=== PATIENT | male | born 1935 | race Caucasian/White ===

== ENCOUNTER 2023-07-11 21:37 | Emergency (ER) | payer OTHER, SELFPAY ==
[2023-07-11 21:41] VITALS: BP 166/96
[2023-07-11 22:29] VITALS: BMI 24.2
[2023-07-11 22:33] VITALS: BP 154/84
--- NOTE | 2023-07-12 02:42 | ED.GENMED ---
History of Present Illness
General
Chief Complaint: Blood Pressure Problem
Source: patient
Exam Limitations: none
Time Seen by Provider: 07/11/23 22:35
Nursing documentation reviewed up to this point in time: agreed with
Travel History
Have you had any contact with someone who has COVID-19?: No
Do you have any symptoms of coronavirus? Fever > 100 degrees, chills, cough, shortness of breath, sore throat, loss of taste or smell, muscle aches, or headache?: No
History of Present Illness
History of Present Illness:
Patient to ED with complaint of elevated blood pressure reading. States he is compliant with current regime. Follows with cardiology regulary. Last appointment was in Apr, no changes were made at that time. Brought to ED by spouse for eval.
Past History
Past History
ED Past Medical History: Asthma, Cancer (Prostate CA with Radiation), COPD, GERD, HTN (borderline) and Other (Bronchitis, BPH, Chronic sinus infections,)
ED Past Surgical History: Orthopedic (THUMB) and Other (UMBILICAL AND VENTRAL HERNIA REPAIR 01/25/13)
Social History
Tobacco: 2nd hand smoke exposure
Alcohol: None
Drug: None
Personal:
Living: alone
Employment: Retired
Family History
Family History: Hypertension; Negative Sudden
Phy Exam
General Physical Exam
General Presentation: well appearing and no apparent distress
General age: appears stated age
General Skin: warm and dry
General Habitus: normal
General Mental: alert
Cardiovascular Exam
Cardiovascular Exam: regular rate/rhythm and no edema
Pulmonary Exam
Pulmonary Exam: lungs clear, no respiratory distress and chest non tender
Neurological Exam
Neurological Exam: alert, oriented x3, no motor deficits, no sensory deficits and speech normal
Musculoskeletal Exam
Musculoskeletal Exam: full ROM and no edema
Skin Exam
Skin Exam: normal color, warm/dry and no rash
Psychiatric Exam
Psychiatric Exam: normal mood/affect
Course
Vital Signs
Initial and Last Documented VS:
Initial Vital Signs
Temp Pulse Resp BP Pulse Ox
98.7 F 74 18 166/96 97
07/11/23 21:41 07/11/23 21:41 07/11/23 21:41 07/11/23 21:41 07/11/23 21:41
Last Documented Vital Signs
Temp Pulse Resp BP Pulse Ox
98.7 F 68 18 154/84 97
07/11/23 21:41 07/11/23 22:33 07/11/23 22:33 07/11/23 22:33 07/11/23 22:33
*Radiology
Radiology exam reviewed: radiology read reviewed
*Pulse Oximetry
Patient hypoxic: no
*EKG
Interpretation: normal
Comparison EKG: no changes
*Critical Care Note
Total Time (30-74mins, 75-104mins- exclusive of procedures): Not Applicable
Update Note
Update Note:
Patient to ED with complaint of elevated bp. COmpliant with current mediation. No CP/pressure. Cardiology consulted. Recommending an additional dose of Coreg tonight, increasng BID doses to 12.5mg. BP improve after additional COreg dose. Still
mildly elevated at 150/100 but improved from readings prior to coreg dose. He will continue as planned and follow up with Cardiology on Friday. Also reporting daily heache at bedtime. Hx of migraines. Has been managing symptoms with accupuncture
but reports this does not seem to be helpful lately. States he was seen by neuro in the past, prescribed Maxalt but has since stopped med in favor of accupuncture. I do not feel his headaches are a result of BP elevation. Headaches are at the
same time each night. Recommend revisiting neurology for further management. Case discussed with Dr. Blount who also evaluated this patient, agtees with findings and plan. He is discharged home and will follow up as recommended.
ED Attending Note
-
Portions of this chart may have been created with voice recognition software.� Occasional wrong word or��sound alike� substitutions may have occurred due to the inherent limitations of voice recognition software.
Discharge Plan
Departure
Patient Disposition: Home (Routine Discharge)
Date of Disposition: 07/11/23
Time of Disposition: 23:40
Patient with high blood pressure during this ER visit?: No
Condition: Good
Covid-19: Not Applicable
Discharge Problem:
Elevated blood pressure reading, Shingles
Instructions: Shingles (DC), BLOOD PRESSURE
Prescriptions:
No Action
Centrum Silver 1 EACH tablet
1 ea PO DAILY
fenofibrate nanocrystallized 48 MG tablet
48 mg PO QPM
losartan 50 MG tablet
100 mg PO BID
Rx Instructions:
07/11/23-PATIENT ONLY SUPPOSE TO BE TAKING ONE (100MG DAILY) BUT TAKES 2 DAILY (200MG DAILY) A DAY
metoprolol succinate 50 MG tablet extended release 24 hr
50 mg PO DAILY
potassium gluconate 99 MG tablet
1 tab PO DAILY
Fish Oil 1 EACH capsule,delayed release(DR/EC)
2 ea PO BID
hydrochlorothiazide 12.5 MG tablet
12.5 mg PO DAILY
acetaminophen [Tylenol] 325 mg Tablet
650 mg PO QIDPRN PRN (Reason: MILD PAIN)
fexofenadine [Torri] 60 mg Tablet
60 mg PO HS
sennosides-docusate sodium [Senna-S] 8.6-50 mg Tablet
2.5 tab-cap PO DAILY
valacyclovir [Valtrex] 500 mg Tablet
500 mg PO TID
Patient Comments:
FOR 7 DAYS STARTING ON 07/10/23
aspirin 81 mg Tablet,Delayed Release (Dr/Ec)
81 mg PO DAILY
diphenhydramine HCl [Benadryl Allergy] 25 mg Tablet
50 mg PO HS
lansoprazole 30 mg Capsule,Delayed Release(Dr/Ec)
30 mg PO DAILY
montelukast [Singulair] 10 mg Tablet
10 mg PO HS
Gemtesa 75 mg Tablet
75 mg PO DAILY
Activity Restrictions/Additional Instructions:
Follow up with your family doctor on Friday.
Interventions
Interventions:
*Risk Screen - Suicide Last Done: 07/11/23 21:41
*General Assessment Last Done: 07/11/23 21:41
*Neglect/Abuse Screening Last Done: 07/11/23 21:41
ED- Fall Risk Assessment Last Done: 07/11/23 22:34
*ED COVID-19 Vaccine History Last Done: 07/11/23 21:41
*Nursing Disposition Last Done: 07/11/23 23:57
ED- Cardiac Assessment Last Done: 07/11/23 22:33
ED- Neurological Assessment Last Done: 07/11/23 22:33
ED- Pulmonary Assessment Last Done: 07/11/23 22:33
Discharge Date and Time
Discharge Date/Time: 07/11/23 23:57
== END 2023-07-11 23:57 | disposition home or self-care (01) ==
LOC: EMR 21:37
PROVIDERS: EMERGENCY PHYSICIAN Emergency Medicine; FAMILY PHYSICIAN Internal Medicine
DX: B02.9 Zoster without complications (principal); I10 Essential (primary) hypertension; Z77.22 Contact with and (suspected) exposure to environmental tobacco smoke (acute) (chronic)
CPT/HCPCS: 99283

== ENCOUNTER → 2023-08-15 15:02 | Outpatient (REF) | payer OTHER, SELFPAY | LOC: DHCBC HW 15:02 | PROVIDERS: ATTENDING PHYSICIAN Internal Medicine Cardiovascular Disease; FAMILY PHYSICIAN Internal Medicine | DX: I35.0 Nonrheumatic aortic (valve) stenosis (principal) | CPT/HCPCS: 93306 ==

== ENCOUNTER → 2023-12-16 14:46 | Outpatient (REF) | payer OTHER, SELFPAY ==
[2023-12-16 17:09] LABS: PSA, Total - Diagnostic 1.32 ng/ml (0.0-4.0)
== END ==
LOC: REG 14:46
PROVIDERS: ATTENDING PHYSICIAN Specialist; FAMILY PHYSICIAN Internal Medicine
DX: Z85.46 Personal history of malignant neoplasm of prostate (principal)
CPT/HCPCS: 36415; 84153

== ENCOUNTER 2023-12-25 02:13 | Inpatient (IN) | payer OTHER, SELFPAY ==
[2023-12-24 22:35] VITALS: BP 189/111
--- NOTE | 2023-12-24 22:37 | EDRN ---
Pts daughter Michele Woodruff can be reached at her cell as she is currently in [facility]
[2023-12-24 23:00] VITALS: BP 141/95
--- NOTE | 2023-12-24 23:11 | ED.GENMED ---
History of Present Illness
<AMEE Landin - Last Filed: 12/24/23 23:34>
General
Chief Complaint: Blood Pressure Problem
Source: patient
Time Seen by Provider: 12/24/23 22:36
History of Present Illness
History of Present Illness:
Patient is an 88 y/o male with PMHx of HTN, HLD, prostate CA, DVT, and COPD presenting with elevated blood pressure. Patient does not appear to be the most reliable historian. He states he missed his dose of BP meds on Friday and when he checked his
pressure on Friday is systolic was 88. He states he called his PCP and they told him to increase his water intake. The patient states he decided not to take his BP medications although his PCP did not tell him to discontinue them. The patient states
he checked his pressure today after being off his medications since Friday and his systolic was 202. He states he has also had increased SOB since Friday. He states he does 3 nebulizer treatments daily and he has still be short of breath. He also
notes he became nauseous after dinner tonight around 6 pm and had 1 episode of nonbloody emesis. He denies any dizziness, change in vision, cough, chest pain, abdominal pain, diarrhea, or urinary sx. He states his left leg has been swollen since his
DVT in the past. He denies any pain or cramping in either leg.
<Richie Bro DO - Last Filed: 12/25/23 01:15>
General
Exam Limitations: none
Nursing documentation reviewed up to this point in time: agreed with
Past History
<AMEE Landin - Last Filed: 12/24/23 23:34>
Past History
ED Past Medical History: Asthma, Cancer (Prostate CA with Radiation), COPD, GERD, HTN (borderline) and Other (Bronchitis, BPH, Chronic sinus infections,)
ED Past Surgical History: Orthopedic (THUMB) and Other (UMBILICAL AND VENTRAL HERNIA REPAIR 01/25/13)
Social History
Tobacco: 2nd hand smoke exposure
Alcohol: None
Drug: None
Personal:
Living: alone
Employment: Retired
Family History
Family History: Hypertension; Negative Sudden
<Richie Bro, DO - Last Filed: 12/25/23 01:15>
Past History
ED Past Medical History: Other (Bronchitis, BPH, Chronic sinus infections, DVT)
Review of Systems
<Richie Bro, DO - Last Filed: 12/25/23 01:15>
Review of Systems
Allergies reviewed?: Yes
All Other Systems: Not applicable
Respiratory: Reports trouble breathing
Cardiac: Reports chest pain
Musculoskeletal: Reports edema
Phy Exam
<AMEE Landin - Last Filed: 12/24/23 23:34>
Physical Exam
Physical Exam:
GENERAL: Alert , in no apparent distress
EYE: pupils equal and reactive
Throat: Airway intact, no exudates
NECK: Supple, no significant adenopathy.
CARDIAC: Regular rate and rhythm .
LUNGS: Patient with short, labored breathing. Clear breath sounds bilaterally, no wheezes/rales/rhonchi
ABDOMEN: Soft, nondistended, nontender, no cvat
NEUROLOGICAL: AAOx3, no focal neuro deficits
SKIN: Warm and dry, skin intact.
MUSCULOSKELETAL: Left LE edema from the knee down. Dorsalis pedis pulses 2+ b/l. No calf tenderness.
PSYCH: Normal and appropriate interaction.
Course
<AMEE Landin - Last Filed: 12/24/23 23:34>
Orders/Labs/Results
Orders:
Orders
12/24/23 23:08
IV Insert/Care/Rem.- Treatment PRN
Losartan [Cozaar] 100 mg PO NOW STA
Metoprolol [Lopressor] 50 mg PO NOW STA
Pulse Ox/cont/shift [RESP] Stat
Quantity: 1
12/24/23 23:09
Electrocardiogram (*1) Stat
Reason for Study: Other
Other Reason for Exam: chest pain
Cardiac Monitoring- Treatment ONCE
EKG- Treatment ONCE
CR Chest - 2 Views Urgent
Comment:
Reason For Exam: short of breath
12/24/23 23:45
Comprehensive Metabolic Panel Urgent
D-Dimer Urgent
PTT Urgent
Prothrombin Time Urgent
Serum Osmolality Urgent
Comment: ADD ON
12/24/23 23:46
Complete Blood Count/With Diff Urgent
NT-proBNP Urgent
Troponin I Urgent
12/25/23 00:18
Legs, left US [US Periph Venous LOWER Ext LT] Urgent
Comment:
Reason For Exam: left leg swelling
12/25/23 00:19
CT Chest Pe Study Urgent
Comment:
Reason For Exam: short of breath elevated ddimer
Urine Sodium Urgent
12/25/23 00:20
Add On- LAB Urgent
Tests Added?: serum osmolality
Osmolality, Random Urine Urgent
12/25/23 00:41
Heparin 5,900 units IV NOW STA
12/25/23 00:[address] Non Medication Order As Directed
Physician Order: PTT 6 hours after initial start of Heparin infusion
12/25/23 00:45
Heparin 08665 Units/250 ml 25,000 units in 250 ml IV PER PROTOCOL
Weight to be used for heparin protocol in kilograms (kg):: 73.3
Protocol:: DVT/PE
PTT Goal Range to be used:: PTT 73 to 111 seconds
Order type:: Initial
INITIAL Infusion Dose (UNITS/KG/hr) & then follow protocol:: 18 units/kg/hr
Infusion Dose in UNITS/hr & then follow protocol (UNITS/hr):: 1,300
INFUSION RATE in mL/hr & then follow protocol (mL/hr):: 13
For DVT/PE algorithm, re-bolus for low PTT?: Yes
PTT less than or equal to 64 seconds:: Re-bolus 80 units/kg (max 10,000units). Increase by 300 units/hr
(+ 3mL/hr)
PTT 64.1 to 72.9 seconds:: Re-bolus 40 units/kg (max 5,000 units). Increase by 100 units/hr
(+ 1mL/hr)
PTT 73 to 111 seconds:: Target Range. No change in rate.
PTT 111.1 to 130.9 seconds:: Decrease rate by 100 units/hr (- 1 mL/hr)
PTT 131 to 199.9 seconds:: HOLD for 1 hr. Then decrease by 200 units/hr (- 2mL/hr)
PTT greater than or equal to 200 seconds:: HOLD for 2 hrs & Notify Provider. Then decrease by 300 units/hr
(- 3mL/hr)
Lab follow-up:: Each change, PTT q6h until 2 consecutive are therapeutic. Then
PTT daily.
12/25/23 01:00
Flush (0.9% Sodium Chloride) [Flush (Nss)] See Dose Instructions IV PER PROTOCOL
Heparin 5,900 units IV PRN PRN
12/25/23 01:02
Heparin 3,000 units IV PRN PRN
Abnormal Lab Results
12/24/23 12/24/23
23:45 23:46
WBC 12.4 H 10^3/uL
(4.8-10.8)
RBC 4.24 L 10^6/uL
(4.70-6.10)
Hgb 12.5 L g/dL
(13.0-18.0)
Hct 34.1 L %
(39.0-52.0)
Abs Immat Gran (auto) 0.2 H 10^3/uL
(0-0.05)
Absolute Neuts (auto) 8.9 H 10^3/uL
(1.4-6.5)
Absolute Lymphs (auto) 1.0 L 10^3/uL
(1.2-3.4)
Absolute Monos (auto) 1.8 H 10^3/uL
(0.1-0.6)
Immature Gran % 1.5 H %
(0-0.5)
Lymphocytes % 8.3 L %
(20.5-51.1)
Monocytes % 14.1 H %
(1.7-9.3)
D-Dimer 5.47 H ug/mlFEU
(0.00-0.50)
Sodium 119 L* mmol/L
(135-145)
Chloride 91 L mmol/L
(98-107)
Carbon Dioxide 20 L mmol/L
(22-30)
BUN 22 H mg/dl
(9-20)
Glucose 109 H mg/dl
(70-99)
Serum Osmolality 253 L mOsm/kg
(275-300)
Total Bilirubin 2.0 H mg/dl
(0.2-1.3)
Troponin I 0.554 H* ng/ml
12/24/23 23:46
12/24/23 23:45
Vital Signs
Initial and Last Documented VS:
Initial Vital Signs
Temp Pulse Resp BP Pulse Ox
98.6 F 99 18 189/111 97
12/24/23 22:35 12/24/23 22:35 12/24/23 22:35 12/24/23 22:35 12/24/23 22:35
Last Documented Vital Signs
Temp Pulse Resp BP Pulse Ox
98.6 F 92 20 155/95 97
12/24/23 22:35 12/25/23 00:00 12/25/23 00:00 12/25/23 00:00 12/25/23 00:00
<Richie Bro, DO - Last Filed: 12/25/23 01:15>
Orders/Labs/Results
Orders:
Orders
12/24/23 23:08
IV Insert/Care/Rem.- Treatment PRN
Losartan [Cozaar] 100 mg PO NOW STA
Metoprolol [Lopressor] 50 mg PO NOW STA
Pulse Ox/cont/shift [RESP] Stat
Quantity: 1
12/24/23 23:09
Electrocardiogram (*1) Stat
Reason for Study: Other
Other Reason for Exam: chest pain
Cardiac Monitoring- Treatment ONCE
EKG- Treatment ONCE
CR Chest - 2 Views Urgent
Comment:
Reason For Exam: short of breath
12/24/23 23:45
Comprehensive Metabolic Panel Urgent
D-Dimer Urgent
PTT Urgent
Prothrombin Time Urgent
Serum Osmolality Urgent
Comment: ADD ON
12/24/23 23:46
Complete Blood Count/With Diff Urgent
NT-proBNP Urgent
Troponin I Urgent
12/25/23 00:18
Legs, left US [US Periph Venous LOWER Ext LT] Urgent
Comment:
Reason For Exam: left leg swelling
12/25/23 00:19
CT Chest Pe Study Urgent
Comment:
Reason For Exam: short of breath elevated ddimer
Urine Sodium Urgent
12/25/23 00:20
Add On- LAB Urgent
Tests Added?: serum osmolality
Osmolality, Random Urine Urgent
12/25/23 00:41
Heparin 5,900 units IV NOW STA
12/25/23 00:[address] Non Medication Order As Directed
Physician Order: PTT 6 hours after initial start of Heparin infusion
12/25/23 00:45
Heparin [id number] Units/250 ml 25,000 units in 250 ml IV PER PROTOCOL
Weight to be used for heparin protocol in kilograms (kg):: 73.3
Protocol:: DVT/PE
PTT Goal Range to be used:: PTT 73 to 111 seconds
Order type:: Initial
INITIAL Infusion Dose (UNITS/KG/hr) & then follow protocol:: 18 units/kg/hr
Infusion Dose in UNITS/hr & then follow protocol (UNITS/hr):: 1,300
INFUSION RATE in mL/hr & then follow protocol (mL/hr):: 13
For DVT/PE algorithm, re-bolus for low PTT?: Yes
PTT less than or equal to 64 seconds:: Re-bolus 80 units/kg (max 10,000units). Increase by 300 units/hr
(+ 3mL/hr)
PTT 64.1 to 72.9 seconds:: Re-bolus 40 units/kg (max 5,000 units). Increase by 100 units/hr
(+ 1mL/hr)
PTT 73 to 111 seconds:: Target Range. No change in rate.
PTT 111.1 to 130.9 seconds:: Decrease rate by 100 units/hr (- 1 mL/hr)
PTT 131 to 199.9 seconds:: HOLD for 1 hr. Then decrease by 200 units/hr (- 2mL/hr)
PTT greater than or equal to 200 seconds:: HOLD for 2 hrs & Notify Provider. Then decrease by 300 units/hr
(- 3mL/hr)
Lab follow-up:: Each change, PTT q6h until 2 consecutive are therapeutic. Then
PTT daily.
12/25/23 01:00
Flush (0.9% Sodium Chloride) [Flush (Nss)] See Dose Instructions IV PER PROTOCOL
Heparin 5,900 units IV PRN PRN
12/25/23 01:02
Heparin 3,000 units IV PRN PRN
Abnormal Lab Results
12/24/23 12/24/23
23:45 23:46
WBC 12.4 H 10^3/uL
(4.8-10.8)
RBC 4.24 L 10^6/uL
(4.70-6.10)
Hgb 12.5 L g/dL
(13.0-18.0)
Hct 34.1 L %
(39.0-52.0)
Abs Immat Gran (auto) 0.2 H 10^3/uL
(0-0.05)
Absolute Neuts (auto) 8.9 H 10^3/uL
(1.4-6.5)
Absolute Lymphs (auto) 1.0 L 10^3/uL
(1.2-3.4)
Absolute Monos (auto) 1.8 H 10^3/uL
(0.1-0.6)
Immature Gran % 1.5 H %
(0-0.5)
Lymphocytes % 8.3 L %
(20.5-51.1)
Monocytes % 14.1 H %
(1.7-9.3)
D-Dimer 5.47 H ug/mlFEU
(0.00-0.50)
Sodium 119 L* mmol/L
(135-145)
Chloride 91 L mmol/L
(98-107)
Carbon Dioxide 20 L mmol/L
(22-30)
BUN 22 H mg/dl
(9-20)
Glucose 109 H mg/dl
(70-99)
Serum Osmolality 253 L mOsm/kg
(275-300)
Total Bilirubin 2.0 H mg/dl
(0.2-1.3)
Troponin I 0.554 H* ng/ml
12/24/23 23:46
12/24/23 23:45
Vital Signs
Initial and Last Documented VS:
Initial Vital Signs
Temp Pulse Resp BP Pulse Ox
98.6 F 99 18 189/111 97
12/24/23 22:35 12/24/23 22:35 12/24/23 22:35 12/24/23 22:35 12/24/23 22:35
Last Documented Vital Signs
Temp Pulse Resp BP Pulse Ox
98.6 F 92 20 155/95 97
12/24/23 22:35 12/25/23 00:00 12/25/23 00:00 12/25/23 00:00 12/25/23 00:00
<Richie Bro DO - Last Filed: 12/25/23 01:15>
MDM/Problems Addressed
Differential Diagnosis Includes:
CHF, PE, pneumonia
MDM/Problems Addressed:
88-year-old male with bilateral PE, elevated troponin, elevated BNP hyponatremia. Suspect hyponatremia from excessive water intake. No signs of pulmonary infarct or heart strain on CT scan. Heparin ordered. Admit to hospitalist.
Chronic conditions affecting care: HTN and Other (Prior DVT)
Acute Exacerbation and/or Progression of Chronic Illness: HTN
<AMEE Landin - Last Filed: 12/24/23 23:34>
*Pulse Oximetry
Patient hypoxic: no
*EKG
Interpreted by ED Provider?: Yes
EKG Intrepretation Date: 12/24/23
Interpretation: abnormal
Comparison EKG: changes noted (PREMATURE VENTRICULAR COMPLEXES ARE NOW PRESENT. RIGHT BUNDLE BRANCH BLOCK IS NOW PRESENT)
Heart Rate: 94
Rate: normal
Rhythm: sinus and PVC's
[place]: normal axis
Interval: normal interval
QRS Pattern: right bundle branch block
Ischemia: no ischemia
*Finishing Range Feeder Interpretation
Rate: Finishing Range Feeder- N/A
*Critical Care Note
Total Time (30-74mins, 75-104mins- exclusive of procedures): Not Applicable
<Richie Bro DO - Last Filed: 12/25/23 01:15>
*Radiology
Radiology exam reviewed: preliminary read by ED provider (CT chest shows bilateral pulmonary emboli)
*Finishing Range Feeder Interpretation
Rate: normal
Interpretation: normal
Heart Rate: 92
Rhythm: sinus
*Critical Care Note
Total Time (30-74mins, 75-104mins- exclusive of procedures): 30
comment:
Critical care statement: A total of 30 minutes of critical care time was provided for this patient. This includes management of unstable vital signs, evaluation of the patient at bedside, reviewing the patient's pertinent medical records, discussion
with consultants, review of old EKGs and review of pertinent medical records. This time with separate from time utilized to perform the aforementioned documented procedures
Data Reviewed
Review of Other/Old Records Reveals: Labs (Prior sodium 139 on 05/10/2023)
Source: records
Prescriptions/Medications Considered But Not Given:
TNK considered, but not indicated
<Richie Bro DO - Last Filed: 12/25/23 01:15>
Patient Management
Social determinants of health affecting care: Living situation
Discussion with other providers: Hospitalist and Radiologist (Night vision radiologist)
Escalation/DeEscalation of care consider admission/obs:
Admit indicated
ED Attending Note
<AMEE Landin - Last Filed: 12/24/23 23:34>
-
Portions of this chart may have been created with voice recognition software.� Occasional wrong word or��sound alike� substitutions may have occurred due to the inherent limitations of voice recognition software.
<Richie Bro DO - Last Filed: 12/25/23 01:15>
ED Attending Note
Patient seen and examined by attending physician: Yes
I performed a history and physical exam of patient and discussed management with resident, I reviewed resident's note and agree with documented findings and plan of care.: Yes
ED Attending Note:
I have reviewed and agree with history and treatment plan by Lion Calle. My exam revealed
Physical Exam
General: no apparent distress, not acutely ill, 141/95
Neck: supple. no meningeal signs. normal posterior pharynx
Heart: s1/s2 regular rate and rhythm, no murmur. equal radial
pulses.
HEENT: Pupils equal round reactive to light, EOMI
Lungs: no acute respiratory distress. clear bilaterally
Abdomen: normal bowel sounds. not tender. no CVAT
Neuro: alert and oriented. no focal neurological deficits cranial nerves II through XII intact
Skin: no rash
Psychiatric: well kept. interactive and cooperative
Extremities: no edema. no calf tenderness. negative homans. good distal pulses
Blood pressure improved with observation. Will check chest x-ray and labs. Patient denies symptoms at this time.
Discharge Plan
Departure
Patient Disposition: Admit
Date of Disposition: 12/25/23
Time of Disposition: 00:48
Admit to: IMU
Presentation/result/management discussed w/ accepting MD/DO: Hospitalist
Patient with high blood pressure during this ER visit?: Yes
Condition: Fair
Discharge Problem:
Bilateral pulmonary embolism, Acute hyponatremia
Prescriptions:
No Action
Centrum Silver 1 EACH tablet
1 ea PO DAILY
fenofibrate nanocrystallized 48 MG tablet
48 mg PO QPM
losartan 50 MG tablet
100 mg PO BID
Rx Instructions:
07/11/23-PATIENT ONLY SUPPOSE TO BE TAKING ONE (100MG DAILY) BUT TAKES 2 DAILY (200MG DAILY) A DAY
metoprolol succinate 50 MG tablet extended release 24 hr
50 mg PO DAILY
potassium gluconate 99 MG tablet
1 tab PO DAILY
Fish Oil 1 EACH capsule,delayed release(DR/EC)
2 ea PO BID
hydrochlorothiazide 12.5 MG tablet
12.5 mg PO DAILY
acetaminophen [Tylenol] 325 mg Tablet
650 mg PO QIDPRN PRN (Reason: MILD PAIN)
fexofenadine [Torri] 60 mg Tablet
60 mg PO HS
sennosides-docusate sodium [Senna-S] 8.6-50 mg Tablet
2.5 tab-cap PO DAILY
valacyclovir [Valtrex] 500 mg Tablet
500 mg PO TID
Patient Comments:
FOR 7 DAYS STARTING ON 07/10/23
aspirin 81 mg Tablet,Delayed Release (Dr/Ec)
81 mg PO DAILY
diphenhydramine HCl [Benadryl Allergy] 25 mg Tablet
50 mg PO HS
lansoprazole 30 mg Capsule,Delayed Release(Dr/Ec)
30 mg PO DAILY
montelukast [Singulair] 10 mg Tablet
10 mg PO HS
Gemtesa 75 mg Tablet
75 mg PO DAILY
Referrals:
Amador Westfall MD [Family Provider] -
Interventions
Interventions:
*Risk Screen - Suicide Last Done: 12/24/23 22:35
*General Assessment Last Done: 12/24/23 22:35
*Neglect/Abuse Screening Last Done: 12/24/23 22:35
ED- Fall Risk Assessment Last Done: 12/24/23 23:48
*ED COVID-19 Vaccine History Last Done: 12/24/23 22:35
ED- Cardiac Assessment Last Done: 12/24/23 22:39
ED- Neurological Assessment Last Done: 12/24/23 22:39
ED- Pulmonary Assessment Last Done: 12/24/23 22:39
Discharge Date and Time
Print Language: BELARUSIAN
[2023-12-24 23:40] VITALS: BP 153/81
[2023-12-24 23:53] LABS: % Basophils 0.2 % (0-2); % Immature Granulocytes 1.5 % (0-0.5); % Lymphocytes 8.3 % (20.5-51.1); % Monocytes 14.1 % (1.7-9.3); % Neutrophils 71.9 % (42.2-75.2); Absolute Eosinophils 0.5 10^3/uL (0-0.7); Absolute Immature Granulocytes 0.2 10^3/uL (0-0.05); Absolute Monocytes 1.8 10^3/uL (0.1-0.6); Absolute Neutrophils 8.9 10^3/uL (1.4-6.5); Hematocrit 34.1 % (39.0-52.0); Hemoglobin 12.5 g/dL (13.0-18.0); Mean Corp Hgb Conc. 36.7 g/dL (33.0-37.0); Mean Corpuscular Hgb 29.5 pg (27.0-31.0); Mean Corpuscular Volume 80.4 fL (80.0-94.0); Mean Platelet Volume 9.2 fL (7.4-10.4); Nucleated Red Blood Cells % 0 % (-); Platelet Count 164 10^3/uL (130-400); Red Blood Cell Count 4.24 10^6/uL (4.70-6.10); Red Cell Dist. Width 12.8 % (11.5-14.5); White Blood Cell Count 12.4 10^3/uL (4.8-10.8)
[2023-12-25] VITALS (20 sets, daily range): BP systolic 107–169; BP diastolic 69–124; BMI 24.8
[2023-12-25 00:04] LABS: INR 1.11; PT 14.4 Sec (11.4-14.6)
[2023-12-25 00:05] LABS: APTT 31.8 Sec (23.4-35.0)
[2023-12-25 00:15] LABS: D-Dimer 5.47 ug/mlFEU (0.00-0.50)
[2023-12-25 00:17] LABS: ALT (SGPT) 20 U/L (0-50); AST (SGOT) 51 U/L (17-59); Albumin 3.5 g/dl (3.5-5.0); Alkaline Phosphatase 95 U/L (38-126); Blood Urea Nitrogen 22 mg/dl (9-20); Calcium 8.9 mg/dl (8.4-10.2); Carbon Dioxide 20 mmol/L (22-30); Chloride 91 mmol/L (98-107); Glucose 109 mg/dl (70-99); Potassium 4.4 mmol/L (3.5-5.1); Sodium 119 mmol/L (135-145); Total Protein 6.5 g/dl (6.3-8.2); eGFR 52.84
[2023-12-25 00:20] LABS: NT-proBNP 8530 pg/ml; Troponin I 0.554 ng/ml
[2023-12-25 01:05] LABS: Osmolality Serum 253 mOsm/kg (275-300)
[2023-12-25] MEDS: HEPARIN 5900 UNITS IV (01:26)
[2023-12-25] MEDS: HEPARIN 25000 UNITS/250 ML IV (01:26)
[2023-12-25] MEDS: MORPHINE SULFATE 2 MG IV ×4 (01:32→13:40)
--- NOTE | 2023-12-25 01:33 | HPS.HSE ---
Family Physician
-
Family Physician: Amaodr Westfall
Chief Complaint
-
Chest Pain / SOB
History of Present Illness
Patient is an 88y M with PMH significant for hypertension and prior DVT / PE who presents to ED complaining of chest pain, dyspnea and BP issues. Patient states that his symptoms started on Friday when he forgot to take his BP meds in the AM.
He states that his girlfriend woke him from a nap around 8PM and he took his medicines at that time. He took his usual medications the following morning. Later on Friday, patient noted some discomfort in the L chest / breast area. He checked his
BP at home and states that it was 88 systolic. He called and spoke with his physician who advised him to drink plenty of fluids. Patient states that he has been drinking as much as he can for the past 3 days. His BP improved and, in fact, it was
high today at home with systolic value right around 200.
Patient also continued to have chest discomfort that was intermittent, on the right or left and not associated with activity.
He felt significantly short of breath and presented to the ED for further evaluation and treatment.
Patient denies any cough, fevers / chills, N/V/D or urinary complaints.
He reports a prior history of blood clots in the lungs and notes that his current symptoms feel similar.
Patient was maintained on oral anticoagulation with Eliquis for quite some time.
He states that about 9 months ago he had a hypercoagulable work-up by Hematology and his OAC was discontinued. He describes follow-up D-Dimer testing which was reportedly unremarkable.
Medical History
Past Medical History
Past Medical History: Reports Other
Additional Past Medical History:
Prostate Cancer s/p XRT
Hypertension
Moderate Persistent Asthma
History of DVT / PE (2019)
History of Cardiomyopathy
OAB / BPH
Non-Melanoma Skin Cancer
Past Surgical History: Reports Other
Additional Past Surgical History:
Herniorrhaphy
Nasal Polypectomy
Mohs Surgery
Thumb Surgery
Social History
Tobacco: Non-smoker (Significant second hand exposure as his of many years smoked indoors.)
Alcohol: None
Drug: None
Family History
Family History: Other (Father: DVT / PE Mother: Longevity)
Allergies / Home Medications
Allergies reflects when Allergies were last updated in [facility].
Home Medications with original date entered in [facility]
Allergy/Medication List:
Allergies
Allergy/AdvReac Type Severity Reaction Status Date / Time
No Known Allergies Allergy Verified 01/06/23 11:50
Home Medications
fenofibrate nanocrystallized 48 mg tablet 48 mg PO QPM High cholesterol 10/05/12
vwvcyfko-mpz-jwsgs acid 0.4 mg-lycopene 300 mcg-lutein 250 mcg tablet (Centrum Silver) 1 ea PO DAILY Supplement 10/05/12
losartan 50 mg tablet 100 mg PO DAILY Blood pressure 09/09/18
metoprolol succinate 50 mg tablet,extended release 24 hr 50 mg PO DAILY Heart disease/condition 09/09/18
potassium gluconate 595 mg (99 mg) tablet 0.5 tab PO HS Electrolyte Repletion 07/19/20
omega 3-lvv-jue-fish oil 900 mg-1,400 mg capsule,delayed release (Fish Oil) 2 ea PO BID Supplement 07/22/20
hydrochlorothiazide 12.5 mg tablet 12.5 mg PO DAILY Blood pressure 04/08/21
aspirin 81 mg tablet,delayed release 81 mg PO DAILY 07/11/23
fexofenadine 60 mg tablet 180 mg PO HS 07/11/23
lansoprazole 30 mg capsule,delayed release 30 mg PO DAILY 07/11/23
montelukast 10 mg tablet (Singulair) 10 mg PO HS 07/11/23
vibegron 75 mg tablet (Gemtesa) 75 mg PO DAILY 07/11/23
albuterol sulfate 2.5 mg/3 mL (0.083 %) solution for nebulization 2.5 mg inhalation TID 12/25/23
budesonide 0.5 mg/2 mL suspension for nebulization 0.5 mg inhalation BID 12/25/23
coenzyme Q10 100 mg capsule (CoQ-10) 100 mg PO BID 12/25/23
solifenacin 10 mg tablet (Vesicare) 10 mg PO DAILY 12/25/23
Review of Systems
-
History Source: Patient
A 12 point ROS was completed and negative except as noted: Yes
Constitutional: Reports Fatigue; Denies Fever or Chills
EENT: Denies Sore Throat or Runny Nose
Respiratory: Reports Trouble Breathing; Denies Cough or Hemoptysis
Cardiac: Reports Chest Pain; Denies Diaphoresis or Palpitations
Abdomen/GI: Denies Abdominal Pain, Nausea, Vomiting or Diarrhea
: Denies Dysuria, Frequency or Flank Pain
Musculoskeletal: Denies Joint Pain or Edema
Neurological: Denies Dizzy or Headache
Psych: Denies Depression or Anxiety
Physical Exam
Vital Signs
Vital Signs
Temp Pulse Resp BP Pulse Ox
98.6 F 100 31 169/104 95
12/24/23 22:35 12/25/23 01:15 12/25/23 01:15 12/25/23 01:03 12/25/23 01:15
Physical Exam
General: Other (88y M in mild distress due to chest pain / dyspnea.)
HEENT: Moist mucous membranes, PERRLA and Other (No JVD,)
Respiratory: Other (Decreased BS at bases - otherwise clear.)
Cardiac: S1/S2, Tachycardia and Murmur (II/ KELLEY)
GI: Soft, Non Tender, Non Distended and Normal Bowel Sounds
Musculoskeletal: No Clubbing, No Cyanosis and Other (Trace edema at the L ankle. No calf tenderness / cords.)
Neuro: AO x 3
Laboratory Results
-
12/24/23 23:46
12/24/23 23:45
Laboratory Results
PT 14.4 Sec (11.4-14.6) 12/24/23 23:45
INR 1.11 12/24/23 23:45
APTT 31.8 Sec (23.4-35.0) 12/24/23 23:45
Total Bilirubin 2.0 mg/dl (0.2-1.3) H 12/24/23 23:45
AST 51 U/L (17-59) 12/24/23 23:45
ALT 20 U/L (0-50) 12/24/23 23:45
Alkaline Phosphatase 95 U/L (38-126) 12/24/23 23:45
Troponin I 0.554 ng/ml H* 12/24/23 23:46
Impression/Plan
-
A/P: Patient is an 88y M with PMH significant for hypertension and prior DVT / PE who presents to ED complaining of chest pain and SOB.
Bilateral Pulmonary Emboli
Non-Ischemic Myocardial Injury secondary to the above
- Admit for further evaluation and treatment.
- Despite discomfort and clot burden visualized on CTA, no significant heart strain appreciated by imaging and BP / SpO2 are not even remotely low.
- Troponin and BNP both elevated. Follow troponin to peak.
- Begin IV heparin infusion and maintain for 24 - 48 hours.
- Pulmonary and Cardiology evaluations.
- Check Echo in the AM for further evaluation.
- Supportive care / symptom control / pain control.
- Follow for clinical improvement.
- Would likely continue with lifelong anticoagulation following this event.
Hyponatremia
- Likely secondary to increased fluid intake over the past 3 days + HCTZ use + increased ADH state secondary to pain, dyspnea, pulmonary process.
- No clear symptoms at this time attributable to Na level.
- Fluid restrict and follow for improvement in Na.
- Stop HCTZ.
- Consider Lasix dosing, but without hypoxemia, rales, etc would defer until after Echo is completed.
- Urine studies ordered / pending.
- Consider Nephrology evaluation if hyponatremia does not readily correct with fluid restriction.
Benign Hypertension
- Labile BP over the past several days - in part due to med dosing errors, volume shifts, pain, etc.
- BP currently elevated.
- Follow for changes with PE treatment, pain control, etc.
- Continue metoprolol and losartan with holding parameters.
- Hold HCTZ as noted above.
Moderate Persistent Asthma
- No active wheezing appreciated on exam, SpO2 is acceptable on room air.
- Continue budesonide. Albuterol PRN.
- Follow for any changes / new symptoms.
BPH / OAB
History of Prostate Cancer s/p XRT
- Hold OAB medications acutely.
- Bladder scan protocols.
DVT Prophylaxis
- On IV heparin for PE as noted above.
- Check LE dopplers in the AM to evaluate for recurrent PE as well, but can be done on routine basis as patient already being anticoagulated.
Code Status: DNR
[2023-12-25 04:17] LABS: Troponin I 0.546 ng/ml
--- NOTE | 2023-12-25 04:20 | PTCARENOTE ---
Received pt on stretcher from ED and received report from YSABEL Hartman. Pt came in w/ chest pain, dyspnea and BP issues. Pt AAOx3, Vitals 0400: 127/87, 99% RA, RR 21. HR 91. Heparin gtt running at 13 mL/hr, PTT to be drawn @ 0726. Pt was nauseous and
vomiting upon arrival to the unit, but no further c/o of n/v. Pt oriented to unit. Resting in bed with call lorenzana in reach.
[2023-12-25 04:42] LABS: Blood Urea Nitrogen 21 mg/dl (9-20); Carbon Dioxide 20 mmol/L (22-30); Chloride 90 mmol/L (98-107); Estimated Creatinine Clearance 35 ml/min; Glucose 112 mg/dl (70-99); HDL Cholesterol 47 mg/dl; LDL Cholesterol, Calculated 67 mg/dl; Potassium 4.3 mmol/L (3.5-5.1); Sodium 120 mmol/L (135-145); Total Cholesterol 123 mg/dl (50-199); Triglyceride 46 mg/dl (10-149); Very Low Density Lipoprotein 9 mg/dl (0-30); eGFR 52.84
[2023-12-25] MEDS: PULMICORT 0.5 MG INH ×2 (04:59→19:41)
[2023-12-25] MEDS: VENTOLIN NEBULES 2.5 MG INH ×4 (05:00→19:41)
--- NOTE | 2023-12-25 06:22 | PTCARENOTE ---
Morning EKG showed afib w/ RVR, pt denied a hx of afib and not mentioned in chart. HR is 90-100s, current BP 135/85. Completed a 2nd EKG and it showed sinus tach. Going in and out of afib, and having PVCs and PACs while in sinus tach. Reached out to
CLINICAL NURSING DIRECTOR, no new orders at this time. Pt to get an echo today.
[2023-12-25] MEDS: PROTONIX 40 MG PO (07:29)
[2023-12-25] MEDS: COZAAR 100 MG PO (07:29)
[2023-12-25] MEDS: ASPIR LOW (ENTERIC COATED) 81 MG PO (07:29)
[2023-12-25] MEDS: TOPROL XL 50 MG PO (07:29)
--- NOTE | 2023-12-25 08:42 | CON.PUL ---
Consultation
Consultation Request
Date/Time Consultation Requested: 12/24
Date/Time Consultation Performed: 12/24
Reason for Consultation: Acute PE
Medical History
-
History of Present Illness:
History obtained from the chart, patient and reviewing outpatient records. Patient is a pleasant 88-year-old male with history of interstitial lung disease, bronchiectasis, recurrent sinusitis, history of DVT in 2018 with a PE at that time, was on
anticoagulation, discontinued recently per hematology in the last 6 to 12 months. Patient was in his usual state of health until Friday prior to admission he developed right-sided chest discomfort, pleuritic in nature. With this he had some
associated shortness of breath. He did fall on Friday, due to lightheadedness. He checked his blood pressure and it was 88 systolic. He called his professor of communication, was told to take 48 ounces of fluid. With this his blood pressure went up into the
200s. For this reason he brought himself into [facility]. He is compliant with his nebulized treatment as an outpatient. He also describes an episode of emesis. He describes chronic left leg swelling but no new changes in swelling or leg
pain, changes in weight, denies any recent travel. Upon arrival to [facility], afebrile, pulse 99, breathing at 18, blood pressure 189/111, 97%. He was given his antihypertensive therapy. Because of shortness of breath and elevated
D-dimer he had a CT chest which confirmed bilateral PE. He was started on heparin therapy. He was also noted to have sodium level of 119. For this reason he was admitted for further management. We are asked to comment on his pulmonary status.
Of note CT imaging did not reveal any evidence of right heart strain but he did have an elevated troponin and proBNP.
.
PMH: History of asthma with recurrent bronchitis, sinusitis, bronchiectasis, history of PE/DVT in 2018 on anticoagulation for 5 years, recently discontinued per hematology within the last year, pulm hypertension PA pressure 60 in the past, history
of pneumonia with bronchoscopy 2014 with positive fungal culture for Nocardia abscess, sleep apnea off CPAP therapy since 2016, history of prostate cancer radiation 2007, skin cancer, CHF, stroke, history of falls. History of gastric surgery with
gastric ulcer/esophageal ulcer 2020
Past Medical History
Past Medical History: None (See above)
Past Surgical History: None (See above)
Social History
Tobacco: Non-smoker
Alcohol: Occasional
Drug: None
Personal: Partner (Lives with girlfriend)
Living: Alone (Lives with girlfriend)
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
Family History
Family History: Other (Father from heart attack age 76, mother at age 92.)
Allergies / Home Medications
Allergies
Allergy/AdvReac Type Severity Reaction Status Date / Time
No Known Allergies Allergy Verified 01/06/23 11:50
Home Medications
�Medication �Instructions �Recorded �Confirmed �Last Taken �Type
fenofibrate nanocrystallized 48 mg 48 mg PO QPM High cholesterol 10/05/12 12/25/23 07/10/23 History
tablet
iuerscyx-pvd-yxpfq acid 0.4 1 ea PO DAILY Supplement 10/05/12 12/25/23 07/11/23 History
mg-lycopene 300 mcg-lutein 250 mcg
tablet (Centrum Silver)
losartan 50 mg tablet 100 mg PO DAILY Blood pressure 09/09/18 12/25/23 07/11/23 History
metoprolol succinate 50 mg 50 mg PO DAILY Heart 09/09/18 12/25/23 07/11/23 History
tablet,extended release 24 hr disease/condition
potassium gluconate 595 mg (99 mg) 0.5 tab PO HS Electrolyte Repletion 07/19/20 12/25/23 07/11/23 History
tablet
omega 8-qui-ipi-fish oil 900 2 ea PO BID Supplement 07/22/20 12/25/23 07/11/23 History
mg-1,400 mg capsule,delayed
release (Fish Oil)
hydrochlorothiazide 12.5 mg tablet 12.5 mg PO DAILY Blood pressure 04/08/21 12/25/23 07/11/23 History
aspirin 81 mg tablet,delayed 81 mg PO DAILY 07/11/23 12/25/23 07/11/23 History
release
fexofenadine 60 mg tablet 180 mg PO HS 07/11/23 12/25/23 07/10/23 History
lansoprazole 30 mg capsule,delayed 30 mg PO DAILY 07/11/23 12/25/23 07/11/23 History
release
montelukast 10 mg tablet 10 mg PO HS 07/11/23 12/25/23 07/10/23 History
(Singulair)
vibegron 75 mg tablet (Gemtesa) 75 mg PO DAILY 07/11/23 12/25/23 07/11/23 History
albuterol sulfate 2.5 mg/3 mL 2.5 mg inhalation TID 12/25/23 12/25/23 Unknown History
(0.083 %) solution for nebulization
budesonide 0.5 mg/2 mL suspension 0.5 mg inhalation BID 12/25/23 12/25/23 Unknown History
for nebulization
coenzyme Q10 100 mg capsule 100 mg PO BID 12/25/23 12/25/23 Unknown History
(CoQ-10)
solifenacin 10 mg tablet (Vesicare) 10 mg PO DAILY 12/25/23 12/25/23 Unknown History
Review of Systems
-
All other systems: Negative unless noted
Vitals / Labs / Diagnostic Testing
Vital Signs
Temp Pulse Resp BP Pulse Ox
98.1 F 110 36 159/124 97
12/25/23 08:00 12/25/23 08:07 12/25/23 08:07 12/25/23 08:00 12/25/23 08:07
Lab Data
12/24/23 23:46
12/25/23 03:28
Laboratory Results
12/24/23
23:45
PT 14.4
INR 1.11
APTT 31.8
Diagnostic Testing:
Physical Exam
-
HEENT: Normocephalic and Anicteric
Cardiovascular: S1/S2, Regular Rhythm, Murmur (2/6 systolic murmur) and Peripheral Edema (tr)
Respiratory: Wheeze (n), Rales (n) and Rhonchi (n)
GI: Soft, Non Distended and Non Tender
Neurology: Awake, Alert and No Motor Deficits (Generally weak)
Skin: Other (Mild pallor)
General: Comfortable
Assessment
-
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
cancer 2008 status post radiation now presents with acute onset right chest pain, labile blood pressure and fall. CT chest confirmed bilateral PE without RV strain. We are asked to comment on pulmonary process.
Acute bilateral PE
Pleurisy, shortness of breath, labile blood pressure
History of PE/DVT 2018
Unprovoked, on anticoagulation for 4 years
Discontinued per hematology after negative hypercoagulable workup
History of multiple falls in the past
Mild aortic stenosis/mitral regurgitation
Normal RV size/function per echo August 2023
Normal PA pressure
Mild tachycardia
Hyponatremia
Conditions present prior to admission
Recurrent bronchitis
History of asthma
Bronchiectasis, per CT imaging
History of recurrent sinusitis, rhinitis
Obstructive sleep apnea, total index 7.8, noncompliant with CPAP
Nocturnal hypoxia, not on home oxygen
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
Resolved per echo August 2023
History of prostate cancer radiation therapy 2008
DNR
Plan/recommendations
At this time, patient appears to be comfortable. There is no evidence of hypoxia. No evidence of hypotension
Patient has history of unprovoked PE/DVT, distant history of prostate cancer 2007
Would be considered high risk given his age
No evidence of RV strain per CT chest
Mildly elevated troponin, proBNP noted
Moving forward
Continue with empiric anticoagulation
Await echocardiogram
Patient will likely require lifelong anticoagulation
This may be difficult as patient has a history of recurrent falls
Hyponatremia noted
Patient on hydrochlorothiazide and also instructed to increase food intake due to labile blood pressure
Follow-up for now. Hydrochlorothiazide being held
Cardiology has been consulted
Patient with questionable atrial fibrillation per telemetry
On heparin therapy for PE
History of asthma and sleep apnea
No changes from pulmonary standpoint at this time
Continue budesonide, albuterol as needed
Patient well-known to myself as outpatient
We will follow
--- NOTE | 2023-12-25 08:52 | CON.CAR ---
Addendum entered and electronically signed by Timi Quiroz MD 12/25/23 11:08:
I saw and examined the patient.
The INSTRUCTIONAL TECHNOLOGY FACILITATOR's note was reviewed and I agree with the note.
Comment: 88 y/o male with mild aortic stenosis, LAFB, hypertension, asthma, resolved mild cardiomyopathy, hx DVT/PE previously on Eliquis who is here for evaluation. He is here since he has had SOB and BP issues since Friday.
- agree with gentle diuresis
- Eliquis for AC, likely life long
- short run of what appears to be pAF --> CHADSVAC at least 3, 4 if consider HF?
- Eliquis
- SIADH from other lung pathology contributing to hyponatremia?
Original Note:
Consultation
Consultation Request
Date/Time Consultation Requested: 12/25/23 0304
Date/Time Consultation Performed: 12/25/23 0900
Requesting Provider: Dr. Sherwood
Performing Provider: Gabi GREEN for Dr. Quiroz
Reason for Consultation: pulmonary embolism, concern for right heart strain
Medical History
-
Chief Complaint: SOB, elevated BP
History of Present Illness:
88 y/o male with mild aortic stenosis, LAFB, hypertension, asthma, resolved mild cardiomyopathy, hx DVT/PE previously on Eliquis who is here for evaluation. He is here since he has had SOB and BP issues since Friday. He checked his BP on Friday and
SBP was 88 mmHG. He called his PCP office and they told him to drink fluids, but he also held off on his BP meds. Then BP became high (SBP around 200 mmhg). Throughout this time he had more SOB. Chest CT reveals PE. He is on a heparin drip. He is on
O2 at the time of my assessment. He has increased RR and WOB to my assessment, but is in no acute distress. His NA+ on arrival was 119.
Past Medical History
Past Medical History: HTN and Other (DVT/PE, LAFB, asthma)
Social History
Tobacco: Non-Smoker
Living: Other (lives with girlfriend )
Allergies / Home Medications
Allergy/AdvReac Type Severity Reaction Status Date / Time
No Known Allergies Allergy Verified 01/06/23 11:50
�Medication �Instructions �Recorded �Confirmed �Type
fenofibrate nanocrystallized 48 mg 48 mg PO QPM High cholesterol 10/05/12 12/25/23 History
tablet
aeuvghbr-zgl-lsngj acid 0.4 1 ea PO DAILY Supplement 10/05/12 12/25/23 History
mg-lycopene 300 mcg-lutein 250 mcg
tablet (Centrum Silver)
losartan 50 mg tablet 100 mg PO DAILY Blood pressure 09/09/18 12/25/23 History
metoprolol succinate 50 mg 50 mg PO DAILY Heart 09/09/18 12/25/23 History
tablet,extended release 24 hr disease/condition
potassium gluconate 595 mg (99 mg) 0.5 tab PO HS Electrolyte Repletion 07/19/20 12/25/23 History
tablet
omega 8-pdz-lli-fish oil 900 2 ea PO BID Supplement 07/22/20 12/25/23 History
mg-1,400 mg capsule,delayed
release (Fish Oil)
hydrochlorothiazide 12.5 mg tablet 12.5 mg PO DAILY Blood pressure 04/08/21 12/25/23 History
aspirin 81 mg tablet,delayed 81 mg PO DAILY 07/11/23 12/25/23 History
release
fexofenadine 60 mg tablet 180 mg PO HS 07/11/23 12/25/23 History
lansoprazole 30 mg capsule,delayed 30 mg PO DAILY 07/11/23 12/25/23 History
release
montelukast 10 mg tablet 10 mg PO HS 07/11/23 12/25/23 History
(Singulair)
vibegron 75 mg tablet (Gemtesa) 75 mg PO DAILY 07/11/23 12/25/23 History
albuterol sulfate 2.5 mg/3 mL 2.5 mg inhalation TID 12/25/23 12/25/23 History
(0.083 %) solution for nebulization
budesonide 0.5 mg/2 mL suspension 0.5 mg inhalation BID 12/25/23 12/25/23 History
for nebulization
coenzyme Q10 100 mg capsule 100 mg PO BID 12/25/23 12/25/23 History
(CoQ-10)
solifenacin 10 mg tablet (Vesicare) 10 mg PO DAILY 12/25/23 12/25/23 History
Review of Systems
-
History Source: Patient
All other systems: Negative unless noted
Respiratory: Trouble Breathing
Physical Exam
Vital Signs
Temp Pulse Resp BP Pulse Ox
98.1 F 110 36 159/124 97
12/25/23 08:00 12/25/23 08:07 12/25/23 08:07 12/25/23 08:00 12/25/23 08:07
Lab Results
12/24/23 23:46
12/25/23 03:28
Troponin I 0.546 ng/ml H* 12/25/23 03:28
Obl-F-Tuwuslfwvwq Pept 8530 pg/ml 12/24/23 23:46
Physical Exam
General: Well Developed, Well Nourished and No Apparent Distress
HEENT: Normocephalic and Anicteric
Respiratory: Clear and Other (on O2 by NC)
Cardiac: Regular Rhythm and Murmur (II/ systolic)
Musculoskeletal: Edema (mild L sided, chronic per patient)
Skin: Warm and Dry
Neuro: AO x 3
Psych: Calm
Impression / Plan
-
Pulmonary embolism:
-this diagnosis is threat to life
-on heparin drip, which requires intensive monitoring
-echo pending to eval for right heart strain
-pulmonary consult
Abnormal troponin:
-acute non-ischemic myocardial injury in setting of PE
-checking echo as above
Hyponatremia:
-management per primary
-patient may be a bit volume overloaded as BNP 8350 and weight up a few lbs from baseline. He was told to drink extra and was off his HCTZ briefly. He thinks breathing worse with laying. Consider IV Lasix and monitor response. Will discuss with
team. Also checking echo.
HTN:
-continue meds and monitor
Arrhythmia:
-discussed with primary team and there was concern for AFIB on telemetry. I reviewed telemetry- mostly I see ST with PAC's, but there is a short run around 0539 that appears as AFIB. [id number] score is at least 3 for age and HTN. He will already
be on OAC for PE. Continue metoprolol. Monitor telemetry.
Aortic stenosis:
-mild on most recent echo, but being updated here
Bifascicular block:
-previously with SR with LAFB
-follow tele
Data Reviewed
-
EKG: Tracing Personally Visualized and interpreted (SR with PVC's, bifasicular block)
CT Scan: Report Reviewed by me (Acute pulmonary embolism involving the distal bilateral main pulmonary arteries with extension into the segmental arteries in all lobes.)
Medical Tests (Nuc Med, Echo etc): Report Reviewed by me (echo 08/15/23: Normal left ventricular size, wall thickness and systolic function. Estimated ejection fraction is 55-60%. Mild aortic stenosis. Mild mitral regurgitation.)
Labs: Labs Reviewed by me
--- NOTE | 2023-12-25 08:58 | W.PN.UPDATE ---
Update Note
Progress Note Update
Non-billable note (H&P entered 130 AM)
reports chest pain with inspiration, back pain, also mild SOB
Tele suggests possible New. Afib
remains on IV Heparin
remains on IV pain control
Assessment:
Acute bilateral PE
Non-Ischemic Myocardial Injury secondary to the above
- CT with bilateral main pulmonary artery, extending into segmental vessels. no heart strain.
- check Venous Dopplers
- trend trops to peak
- BNP elevated
- await Echo report
- continue supportive care/symptom control
- continue IV Heparin infusion - requires intensive monitoring. Lifelong anticoagulation recommended.
- Cardiology and Pulmonary consulted
Acute Hyponatremia
- Likely secondary to increased fluid intake over the past 3 days + HCTZ use + increased ADH state secondary to pain, dyspnea, pulmonary process.
- No clear symptoms at this time attributable to Na level.
- Fluid restrict and follow for improvement in Na.
- Stop HCTZ.
- Consider Lasix dosing pending Echo results; patient examines slightly volume overloaded
- await urine studies. Sosm was 253
- Consider Nephrology evaluation if hyponatremia does not readily correct with fluid restriction.
possible New onset Afib
- per tele strips; will review with Cards
- continue BB for rate control
- already on IV Heparin
Benign Hypertension
- Labile BP over the past several days - in part due to med dosing errors, volume shifts, pain, etc.
- BP currently elevated.
- Follow for changes with PE treatment, pain control, etc.
- Continue metoprolol and losartan with holding parameters.
- Hold HCTZ as noted above.
Moderate Persistent Asthma
- No active wheezing appreciated on exam, SpO2 is acceptable on room air.
- Continue budesonide. Albuterol PRN.
- Follow for any changes / new symptoms.
BPH/OAB
History of Prostate Cancer s/p XRT
- Hold OAB medications acutely.
- Bladder scan protocols.
DVT Prophylaxis: IV heparin
Code Status: DNR/DNI
[2023-12-25 09:15] LABS: PT 16.3 Sec (11.4-14.6)
[2023-12-25 09:16] LABS: Troponin I 0.437 ng/ml
[2023-12-25 09:51] LABS: APTT 181.4 Sec (23.4-35.0)
[2023-12-25 12:05] LABS: Osmolality Urine 411 mOsm/kg (300-900)
[2023-12-25 12:11] LABS: Urine Sodium 31 mmol/L (30-90)
[2023-12-25] MEDS: LASIX 20 MG IV (12:28)
--- NOTE | 2023-12-25 16:28 | CM ---
Patient with Dx Acute bilateral PE, possible New onset Afib. O2 2L. Receiving Heparin gtt.
Met with patient who resides alone in at [facility] apartments with elevator access, which is subsidized [employer] housing.
The patient has been independent in ADLs and ambulation using his SPC.
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
No housing/food/utility/transport insecurity.
DME - [facility]
VN - prior [facility]
SNF - none
PCP - Amador Westfall
Pharmacy - [facility]
The patient has 2 daughters who live nearby. He says daughter Shauna may be his POA.
Offered VN for nurse check after d/c and he would like to have [facility] again.
Referral to [facility].
Plan home with [facility].
[2023-12-25 17:11] LABS: APTT 172.8 Sec (23.4-35.0)
[2023-12-25] MEDS: TIGAN 200 MG IM (17:19)
--- NOTE | 2023-12-25 19:14 | PTCARENOTE ---
AAO, rings appropriately. C/o pain Right thorax area / at times - Morphine administered x2 this shift with good relief- however pt has also vomited x4 this shift. Encourage small sips liquids. D/w - Romana ordered and given with some relief.
Tele shows AF- rates 100s - bursts up to 140s when he gets upset with family - resolves quickly when disengaged. Condom cath on - good urine output s/p IV Lasix today.
[2023-12-25] MEDS: TYLENOL 650 MG PO (19:19)
[2023-12-25] MEDS: SINGULAIR 10 MG PO (21:10)
[2023-12-25] MEDS: COMPAZINE 5 MG IV (21:10)
[2023-12-25] MEDS: LOPRESSOR 5 MG IV (21:14)
--- NOTE | 2023-12-25 21:30 | PTCARENOTE ---
Received pt from day shift, aaox3, resting in bed. At 19:37 pt had a 7 beat run of Vtach. HR in the 90s and then jumping to the 140s @ x's. He is afib on the monitor, tachy w/ PVC's. BP 128/77. Reached out to [facility] and obtained Rx for PRN IV Lopressor
(see MAR). Pt's heart rate now in the 80s, resting in bed with call lorenzana in reach.
[2023-12-26] VITALS (14 sets, daily range): BP systolic 95–148; BP diastolic 64–90; PULSE 85–86; O2SAT 95–96; BMI 24.6
[2023-12-26] MEDS: HEPARIN 25000 UNITS/250 ML IV (00:56)
[2023-12-26 00:57] LABS: APTT 86.8 Sec (23.4-35.0)
[2023-12-26 07:18] LABS: APTT 75.7 Sec (23.4-35.0)
[2023-12-26] MEDS: VENTOLIN NEBULES 2.5 MG INH ×3 (07:18→20:02)
[2023-12-26] MEDS: PULMICORT 0.5 MG INH ×2 (07:19→20:02)
[2023-12-26 07:50] LABS: Blood Urea Nitrogen 22 mg/dl (9-20); Calcium 8.9 mg/dl (8.4-10.2); Carbon Dioxide 19 mmol/L (22-30); Chloride 91 mmol/L (98-107); Estimated Creatinine Clearance 38 ml/min; Glucose 96 mg/dl (70-99); Potassium 4.5 mmol/L (3.5-5.1); Sodium 121 mmol/L (135-145); eGFR 58.17
[2023-12-26 08:17] LABS: Hematocrit 35.4 % (39.0-52.0); Hemoglobin 13.1 g/dL (13.0-18.0); Mean Corpuscular Hgb 29.6 pg (27.0-31.0); Mean Corpuscular Volume 80.1 fL (80.0-94.0); Mean Platelet Volume 9.1 fL (7.4-10.4); Platelet Count 206 10^3/uL (130-400); Red Blood Cell Count 4.42 10^6/uL (4.70-6.10); Red Cell Dist. Width 12.8 % (11.5-14.5); White Blood Cell Count 18.7 10^3/uL (4.8-10.8)
--- NOTE | 2023-12-26 08:23 | W.PN.PUL3 ---
Today's Communication / Plan
-
Continue anticoagulation, transition to oral
Increase activity as tolerates
Screen for home oxygen
Follow-up as outpatient with pulmonary. Information left in chart
Assessment
-
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
cancer 2008 status post radiation now presents with acute onset right chest pain, labile blood pressure and fall. CT chest confirmed bilateral PE without RV strain. We are asked to comment on pulmonary process.
Acute bilateral PE
Pleurisy, shortness of breath, labile blood pressure
History of PE/DVT 2018
Unprovoked, on anticoagulation for 4 years
Discontinued per hematology after negative hypercoagulable workup
History of multiple falls in the past
Mild aortic stenosis/mitral regurgitation
Normal RV size/function per echo August 2023
Normal PA pressure
Mild tachycardia
Hyponatremia
Conditions present prior to admission
Recurrent bronchitis
History of asthma
Bronchiectasis, per CT imaging
History of recurrent sinusitis, rhinitis
Obstructive sleep apnea, total index 7.8, noncompliant with CPAP
Nocturnal hypoxia, not on home oxygen
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
Resolved per echo August 2023
History of prostate cancer radiation therapy 2008
DNR
Plan/recommendations
At this time, patient appears to be comfortable. There is no evidence of hypoxia. No evidence of hypotension
Patient has history of unprovoked PE/DVT, distant history of prostate cancer 2007
Left lower extremity nonocclusive DVT noted
Echocardiogram with dilated RV, hypokinesis, PA pressure 57. This is new
MR also is moderately, worse than before
No evidence of RV strain per CT chest
Mildly elevated troponin, proBNP noted
Moving forward
Continue with empiric anticoagulation
Patient will likely require lifelong anticoagulation
This may be difficult as patient has a history of recurrent falls
RV changes noted per echo. Consider repeat echo in 3 to 6 months
Hyponatremia noted
Patient on hydrochlorothiazide and also instructed to increase food intake due to labile blood pressure
Follow-up for now. Hydrochlorothiazide being held
Cardiology following
Patient with questionable atrial fibrillation per telemetry
On heparin therapy for PE
Eventual transition to Eliquis
History of asthma and sleep apnea
No changes from pulmonary standpoint at this time
Continue budesonide, albuterol as needed
Patient well-known to myself as outpatient
Pulmonary follow-up in 4 to 6 weeks
Subjective Data
-
Date of Service:
Date of Service: December 26, 2023
Subjective:
Patient is feeling well. He does admit to shortness of breath. Denies chest pain which is since resolved. Has mild cough. Denies lightheadedness. He does feel short of breath while eating.
Objective Data
Data Reviewed
Vital Signs / I&O / Oxygen:
Vital Signs
Temp Pulse Resp BP Pulse Ox
97.8 F 83 18 95/71 98
12/26/23 07:00 12/26/23 07:19 12/26/23 07:19 12/26/23 06:00 12/26/23 07:19
Intake and Output
12/25/23 12/26/23 12/27/23
06:59 06:59 06:59
Intake Total 240 / 240 420 / 420 60 / 60
Output Total 550 / 550 200 / 200
Balance 240 / 240 -130 / -130 -140 / -140
SaO2 98
Nasal Cannula flow liters per 2
minute
Physical Exam
General: Comfortable
HEENT: Normocephalic and Anicteric
Cardiovascular: S1-S2, Regular Rhythm and Murmur (2/6 systolic murmur)
Respiratory: Wheeze (n), Crackles (n), Rhonchi (n) and Non-Labored Respirations
GI: Soft, Non Distended and Non Tender
Neurology: Awake, Alert and No Motor Deficits (Generally weak)
Skin: Cyanosis (n), Jaundice (n) and Rash (n)
Labs/Micro/Reports
Lab Data
12/26/23 06:34
12/26/23 06:34
Laboratory Results
12/25/23 12/25/23 12/26/23
08:29 16:37 00:35
PT 16.3 H
INR 1.30
APTT 181.4 H* 172.8 H* 86.8 H
12/26/23
06:34
PT
INR
APTT 75.7 H
--- NOTE | 2023-12-26 08:46 | W.PN.CD ---
Today's Communication / Plan
-
-Currently on a heparin drip; transition to oral anticoagulation as per primary Hospitalist team.
-Echocardiogram yesterday did reveal normal LVEF, but RV enlargement with decreased function (Graves sign).
-Lifelong anticoagulation indicated.
-Continue Toprol-XL 25 mg daily.
-Cardiology will remain available on an as needed basis; can follow-up as outpatient.
Impression / Plan
-
Pulmonary embolism:
-Bilateral; had previous DVT a few years ago.
-Currently on a heparin drip; transition to oral anticoagulation as per primary Hospitalist team.
-Echocardiogram yesterday did reveal normal LVEF, but RV enlargement with decreased function (Graves sign).
-Pulmonary following.
New onset PAF:
-Lifelong anticoagulation indicated.
-Continue Toprol-XL 25 mg daily.
Abnormal troponin:
-Likely acute non-ischemic myocardial injury in setting of PE.
Hyponatremia:
-Management as per primary team.
HTN:
-Stable/controlled.
Aortic stenosis:
-Stable on echocardiogram yesterday.
Bifascicular block:
-previously with SR with LAFB
-stable
Physical Exam
Vital Signs/Labs
Vital Signs
Temp Pulse Resp BP Pulse Ox
97.8 F 83 18 95/71 98
12/26/23 07:00 12/26/23 07:19 12/26/23 07:19 12/26/23 06:00 12/26/23 07:19
12/25/23 12/26/23 12/27/23
06:59 06:59 06:59
Actual Weight 69.8 kg 69 kg
12/26/23 06:34
12/26/23 06:34
PT 16.3 Sec (11.4-14.6) H 12/25/23 08:29
INR 1.30 12/25/23 08:29
APTT 75.7 Sec (23.4-35.0) H 12/26/23 06:34
Triglycerides 46 mg/dl (10-149) 12/25/23 03:28
LDL Cholesterol, Calc 67 mg/dl 12/25/23 03:28
VLDL Cholesterol, Calc 9 mg/dl (0-30) 12/25/23 03:28
HDL Cholesterol 47 mg/dl 12/25/23 03:28
12/24/23
23:46
Irc-O-Frffxikndhn Pept 8530
LAB Results
12/24/23 12/25/23 12/25/23
23:46 03:28 08:29
Troponin I 0.554 H* 0.546 H* 0.437 H*
12/25/23
16:37
Troponin I 0.350 H*
Physical Exam
Constitutional: No acute distress and Comfortable
EENT: Anicteric
Cardiovascular: Rhythm & rate is regular, Pedal edema is absent, Systolic murmur present (05/17) and S1S2 is normal
Respiratory: Respiratory effort normal, Wheeze Present and Rhonchi Present (mild)
GI: Soft
Neuro/Psych: AO x 3
Other: Skin (Warm, dry, intact)
Data Reviewed
-
Date of Service: December 26, 2023
EKG: Tracing Personally Visualized and interpreted (Telemetry: Sinus rhythm, PAF)
Echo: Tracing Personally Visualized and interpreted (Normal LVEF, dilated RV with decreased right ventricular function (Graves sign).)
Medical Tests (PFT, Pathology etc): Discussed with Nurse
Labs: Labs Reviewed by me
[2023-12-26] MEDS: PROTONIX 40 MG PO (09:01)
[2023-12-26] MEDS: TOPROL XL 25 MG PO (09:01)
[2023-12-26] MEDS: COZAAR PO (09:02)
[2023-12-26] MEDS: ASPIR LOW (ENTERIC COATED) 81 MG PO (09:02)
[2023-12-26] MEDS: TOPROL XL PO (09:23)
[2023-12-26 10:00] LABS: Urine Albumin Negative (Neg - Trace); Urine Bilirubin Negative (Negative); Urine Character Clear (Clear); Urine Color Yellow; Urine Glucose Negative (Negative); Urine Ketone Negative (Negative); Urine Leukocyte Negative (Negative); Urine Nitrite Negative (Negative); Urine Occult Blood Negative (Negative); Urine Specific Gravity 1.015 (<1.030); Urine Urobilinogen Negative (Neg - 1+)
--- NOTE | 2023-12-26 12:35 | VNURNOTE ---
Home Health Liaison spoke with patient over the phone to discuss [facility] nurse/therapy, visits, schedule and homebound status. Patient is agreeable and understands that visits at home will be 1-2 x per week to assess and teach medical management.
Patient is aware that [facility] will contact them for start of care within a few days after discharge from .
[facility] referral accepted in [facility].
--- NOTE | 2023-12-26 14:21 | W.PN.HOSP.TC ---
Today's Communication/Plan
-
transition to Eliquis
weaned off O2; home O2 assess
IV Lasix x 1; follow BMP
continue pain control
Assessment / Plan
Assessment / Plan
Assessment:
Acute bilateral PE
Non-Ischemic Myocardial Injury secondary to the above
- CT with bilateral main pulmonary artery, extending into segmental vessels. no heart strain.
- Dopplers: L nonocclusive clot involving the left femoral vein, popliteal vein, peroneal vein, and posterior tibial vein. There is also nonocclusive clot within the visualized proximal profunda femoris vein
- trop peaked at .554
- BNP elevated
- Echo: normal LVEF, but RV enlargement with decreased function (Graves sign). repeat in 3-6 months
- continue supportive care/symptom control
- transition to Eliquis, starting with loading dose. Lifelong anticoagulation recommended.
- Cardiology and Pulmonary consulting
Acute Hyponatremia
- Likely secondary to increased fluid intake over the past 3 days + HCTZ use + increased ADH state secondary to pain, dyspnea, pulmonary process.
- No clear symptoms at this time attributable to Na level.
- Fluid restrict
- Stop HCTZ.
- continue daily prn IV Lasix
- follow Na, most recently 121
- Consider Nephrology evaluation if Samsca indicated
New onset parox Afib
- per tele strips; will review with Cards
- continue BB for rate control
- transition to Eliquis
Benign Hypertension
- Labile BP over the past several days - in part due to med dosing errors, volume shifts, pain, etc.
- BP currently elevated.
- Follow for changes with PE treatment, pain control, etc.
- Continue metoprolol
- Hold HCTZ/Losartan
Moderate Persistent Asthma
- No active wheezing appreciated on exam, SpO2 is acceptable on room air.
- Continue budesonide. Albuterol PRN.
- Follow for any changes / new symptoms.
BPH/OAB
History of Prostate Cancer s/p XRT
- Hold OAB medications acutely.
- Bladder scan protocols.
Vomiting likely from morphine side effect
- prn anti-emetics
DVT Prophylaxis: Eliquis
Code Status: DNR/DNI
Anticipated Discharge: > 48 hours
Subjective/Interval History
-
Date of Service: December 26, 2023
pain slightly improving, worse with activity
no further vomiting today
Objective Data
-
Labs:
Laboratory Results
12/26/23
06:34
WBC 18.7 H
Hgb 13.1
Hct 35.4 L
Plt Count 206 D
APTT 75.7 H
Sodium 121 L
Potassium 4.5
Chloride 91 L
Carbon Dioxide 19 L
BUN 22 H
Creatinine 1.2
Glucose 96
Calcium 8.9
Vital Signs:
Vital Signs
Temp Pulse Resp BP Pulse Ox
97.9 F 79 20 108/87 95
12/26/23 11:00 12/26/23 10:00 12/26/23 10:00 12/26/23 10:00 12/26/23 11:20
I&O
12/25/23 12/26/23 12/27/23
06:59 06:59 06:59
Intake Total 240 / 240 420 / 420 60 / 60
Output Total 550 / 550 200 / 200
Balance 240 / 240 -130 / -130 -140 / -140
Physical Exam
-
General: No Apparent Distress
HEENT: Normocephalic and Atraumatic
Respiratory: Negative Wheezes
Cardiac: Regular Rhythm and S1/S2
GI: Soft
Genito-urinary: No Costovertebral Tender
Musculoskeletal: Edema, Right Lower Extrem and Edema, Left Lower Extrem
Neuro: AO x 3
Hematologic / Lymphatic: No Lymphadenopathy
Psych: Calm
Data Reviewed
-
Total Time Spent with Patient (in minutes): 45
Labs: Labs Reviewed by me
[2023-12-26] MEDS: LASIX 20 MG IV (15:14)
--- NOTE | 2023-12-26 15:30 | CM ---
Patient with Dx Acute bilateral PE, possible New onset Afib. Room air. Receiving Heparin gtt. PT & OT Evals pending.
Plan follow up after seen by PT/OT.
Plan home with [facility].
[2023-12-26] MEDS: TRICOR 48 MG PO (18:01)
--- NOTE | 2023-12-26 18:22 | PTCARENOTE ---
OOB all day. Weaned off O2- maintaining 94-98% on RAIR. Remains very dyspneic at rest as well as exertion- does not effect sao2. Audible wheeze at times- RT gives nebs routinely. Pain minimal right upper thorax- cramping - did not require med
intervention. No further nausea/ vomiting today. Appetite is very poor/ d/t shortness of breath. Condom cath replaced today. Urine specimen sent. Anticoagulant education provided to pt and daughter. A fib packet given as well.
[2023-12-26] MEDS: SINGULAIR 10 MG PO (20:00)
[2023-12-26] MEDS: ELIQUIS 10 MG PO (20:00)
[2023-12-26] MEDS: CLARITIN 10 MG PO (20:02)
--- NOTE | 2023-12-26 21:16 | PTCARENOTE ---
Pt received sitting in chair stating his condom cath came off. Pt grossly incontinent. Assisted back to bed with 1 assist. AAOx3. New condom cath placed after pericare provided. Heparin gtt d/c'd after Eliquis given as ordered. VSS. Afebrile. SR/ST
on CM. POX 95% on RA. Tachypneic, ONI, GUERRIER, shallow, orthopneic. Left arm with red/purple purple bruise to inner elbow. Rest of assessment as documented. Bed alarm on and working. Call lorenzana within reach. Will continue to monitor.
--- NOTE | 2023-12-26 22:05 | PTCARENOTE ---
Pt requested oxygen for the night. RA POX 89%. Feels like he's 'huffing and puffing.' Placed on 2L NC POX 98%. RR's upper 20's. Turned self to left side. Condom cath fell off. Attends remain on and urinal at bedside. Call lorenzana remains within reach.
Will continue to monitor.
[2023-12-27] VITALS (11 sets, daily range): BP systolic 94–131; BP diastolic 62–84; BMI 24.0
[2023-12-27 04:40] LABS: Hematocrit 34.5 % (39.0-52.0); Hemoglobin 12.9 g/dL (13.0-18.0); Mean Corp Hgb Conc. 37.4 g/dL (33.0-37.0); Mean Corpuscular Hgb 30.3 pg (27.0-31.0); Mean Platelet Volume 8.9 fL (7.4-10.4); Platelet Count 272 10^3/uL (130-400); Red Blood Cell Count 4.26 10^6/uL (4.70-6.10); Red Cell Dist. Width 12.6 % (11.5-14.5); White Blood Cell Count 12.8 10^3/uL (4.8-10.8)
[2023-12-27 04:56] LABS: Blood Urea Nitrogen 23 mg/dl (9-20); Carbon Dioxide 22 mmol/L (22-30); Chloride 92 mmol/L (98-107); Estimated Creatinine Clearance 42 ml/min; Glucose 85 mg/dl (70-99); Potassium 3.7 mmol/L (3.5-5.1); Sodium 124 mmol/L (135-145); eGFR > 60.00
[2023-12-27] MEDS: PULMICORT 0.5 MG INH ×2 (07:57→17:48)
[2023-12-27] MEDS: VENTOLIN NEBULES 2.5 MG INH ×2 (07:57→17:48)
[2023-12-27] MEDS: PROTONIX 40 MG PO (08:17)
[2023-12-27] MEDS: ASPIR LOW (ENTERIC COATED) 81 MG PO (08:17)
[2023-12-27] MEDS: ELIQUIS 10 MG PO ×2 (08:17→20:41)
[2023-12-27] MEDS: DETROL LA 4 MG PO (08:17)
[2023-12-27] MEDS: TOPROL XL 25 MG PO (08:17)
--- NOTE | 2023-12-27 09:48 | W.PN.PUL3 ---
Today's Communication / Plan
-
SOB likely from deconditioning, PT eval for SNF eval
Home o2 eval ordered by team
Continue on Eliquis, likely lifelong
Can transfer to tele
Stable for discharge
Assessment
-
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
cancer 2008 status post radiation now presents with acute onset right chest pain, labile blood pressure and fall. CT chest confirmed bilateral PE without RV strain. We are asked to comment on pulmonary process.
Acute bilateral PE
Pleurisy, shortness of breath, labile blood pressure
History of PE/DVT 2018
Unprovoked, on anticoagulation for 4 years
Discontinued per hematology after negative hypercoagulable workup
History of multiple falls in the past
Mild aortic stenosis/mitral regurgitation
Normal RV size/function per echo August 2023
Normal PA pressure
Mild tachycardia
Hyponatremia
SOB
Conditions present prior to admission
Recurrent bronchitis
History of asthma
Bronchiectasis, per CT imaging
History of recurrent sinusitis, rhinitis
Obstructive sleep apnea, total index 7.8, noncompliant with CPAP
Nocturnal hypoxia, not on home oxygen
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
Resolved per echo August 2023
History of prostate cancer radiation therapy 2008
DNR
Plan/recommendations
At this time, patient appears to be comfortable. There is no evidence of hypoxia, remains on 1L NC but likely can be stopped
SOB continued, but this may be deconditioning
PT/OT eval for SNF placement
Home O2 eval ordered
Patient has history of unprovoked PE/DVT, distant history of prostate cancer 2007
Left lower extremity nonocclusive DVT noted
Echocardiogram with dilated RV, hypokinesis, PA pressure 57. This is new
MR also is moderately, worse than before
No evidence of RV strain per CT chest
Mildly elevated troponin, proBNP noted
Moving forward
Continue with empiric anticoagulation
Patient will likely require lifelong anticoagulation
This may be difficult as patient has a history of recurrent falls
RV changes noted per echo. Consider repeat echo in 3 to 6 months
Hyponatremia noted
Patient on hydrochlorothiazide and also instructed to increase food intake due to labile blood pressure
Follow-up for now. Hydrochlorothiazide being held
Cardiology following
Patient with questionable atrial fibrillation per telemetry
On heparin therapy for PE
Eventual transition to Eliquis
History of asthma and sleep apnea
No changes from pulmonary standpoint at this time
Continue budesonide, albuterol as needed
Patient well-known to myself as outpatient
Pulmonary follow-up in 4 to 6 weeks
Subjective Data
-
Date of Service:
Date of Service: December 27, 2023
Chief Complaint: Pulmonary Follow Up
Subjective:
Doing well, no issues
Still feels SOB
On 1L NC
Objective Data
Data Reviewed
Vital Signs / I&O / Oxygen:
Vital Signs
Temp Pulse Resp BP Pulse Ox
97.7 F 113 18 117/83 99
12/27/23 07:01 12/27/23 08:17 12/27/23 07:59 12/27/23 08:17 12/27/23 07:59
Intake and Output
12/26/23 12/27/23 12/28/23
06:59 06:59 06:59
Intake Total 420 / 420 945 / 945
Output Total 550 / 550 800 / 800
Balance -130 / -130 145 / 145
SaO2 99
Nasal Cannula flow liters per 2
minute
Physical Exam
General: Comfortable and Other (NAD, asleep in bed)
HEENT: Normocephalic, Anicteric and Moist Mucous Membranes
Cardiovascular: S1-S2, Regular Rhythm and Murmur (2/6 systolic murmur)
Respiratory: Clear (overall decreased), Wheeze (n), Crackles (n), Rhonchi (n) and Non-Labored Respirations
GI: Soft, Non Distended and Non Tender
Neurology: Awake, Alert, Oriented, AO x 3 and No Motor Deficits (Generally weak)
Skin: Cyanosis (n), Jaundice (n) and Rash (n)
Labs/Micro/Reports
Lab Data
12/27/23 04:20
12/27/23 04:20
--- NOTE | 2023-12-27 12:24 | W.PN.HOSP.TC ---
Today's Communication/Plan
-
continue Eliquis
IV Lasix prn
Assessment / Plan
Assessment / Plan
Assessment:
Acute bilateral PE
Non-Ischemic Myocardial Injury secondary to the above
- CT with bilateral main pulmonary artery, extending into segmental vessels. no heart strain.
- Dopplers: L nonocclusive clot involving the left femoral vein, popliteal vein, peroneal vein, and posterior tibial vein. There is also nonocclusive clot within the visualized proximal profunda femoris vein
- trop peaked at .554
- BNP elevated
- Echo: normal LVEF, but RV enlargement with decreased function (Graves sign). repeat in 3-6 months
- continue supportive care/symptom control
- continue Eliquis, starting with loading dose. Lifelong anticoagulation recommended.
- Cardiology and Pulmonary consulting
Acute Hyponatremia
- Likely secondary to increased fluid intake over the past 3 days + HCTZ use + increased ADH state secondary to pain, dyspnea, pulmonary process.
- No clear symptoms at this time attributable to Na level.
- Fluid restrict
- Stop HCTZ.
- continue daily prn IV Lasix
- follow Na, most recently 124
- may consider low dose Samsca in 24 hours
New onset parox A.fib
- continue BB for rate control
- continue Eliquis
Benign Hypertension
- Labile BP over the past several days - in part due to med dosing errors, volume shifts, pain, etc.
- BP currently elevated.
- Follow for changes with PE treatment, pain control, etc.
- Continue metoprolol
- Hold HCTZ/Losartan
Moderate Persistent Asthma
- No active wheezing appreciated on exam, SpO2 is acceptable on room air.
- Continue budesonide. Albuterol PRN.
- Follow for any changes / new symptoms.
BPH/OAB
History of Prostate Cancer s/p XRT
- Hold OAB medications acutely.
- Bladder scan protocols.
Vomiting likely from morphine side effect
- prn anti-emetics
DVT Prophylaxis: Eliquis
Code Status: DNR/DNI
Anticipated Discharge: > 48 hours
Subjective/Interval History
-
Date of Service: December 27, 2023
no new complaints
weight improving, Na improving
Objective Data
-
Labs:
Laboratory Results
12/27/23 12/27/23
04:20 18:00
WBC 12.8 H
Hgb 12.9 L
Hct 34.5 L
Plt Count 272 D
Sodium 124 L Pending
Potassium 3.7 Pending
Chloride 92 L Pending
Carbon Dioxide 22 Pending
BUN 23 H Pending
Creatinine 1.1 Pending
Glucose 85 Pending
Calcium 9.0 Pending
Vital Signs:
Vital Signs
Temp Pulse Resp BP Pulse Ox
97.7 F 86 18 99/64 95
12/27/23 11:20 12/27/23 10:00 12/27/23 10:00 12/27/23 10:00 12/27/23 10:32
I&O
12/26/23 12/27/23 12/28/23
06:59 06:59 06:59
Intake Total 420 / 420 945 / 945 120 / 120
Output Total 550 / 550 800 / 800 250 / 250
Balance -130 / -130 145 / 145 -130 / -130
Physical Exam
-
General: No Apparent Distress
HEENT: Normocephalic
Respiratory: Negative Wheezes
Cardiac: Regular Rhythm and S1/S2
GI: Soft
Genito-urinary: No Costovertebral Tender
Neuro: AO x 3
Psych: Calm
Data Reviewed
-
Total Time Spent with Patient (in minutes): 42
Labs: Labs Reviewed by me
[2023-12-27] MEDS: LASIX 20 MG IV (12:50)
--- NOTE | 2023-12-27 13:41 | CHAP ---
Mr. Álvarez was happy to share his story and he welcomed prayer. Has a good outlook on life and a strong spirit. Emotional and spiritual support provided.
--- NOTE | 2023-12-27 16:03 | CM ---
Chart reviewed.
Eliquis $47 per month.
Watch for home oxygen needs continues on 1 liter.
Nephrology consulted.
Plan: home with [facility] when stable.
[2023-12-27] MEDS: TRICOR 48 MG PO (18:13)
[2023-12-27 19:47] LABS: Blood Urea Nitrogen 23 mg/dl (9-20); Calcium 9.1 mg/dl (8.4-10.2); Carbon Dioxide 26 mmol/L (22-30); Chloride 93 mmol/L (98-107); Estimated Creatinine Clearance 38 ml/min; Glucose 118 mg/dl (70-99); Potassium 3.6 mmol/L (3.5-5.1); Sodium 126 mmol/L (135-145); eGFR 58.17
[2023-12-27] MEDS: SINGULAIR 10 MG PO ×2 (20:41→20:42)
[2023-12-27] MEDS: CLARITIN 10 MG PO (20:42)
[2023-12-28] VITALS (10 sets, daily range): BP systolic 99–142; BP diastolic 59–83; PULSE 95; O2SAT 95; BMI 23.7; BMI 24.0
[2023-12-28 04:34] LABS: Hematocrit 32.8 % (39.0-52.0); Hemoglobin 12.2 g/dL (13.0-18.0); Mean Corp Hgb Conc. 37.2 g/dL (33.0-37.0); Mean Corpuscular Hgb 29.8 pg (27.0-31.0); Mean Corpuscular Volume 80.2 fL (80.0-94.0); Mean Platelet Volume 8.7 fL (7.4-10.4); Platelet Count 275 10^3/uL (130-400); Red Blood Cell Count 4.09 10^6/uL (4.70-6.10); Red Cell Dist. Width 12.9 % (11.5-14.5); White Blood Cell Count 11.6 10^3/uL (4.8-10.8)
[2023-12-28 05:06] LABS: Blood Urea Nitrogen 23 mg/dl (9-20); Calcium 8.9 mg/dl (8.4-10.2); Carbon Dioxide 24 mmol/L (22-30); Chloride 97 mmol/L (98-107); Estimated Creatinine Clearance 42 ml/min; Glucose 107 mg/dl (70-99); Potassium 3.7 mmol/L (3.5-5.1); Sodium 128 mmol/L (135-145); eGFR > 60.00
[2023-12-28 05:37] LABS: Cortisol, Random 8.5 ug/dl; TSH Reflex To Free T4 3.09 uIU/ml (0.47-4.68)
[2023-12-28] MEDS: PULMICORT 0.5 MG INH ×2 (07:38→19:41)
--- NOTE | 2023-12-28 07:38 | W.PN.HOSP.TC ---
Today's Communication/Plan
-
repeat IV Lasix; PO Lasix tomorrow (stop HCTZ at discharge)
follow daily BMP
home O2 testing
DC planning
Assessment / Plan
Assessment / Plan
Assessment:
Acute bilateral PE
Non-Ischemic Myocardial Injury secondary to the above
- CT with bilateral main pulmonary artery, extending into segmental vessels. no heart strain.
- Dopplers: L nonocclusive clot involving the left femoral vein, popliteal vein, peroneal vein, and posterior tibial vein. There is also nonocclusive clot within the visualized proximal profunda femoris vein
- trop peaked at .554
- BNP elevated
- Echo: normal LVEF, but RV enlargement with decreased function (Graves sign). repeat in 3-6 months
- continue supportive care/symptom control
- continue Eliquis, starting with loading dose. Lifelong anticoagulation recommended.
- Cardiology and Pulmonary signed off
Acute Hyponatremia
- Likely secondary to increased fluid intake over the past 3 days + HCTZ use + increased ADH state secondary to pain, dyspnea, pulmonary process.
- No clear symptoms at this time attributable to Na level.
- Fluid restrict
- continue daily prn IV Lasix today; look to transition to Lasix 20mg daily Friday and stay off HCTZ permanently
- follow Na, most recently 128
New onset parox A.fib
- continue BB for rate control
- continue Eliquis
Benign Hypertension
- Labile BP over the past several days - in part due to med dosing errors, volume shifts, pain, etc.
- Follow for changes with PE treatment, pain control, etc.
- Continue metoprolol
- Hold HCTZ
- hold Losartan while on IV diuretic for Hyponatremia
Moderate Persistent Asthma
- No active wheezing appreciated on exam, SpO2 is acceptable on room air.
- Continue budesonide. Albuterol PRN.
- Follow for any changes/new symptoms.
BPH/OAB
History of Prostate Cancer s/p XRT
- Hold OAB medications acutely.
- Bladder scan protocols.
Vomiting likely from morphine side effect
- prn anti-emetics
DVT Prophylaxis: Eliquis
Code Status: DNR/DNI
Anticipated Discharge: 24 - 48 hours
Subjective/Interval History
-
Date of Service: December 28, 2023
denies any new complaints at present
on 1L NC
Objective Data
-
Labs:
Laboratory Results
12/27/23 12/28/23
19:25 04:24
WBC 11.6 H
Hgb 12.2 L
Hct 32.8 L
Plt Count 275
Sodium 126 L 128 L
Potassium 3.6 3.7
Chloride 93 L 97 L
Carbon Dioxide 26 24
BUN 23 H 23 H
Creatinine 1.2 1.1
Glucose 118 H 107 H
Calcium 9.1 8.9
Vital Signs:
Vital Signs
Temp Pulse Resp BP Pulse Ox
97.9 F 88 18 100/69 94
12/28/23 03:30 12/28/23 06:00 12/28/23 06:00 12/28/23 06:00 12/28/23 06:00
I&O
12/27/23 12/28/23 12/29/23
06:59 06:59 06:59
Intake Total 945 / 945 360 / 360
Output Total 800 / 800 1075 / 1075
Balance 145 / 145 -715 / -715
Physical Exam
-
General: No Apparent Distress
HEENT: Normocephalic and Atraumatic
Respiratory: Negative Wheezes
Cardiac: Regular Rhythm and S1/S2
GI: Soft
Neuro: AO x 3
Hematologic / Lymphatic: No Lymphadenopathy
Psych: Calm
Data Reviewed
-
Total Time Spent with Patient (in minutes): 42
Labs: Labs Reviewed by me
[2023-12-28] MEDS: ASPIR LOW (ENTERIC COATED) 81 MG PO (08:11)
[2023-12-28] MEDS: PROTONIX 40 MG PO (08:11)
[2023-12-28] MEDS: ELIQUIS 10 MG PO ×2 (08:12→20:12)
[2023-12-28] MEDS: DETROL LA 4 MG PO (08:12)
[2023-12-28] MEDS: TOPROL XL 25 MG PO (08:12)
[2023-12-28] MEDS: LASIX 20 MG IV (08:13)
--- NOTE | 2023-12-28 10:00 | W.PN.PUL3 ---
Today's Communication / Plan
-
Stable on RA, off oxygen
SOB ongoing, but may benefit from SNF placement
Discharge planning per team
Transfer out of IMU
Assessment
-
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
cancer 2008 status post radiation now presents with acute onset right chest pain, labile blood pressure and fall. CT chest confirmed bilateral PE without RV strain. We are asked to comment on pulmonary process.
Acute bilateral PE
Pleurisy, shortness of breath, labile blood pressure
History of PE/DVT 2018
Unprovoked, on anticoagulation for 4 years
Discontinued per hematology after negative hypercoagulable workup
History of multiple falls in the past
Mild aortic stenosis/mitral regurgitation
Normal RV size/function per echo August 2023
Normal PA pressure
Mild tachycardia
Hyponatremia
SOB
Conditions present prior to admission
Recurrent bronchitis
History of asthma
Bronchiectasis, per CT imaging
History of recurrent sinusitis, rhinitis
Obstructive sleep apnea, total index 7.8, noncompliant with CPAP
Nocturnal hypoxia, not on home oxygen
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
Resolved per echo August 2023
History of prostate cancer radiation therapy 2008
DNR
Plan/recommendations
At this time, patient appears to be comfortable.
No longer on O2, stable on RA
SOB continued, but this may be deconditioning
PT/OT eval for SNF placement
Home O2 eval ordered
Patient has history of unprovoked PE/DVT, distant history of prostate cancer 2007
Left lower extremity nonocclusive DVT noted
Echocardiogram with dilated RV, hypokinesis, PA pressure 57. This is new
MR also is moderately, worse than before
No evidence of RV strain per CT chest
Mildly elevated troponin, proBNP noted
Moving forward
Continue with empiric anticoagulation
Patient will likely require lifelong anticoagulation
This may be difficult as patient has a history of recurrent falls
RV changes noted per echo. Consider repeat echo in 3 to 6 months
Hyponatremia noted
Patient on hydrochlorothiazide and also instructed to increase food intake due to labile blood pressure
Follow-up for now. Hydrochlorothiazide being held
Cardiology following
Patient with questionable atrial fibrillation per telemetry
On heparin therapy for PE
Eventual transition to Eliquis
History of asthma and sleep apnea
No changes from pulmonary standpoint at this time
Continue budesonide, albuterol as needed
Patient well-known to myself as outpatient
Pulmonary follow-up in 4 to 6 weeks
Subjective Data
-
Date of Service:
Date of Service: December 28, 2023
Chief Complaint: Pulmonary Follow Up
Subjective:
No complaints, stable on RA
Sleeping
Objective Data
Data Reviewed
Vital Signs / I&O / Oxygen:
Vital Signs
Temp Pulse Resp BP Pulse Ox
97.8 F 88 23 100/69 95
12/28/23 07:05 12/28/23 07:40 12/28/23 07:40 12/28/23 06:00 12/28/23 07:40
Intake and Output
12/27/23 12/28/23 12/29/23
06:59 06:59 06:59
Intake Total 945 / 945 360 / 360
Output Total 800 / 800 1075 / 1075
Balance 145 / 145 -715 / -715
SaO2 95
Nasal Cannula flow liters per 1
minute
Physical Exam
General: Comfortable and Other (NAD, asleep in bed)
HEENT: Normocephalic, Anicteric and Moist Mucous Membranes
Cardiovascular: S1-S2, Regular Rhythm and Murmur (2/6 systolic murmur)
Respiratory: Clear (overall decreased), Wheeze (n), Crackles (n), Rhonchi (n) and Non-Labored Respirations
GI: Soft, Non Distended and Non Tender
Neurology: Awake, Alert, Oriented, AO x 3 and No Motor Deficits (Generally weak)
Skin: Cyanosis (n), Jaundice (n) and Rash (n)
Labs/Micro/Reports
Lab Data
12/28/23 04:24
12/28/23 04:24
--- NOTE | 2023-12-28 11:12 | CM ---
PT recommending home with HC.
[facility] has accepted patient.
watch for home oxygen needs.
Home oxygen assessment ordered.
Plan: home with [facility] when medically stable. Possible home oxygen needs.
--- NOTE | 2023-12-28 15:00 | PTCARENOTE ---
received patient from IMU admitted to room 405-02. pt ambulated with 1 assist from wheelchair to bed. pt oriented to room and unit. family at bedside. #25 condom cath placed on patient. pt on room air, lung sounds diminished in bases. sat 95-96%
--- NOTE | 2023-12-28 15:23 | TRANSFER ---
Report to Mary[facility]- transferred to 405.
[2023-12-28] MEDS: MIRALAX 17 GRAMS PO (15:46)
[2023-12-28] MEDS: TRICOR 48 MG PO (17:31)
[2023-12-28] MEDS: CLARITIN 10 MG PO (21:31)
[2023-12-29 03:42] VITALS: BP 138/79
[2023-12-29 06:00] VITALS: BMI 22.9
[2023-12-29] MEDS: PULMICORT 0.5 MG INH ×2 (07:14→19:56)
[2023-12-29] MEDS: VENTOLIN NEBULES 2.5 MG INH (07:14)
[2023-12-29 08:12] VITALS: BP 158/93
[2023-12-29 08:20] LABS: Hematocrit 36.2 % (39.0-52.0); Hemoglobin 13.2 g/dL (13.0-18.0); Mean Corp Hgb Conc. 36.5 g/dL (33.0-37.0); Mean Corpuscular Hgb 30.3 pg (27.0-31.0); Mean Platelet Volume 8.6 fL (7.4-10.4); Platelet Count 354 10^3/uL (130-400); Red Blood Cell Count 4.36 10^6/uL (4.70-6.10); Red Cell Dist. Width 12.9 % (11.5-14.5); White Blood Cell Count 11.2 10^3/uL (4.8-10.8)
[2023-12-29] MEDS: DETROL LA 4 MG PO (08:56)
[2023-12-29] MEDS: ASPIR LOW (ENTERIC COATED) 81 MG PO (08:56)
[2023-12-29] MEDS: PROTONIX 40 MG PO (08:56)
[2023-12-29] MEDS: TOPROL XL 25 MG PO (08:57)
[2023-12-29] MEDS: ELIQUIS 10 MG PO ×2 (08:57→20:49)
[2023-12-29] MEDS: ROXICODONE 5 MG PO (09:02)
[2023-12-29 09:04] LABS: Blood Urea Nitrogen 23 mg/dl (9-20); Calcium 9.2 mg/dl (8.4-10.2); Carbon Dioxide 26 mmol/L (22-30); Chloride 100 mmol/L (98-107); Estimated Creatinine Clearance 38 ml/min; Glucose 105 mg/dl (70-99); Sodium 133 mmol/L (135-145); eGFR 58.17
--- NOTE | 2023-12-29 09:45 | W.PN.PUL.V3 ---
Today's Communication / Plan
-
Continue anticoagulation
Convert to oral anticoagulant-likely lifelong
Wean oxygen
Increase activity
Assessment
-
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
cancer 2008 status post radiation now presents with acute onset right chest pain, labile blood pressure and fall. CT chest confirmed bilateral PE without RV strain. We are asked to comment on pulmonary process.
Acute bilateral PE
Pleurisy, shortness of breath, labile blood pressure
History of PE/DVT 2018
Unprovoked, on anticoagulation for 4 years
Discontinued per hematology after negative hypercoagulable workup
History of multiple falls in the past
Mild aortic stenosis/mitral regurgitation
Normal RV size/function per echo August 2023
Normal PA pressure
New onset paroxysmal atrial fibrillation
Mild tachycardia
Hyponatremia
SOB
Conditions present prior to admission
Recurrent bronchitis
History of asthma
Bronchiectasis, per CT imaging
History of recurrent sinusitis, rhinitis
Obstructive sleep apnea, total index 7.8, noncompliant with CPAP
Nocturnal hypoxia, not on home oxygen
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
Resolved per echo August 2023
History of prostate cancer radiation therapy 2008
DNR
Plan
Respiratory status still somewhat tenuous
Supplemental oxygen-attempt to wean
Assess discharge supplemental oxygen needs prior to discharge
Nebulizers as needed
Pulmicort nebulizers continue
Singulair continues
Aspiration precautions
Patient has history of unprovoked PE/DVT, distant history of prostate cancer 2007
Left lower extremity nonocclusive DVT noted
Echocardiogram with dilated RV, hypokinesis, PA pressure 57. This is new
MR also is moderately, worse than before
No evidence of RV strain per CT chest
Mildly elevated troponin, proBNP noted
Continue anticoagulation
Convert to oral anticoagulant
Patient will likely require lifelong anticoagulation
This may be difficult as patient has a history of recurrent falls
RV changes noted per echo.
Consider repeat echo in 3 to 6 months
Complains of left lateral foot and leg pain-not calf pain, negative Homans, I examined the right foot and he complained of immediate left foot pain??
Reviewed with primary team-x-rays will be had
I do not believe this is DVT related
Analgesia per primary service
Replace electrolytes
Follow serum sodium
Hydrochlorothiazide on hold
Cardiology following-correspondence reviewed-signed off 12/25
Monitor for atrial fibrillation-paroxysmal atrial fibrillation noted on telemetry
Patient well-known to pulmonary-Dr. EspinalMvwqpjz-Ifgwddkr-kxogesmhkwwa left
Pulmonary follow-up in 4 to 6 weeks
Subjective Data
-
Date of Service:
Date of Service: December 29, 2023
Chief Complaint: Pulmonary Follow Up and Dyspnea Follow Up
Subjective:
Still complains of shortness of breath without significant improvement, mild chest congestion, minimal cough, no pleurisy or chest pain, complains of left lower extremity leg pains-sharp and consistent, not calf pain
Review of Systems
General: Other (Per HPI)
Objective Data
Data Reviewed
Vital Signs / I&O:
Vital Signs
Temp Pulse Resp BP Pulse Ox
98.1 F 96 20 153/93 96
12/29/23 08:12 12/29/23 08:57 12/29/23 08:12 12/29/23 08:57 12/29/23 08:12
Intake and Output
12/28/23 12/29/23 12/30/23
06:59 06:59 06:59
Intake Total 360 / 360 1360 / 1360
Output Total 1075 / 1075 2049 / 2049
Balance -715 / -715 -690 / -690
SaO2: 96
Nasal Cannula flow liters per minute: 1
Physical Exam
General: Respiratory Distress (n), Comfortable and Other (NAD, asleep in bed)
HEENT: Normocephalic, Anicteric and Moist Mucous Membranes
Cardiovascular: Regular Rhythm and Murmur (2/6 systolic murmur)
Respiratory: Clear (overall decreased), Wheeze (n), Crackles (n), Rhonchi (n) and Non-Labored Respirations
GI: Soft, Non Distended and Non Tender
Neurology: Awake, Alert and No Motor Deficits (Generally weak)
Skin: Warm, Good Color, Cyanosis (n), Jaundice (n) and Rash (n)
Labs/Micro/Reports
Lab Data
12/29/23 06:41
12/29/23 06:41
--- NOTE | 2023-12-29 10:01 | CM ---
Addendum entered by [place] 12/29/23 14:22:
Patient with c/o ankle pain.
X-ray ordered.
Per nursing unable to stand on ankle.
PT/OT annamaria noted.
Spoke with daughter Shauna, she would like possible skilled rehab.
Referrals to [facility], [facility], [facility], [facility] and [facility].
Original Note:
Patient seen bedside.
Patient does not feel ready to go home yet, left leg hurts.
Continues with oxygen 1 liter.
Home oxygen assessment pending.
Options for home oxygen if needed reviewed, [employer] chosen.
IMM completed.
Daughter Shauna will transport.
Plan: home with [facility], possible home oxygen.
[2023-12-29] MEDS: MORPHINE SULFATE 1 MG IV ×2 (10:53→21:09)
--- NOTE | 2023-12-29 11:28 | W.PN.HOSP.TC ---
Today's Communication/Plan
-
change Lasix to oral
resume Losartan
ankle X-Ray
Assessment / Plan
Assessment / Plan
Assessment:
Acute bilateral PE
Non-Ischemic Myocardial Injury secondary to the above
- CT with bilateral main pulmonary artery, extending into segmental vessels. no heart strain.
- Dopplers: L nonocclusive clot involving the left femoral vein, popliteal vein, peroneal vein, and posterior tibial vein. There is also nonocclusive clot within the visualized proximal profunda femoris vein
- trop peaked at .554
- BNP elevated
- Echo: normal LVEF, but RV enlargement with decreased function (Graves sign). repeat in 3-6 months
- continue supportive care/symptom control
- continue Eliquis, starting with loading dose. Lifelong anticoagulation recommended.
- Cardiology signed off, reviewed with Pulmonary as to etiology, does not believe ankle pain related to DVT.
Left ankle pain
etiology unclear. No signs of gout, foot is warm, does not appear ischemic. Will check X-Ray, ?arthritic related
Acute Hyponatremia
- Likely secondary to increased fluid intake over the past 3 days + HCTZ use + increased ADH state secondary to pain, dyspnea, pulmonary process.
- No clear symptoms at this time attributable to Na level.
- Fluid restrict
- continue daily prn IV Lasix today; will transition to Lasix 20mg daily Friday and stay off HCTZ permanently
- follow Na, 119-->120-->121-->124-->126-->128-->133
New onset parox A.fib
- continue BB for rate control
- continue Eliquis
Benign Hypertension
- Labile BP over the past several days - in part due to med dosing errors, volume shifts, pain, etc.
BP 153/93
- Follow for changes with PE treatment, pain control, etc.
- Continue metoprolol
- Hold HCTZ
- resume Losartan and change to oral Lasix
Moderate Persistent Asthma
- No active wheezing appreciated on exam, SpO2 is acceptable on room air.
- Continue budesonide. Albuterol PRN.
- Follow for any changes/new symptoms.
BPH/OAB
History of Prostate Cancer s/p XRT
- Hold OAB medications acutely.
- Bladder scan protocols.
Vomiting likely from morphine side effect
- prn anti-emetics
reviewed with nursing
prolonged complex visit
DVT Prophylaxis: Eliquis
Code Status: DNR/DNI
Anticipated Discharge: 24 - 48 hours
Subjective/Interval History
-
Date of Service: December 29, 2023
Major complaint is left lateral foot pain, primarily in area around ankle
Objective Data
-
Labs:
Laboratory Results
12/29/23
06:41
WBC 11.2 H
Hgb 13.2
Hct 36.2 L
Plt Count 354 D
Sodium 133 L
Potassium 4.0
Chloride 100
Carbon Dioxide 26
BUN 23 H
Creatinine 1.2
Glucose 105 H
Calcium 9.2
Vital Signs:
Vital Signs
Temp Pulse Resp BP Pulse Ox
98.1 F 96 20 153/93 96
12/29/23 08:12 12/29/23 08:57 12/29/23 08:12 12/29/23 08:57 12/29/23 09:45
I&O
12/28/23 12/29/23 12/30/23
06:59 06:59 06:59
Intake Total 360 / 360 1360 / 1360
Output Total 1075 / 1075 2049 / 2049
Balance -715 / -715 -690 / -690
Review of Systems
-
History Source: Patient and Coordinated Provider
Constitutional: Denies Fever
EENT: Reports No Symptoms Reported
Respiratory: Reports Trouble Breathing
Cardiac: Denies Chest Pain
Abdomen/GI: Reports No Symptoms; Denies Abdominal Pain
Genitourinary: Reports No Symptoms
Musculoskeletal: Reports Joint Pain (left lateral ankle)
Physical Exam
-
General: Well Developed, Well Nourished and No Apparent Distress; Negative Respiratory Distress
HEENT: Normocephalic, Atraumatic and Moist Mucous Membranes
Respiratory: Clear to Auscultation; Negative Wheezes, Rales or Rhonchi
Cardiac: Regular Rhythm and S1/S2
GI: Soft, Nontender and Nondistended
Musculoskeletal: No Clubbing, No Cyanosis (left foot is warm to the touch) and Other (very tender in area of left lateral ankle, not red, no warm)
Neuro: Awake, Alert and Oriented
[2023-12-29 11:44] VITALS: BP 160/93
--- NOTE | 2023-12-29 12:00 | PTCARENOTE ---
Pt c/o L ankle pain 10/10, unrelieved by 5mg PO Yocasta. 1mg IV Morphine given w/ good result. L foot is not swollen, no redness noted, w/ good palpable pulse. Dr Pedroza notified and assessed pt. L ankle Xray ordered.
[2023-12-29] MEDS: LOPRESSOR 5 MG IV (14:27)
[2023-12-29 15:43] VITALS: BP 156/89
[2023-12-29] MEDS: TRICOR 48 MG PO (17:43)
[2023-12-29 19:50] VITALS: BP 139/93
[2023-12-29] MEDS: CLARITIN 10 MG PO (21:03)
[2023-12-29] MEDS: SINGULAIR 10 MG PO (21:03)
[2023-12-29 23:55] VITALS: BP 155/112
[2023-12-30] VITALS (8 sets, daily range): BP systolic 110–158; BP diastolic 72–95; BMI 23.5
[2023-12-30] MEDS: MORPHINE SULFATE 1 MG IV (06:50)
[2023-12-30] MEDS: PULMICORT 0.5 MG INH ×2 (07:11→19:26)
[2023-12-30] MEDS: VENTOLIN NEBULES 2.5 MG INH ×2 (07:12→19:28)
[2023-12-30] MEDS: COZAAR 100 MG PO (08:48)
[2023-12-30] MEDS: PROTONIX 40 MG PO (08:48)
[2023-12-30] MEDS: DETROL LA 4 MG PO (08:48)
[2023-12-30] MEDS: ASPIR LOW (ENTERIC COATED) 81 MG PO (08:48)
[2023-12-30] MEDS: ELIQUIS 10 MG PO ×2 (08:48→20:09)
[2023-12-30] MEDS: LASIX 20 MG PO (08:49)
[2023-12-30] MEDS: TOPROL XL 25 MG PO (08:49)
[2023-12-30 08:54] LABS: % Basophils 0.9 % (0-2); % Eosinophils 7.1 % (0-6); % Immature Granulocytes 3.5 % (0-0.5); % Lymphocytes 11.6 % (20.5-51.1); % Monocytes 16.4 % (1.7-9.3); % Neutrophils 60.5 % (42.2-75.2); Absolute Basophils 0.1 10^3/uL (0-0.2); Absolute Immature Granulocytes 0.5 10^3/uL (0-0.05); Absolute Lymphocytes 1.6 10^3/uL (1.2-3.4); Absolute Monocytes 2.2 10^3/uL (0.1-0.6); Absolute Neutrophils 8.2 10^3/uL (1.4-6.5); Hematocrit 39.4 % (39.0-52.0); Hemoglobin 13.6 g/dL (13.0-18.0); Mean Corp Hgb Conc. 34.5 g/dL (33.0-37.0); Mean Corpuscular Hgb 29.6 pg (27.0-31.0); Mean Corpuscular Volume 85.7 fL (80.0-94.0); Mean Platelet Volume 8.8 fL (7.4-10.4); Nucleated Red Blood Cells % 0 % (-); Platelet Count 364 10^3/uL (130-400); Red Cell Dist. Width 13.1 % (11.5-14.5); White Blood Cell Count 13.6 10^3/uL (4.8-10.8)
[2023-12-30 09:07] LABS: Blood Urea Nitrogen 25 mg/dl (9-20); Calcium 9.7 mg/dl (8.4-10.2); Carbon Dioxide 27 mmol/L (22-30); Chloride 100 mmol/L (98-107); Estimated Creatinine Clearance 42 ml/min; Glucose 117 mg/dl (70-99); Sodium 135 mmol/L (135-145); eGFR > 60.00
--- NOTE | 2023-12-30 09:16 | W.PN.PUL.V3 ---
Today's Communication / Plan
-
Wean oxygen
Assess discharge supplemental oxygen needs
Eliquis-likely lifelong
Outpatient pulmonary follow-up
Assessment
-
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
cancer 2008 status post radiation now presents with acute onset right chest pain, labile blood pressure and fall. CT chest confirmed bilateral PE without RV strain. We are asked to comment on pulmonary process.
Acute bilateral PE
Pleurisy, shortness of breath, labile blood pressure
History of PE/DVT 2018
Unprovoked, on anticoagulation for 4 years
Discontinued per hematology after negative hypercoagulable workup
History of multiple falls in the past
Mild aortic stenosis/mitral regurgitation
Normal RV size/function per echo August 2023
Normal PA pressure
New onset paroxysmal atrial fibrillation
Mild tachycardia
Hyponatremia
SOB
Conditions present prior to admission
Recurrent bronchitis
History of asthma
Bronchiectasis, per CT imaging
History of recurrent sinusitis, rhinitis
Obstructive sleep apnea, total index 7.8, noncompliant with CPAP
Nocturnal hypoxia, not on home oxygen
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
Resolved per echo August 2023
History of prostate cancer radiation therapy 2008
DNR
Plan
Respiratory status improved
Supplemental oxygen-attempt to wean
Assess discharge supplemental oxygen needs prior to discharge-not on home oxygen
Nebulizers as needed
Pulmicort nebulizers continue
Singulair continues
Aspiration precautions per protocol
Patient has history of unprovoked PE/DVT, distant history of prostate cancer 2007
Left lower extremity nonocclusive DVT noted
Echocardiogram with dilated RV, hypokinesis, PA pressure 57. This is new
MR also is moderately, worse than before
No evidence of RV strain per CT chest
Mildly elevated troponin, proBNP noted
Converted to oral anticoagulant-Eliquis
Patient will likely require lifelong anticoagulation
This may be difficult as patient has a history of recurrent falls
RV changes noted per echo.
Consider repeat echo in 3 to 6 months
Complains of left lateral foot and leg pain-not calf pain, negative Homans, Dr. Cordon had examined the right foot on 12/29/2023 and he complained of immediate left foot pain??-On 12/30/2023 complains of right foot pain
Reviewed with primary team-x-rays 12/29/2023 reviewed-arthritis
I do not believe this is DVT related
Analgesia per primary service
Continue to replace electrolytes
Follow serum sodium
Hydrochlorothiazide on hold
Cardiology following-correspondence reviewed-signed off 12/25
Monitor for atrial fibrillation-paroxysmal atrial fibrillation noted on telemetry
Patient well-known to pulmonary-Dr. EspinalIuochly-Bobjxwhn-emuandjdsuoc left
Pulmonary follow-up in 4 to 6 weeks
Subjective Data
-
Date of Service:
Date of Service: December 30, 2023
Chief Complaint: Pulmonary Follow Up and Dyspnea Follow Up
Subjective:
Left foot pain much improved, mild right foot pain now, no complaints of worsening shortness of breath, minimal productive cough, no chest pain, pleurisy
Review of Systems
General: Other (Per HPI)
Objective Data
Data Reviewed
Vital Signs / I&O:
Vital Signs
Temp Pulse Resp BP Pulse Ox
98.2 F 100 22 139/94 95
12/30/23 07:40 12/30/23 08:48 12/30/23 07:40 12/30/23 08:48 12/30/23 07:40
Intake and Output
12/29/23 12/30/23 12/31/23
06:59 06:59 06:59
Intake Total 1360 / 1360
Output Total 2049
Balance -690 / -690
SaO2: 95
Nasal Cannula flow liters per minute: 1
Physical Exam
General: Respiratory Distress (n), Comfortable and Other (NAD, asleep in bed)
HEENT: Normocephalic, Anicteric and Moist Mucous Membranes
Cardiovascular: Regular Rhythm and Murmur (2/6 systolic murmur)
Respiratory: Clear (overall decreased), Wheeze (n), Crackles (n), Rhonchi (n) and Non-Labored Respirations
GI: Soft, Non Distended and Non Tender
Neurology: Awake, Alert and No Motor Deficits (Generally weak)
Skin: Warm, Good Color, Cyanosis (n), Jaundice (n) and Rash (n)
Labs/Micro/Reports
Lab Data
12/30/23 06:36
12/30/23 06:36
[2023-12-30 09:35] LABS: Potassium 4.4 mmol/L (3.5-5.1)
[2023-12-30] MEDS: MIRALAX 17 GRAMS PO (12:34)
--- NOTE | 2023-12-30 13:46 | W.PN.HOSP.TC ---
Addendum entered and electronically signed by Catarino Pedroza MD 12/30/23 15:02:
reviewed with dgt, Erick and son-in-law in room
Original Note:
Today's Communication/Plan
-
continue DOAC
will reevaluate ankles tomorrow, consider ortho consult
Assessment / Plan
Assessment / Plan
Assessment:
Acute bilateral PE
Non-Ischemic Myocardial Injury secondary to the above
- CT with bilateral main pulmonary artery, extending into segmental vessels. no heart strain.
- Dopplers: L nonocclusive clot involving the left femoral vein, popliteal vein, peroneal vein, and posterior tibial vein. There is also nonocclusive clot within the visualized proximal profunda femoris vein
- trop peaked at .554
- BNP elevated
- Echo: normal LVEF, but RV enlargement with decreased function (Graves sign). repeat in 3-6 months
- continue supportive care/symptom control
- continue Eliquis, starting with loading dose. Lifelong anticoagulation recommended.
- Cardiology signed off, reviewed with Pulmonary 12/28 as to etiology, does not believe ankle pain related to DVT.
Left ankle pain yesterday, rt ankle today 12/29
etiology unclear. No signs of gout, foot is warm, does not appear ischemic. left X-ray consistent with arthritis
Acute Hyponatremia
- Likely secondary to increased fluid intake over the past 3 days + HCTZ use + increased ADH state secondary to pain, dyspnea, pulmonary process.
- No clear symptoms at this time attributable to Na level.
- Fluid restrict
- continue daily prn IV Lasix today; transitioned to Lasix 20mg daily Thursday 12/28 and stay off HCTZ permanently
- follow Na, 119-->120-->121-->124-->126-->128-->133-->135
New onset parox A.fib
- continue BB for rate control
- continue Eliquis
Benign Hypertension
- Labile BP over the past several days - in part due to med dosing errors, volume shifts, pain, etc.
BP 124/77
- Follow for changes with PE treatment, pain control, etc.
- Continue metoprolol
- stay off HCTZ
- resumed Losartan and change to oral Lasix
Moderate Persistent Asthma
- No active wheezing appreciated on exam, SpO2 is acceptable on room air.
- Continue budesonide. Albuterol PRN.
- Follow for any changes/new symptoms.
BPH/OAB
History of Prostate Cancer s/p XRT
- Hold OAB medications acutely.
- Bladder scan protocols.
Vomiting likely from morphine side effect
- prn anti-emetics
awaiting decision on SNF
DVT Prophylaxis: Eliquis
Code Status: DNR/DNI
Anticipated Discharge: 24 - 48 hours
Subjective/Interval History
-
Date of Service: December 30, 2023
Yesterday complained of left ankle pain, today it is rt ankle
Objective Data
-
Labs:
Laboratory Results
12/30/23
06:36
WBC 13.6 H
Hgb 13.6
Hct 39.4
Plt Count 364
Sodium 135
Potassium 4.4
Chloride 100
Carbon Dioxide 27
BUN 25 H
Creatinine 1.1
Glucose 117 H
Calcium 9.7
Vital Signs:
Vital Signs
Temp Pulse Resp BP Pulse Ox
97.7 F 95 18 124/77 97
12/30/23 11:34 12/30/23 11:34 12/30/23 11:34 12/30/23 11:34 12/30/23 11:34
I&O
12/29/23 12/30/23 12/31/23
06:59 06:59 06:59
Intake Total 1360 / 1360
Output Total 2049
Balance -690 / -690
Review of Systems
-
History Source: Patient and Coordinated Provider
Constitutional: Denies Fever
EENT: Reports No Symptoms Reported
Respiratory: Reports Trouble Breathing
Cardiac: Denies Chest Pain
Abdomen/GI: Reports No Symptoms; Denies Abdominal Pain
Genitourinary: Reports No Symptoms
Musculoskeletal: Reports Joint Pain (right lateral ankle)
Physical Exam
-
General: Well Developed, Well Nourished and No Apparent Distress; Negative Respiratory Distress
HEENT: Normocephalic, Atraumatic and Moist Mucous Membranes
Respiratory: Clear to Auscultation; Negative Wheezes, Rales or Rhonchi
Cardiac: Regular Rhythm and S1/S2
GI: Soft, Nontender and Nondistended
Musculoskeletal: No Clubbing, No Cyanosis (feet are warm to the touch) and Other (very tender in area of right lateral ankle, not red, not warm)
Neuro: Awake, Alert and Oriented
--- NOTE | 2023-12-30 14:24 | RESPNOTE ---
patient can not walk very far due to pain in feet. He was able to stand up and take a few steps with walker, he felt short of breath and desaturated to 86% on room air while standing, he walked a few steps on 2 liters with sa2 =92-95 %
--- NOTE | 2023-12-30 16:46 | PTCARENOTE ---
Received patient this am AAOx3. Pt NULATO with bilateral hearing aides. Pt complained of pain in left an right foot. Pt medicated with scheduled Tylenol with relief. OOB to chair an tolerated well. Tolerated diet, appetite poor. Made patient
comfortable. Cont to assess patient status.
--- NOTE | 2023-12-30 17:22 | CM ---
Appears to have weaned off oxygen
Spoke with pt and dgt Shauna at bedside.
SNf picks planed in care port . Will need to picks SNF and get auth.
PLAN To SNf after auth obtained
[2023-12-30] MEDS: TRICOR 48 MG PO (17:33)
[2023-12-30] MEDS: CLARITIN 10 MG PO (21:11)
[2023-12-30] MEDS: SINGULAIR 10 MG PO (21:11)
[2023-12-30] MEDS: ROXICODONE 5 MG PO (21:16)
--- NOTE | 2023-12-30 22:00 | W.PN.UPDATE ---
Update Note
Progress Note Update
RN notes left foot and ankle tender. xray yesterday neg for fx. Now with redness as well. check uric acid level.
pt know dvt in that extremity and already being anticoagulated.
--- NOTE | 2023-12-30 22:32 | PTCARENOTE ---
2229, pt c/o pain in lt foot. lt anterior foot, inner side of foot and ankle noted to be pink and tender to touch. BHAVANA Tafoya notified and aware. No additional interventions at this time
--- NOTE | 2023-12-30 22:42 | PTCARENOTE ---
2242 Labs for gout ordered for the AM per Lottie GREEN
[2023-12-31] VITALS (8 sets, daily range): BP systolic 121–152; BP diastolic 79–88; PULSE 98; O2SAT 95; BMI 23.9
--- NOTE | 2023-12-31 02:55 | DOWNTIME ---
There was a [employer] Downtime on 12/31/2023 from 0100 to 12/31/2023 at 0252. Downtime documentation of patient's care, including medication administrations, has been reconciled in the electronic record per guidelines. Refer to the
patient's paper chart under the miscellaneous tab to see printed paper medication records and downtime forms.
[2023-12-31] MEDS: ROXICODONE 5 MG PO ×2 (04:36→17:32)
[2023-12-31 06:18] LABS: % Basophils 0.6 % (0-2); % Eosinophils 9.1 % (0-6); % Immature Granulocytes 4.1 % (0-0.5); % Lymphocytes 11.8 % (20.5-51.1); % Monocytes 14.1 % (1.7-9.3); % Neutrophils 60.3 % (42.2-75.2); Absolute Basophils 0.1 10^3/uL (0-0.2); Absolute Eosinophils 1.6 10^3/uL (0-0.7); Absolute Immature Granulocytes 0.7 10^3/uL (0-0.05); Absolute Monocytes 2.4 10^3/uL (0.1-0.6); Absolute Neutrophils 10.4 10^3/uL (1.4-6.5); Hematocrit 38.4 % (39.0-52.0); Mean Corp Hgb Conc. 33.9 g/dL (33.0-37.0); Mean Corpuscular Hgb 28.8 pg (27.0-31.0); Mean Corpuscular Volume 85.1 fL (80.0-94.0); Mean Platelet Volume 8.5 fL (7.4-10.4); Nucleated Red Blood Cells % 0 % (-); Platelet Count 370 10^3/uL (130-400); Red Blood Cell Count 4.51 10^6/uL (4.70-6.10); Red Cell Dist. Width 13.2 % (11.5-14.5); White Blood Cell Count 17.2 10^3/uL (4.8-10.8)
[2023-12-31 06:44] LABS: Blood Urea Nitrogen 27 mg/dl (9-20); Calcium 10.2 mg/dl (8.4-10.2); Carbon Dioxide 27 mmol/L (22-30); Chloride 97 mmol/L (98-107); Estimated Creatinine Clearance 38 ml/min; Glucose 126 mg/dl (70-99); Potassium 4.9 mmol/L (3.5-5.1); Sodium 133 mmol/L (135-145); Uric Acid 4.6 mg/dl (3.5-8.5); eGFR 58.17
[2023-12-31] MEDS: PULMICORT 0.5 MG INH (07:49)
[2023-12-31] MEDS: ELIQUIS 10 MG PO ×2 (08:36→20:12)
[2023-12-31] MEDS: DETROL LA 4 MG PO (08:36)
[2023-12-31] MEDS: COZAAR 100 MG PO (08:36)
[2023-12-31] MEDS: PROTONIX 40 MG PO (08:36)
[2023-12-31] MEDS: ASPIR LOW (ENTERIC COATED) 81 MG PO (08:37)
[2023-12-31] MEDS: LASIX 20 MG PO (08:37)
[2023-12-31] MEDS: TOPROL XL 25 MG PO (08:37)
--- NOTE | 2023-12-31 08:59 | W.PN.PUL.V3 ---
Today's Communication / Plan
-
Respiratory status improved
Wean oxygen
Increase activity if able with significant bilateral foot/ankle pain
Uric acid normal
Analgesia and additional ankle/foot workup per primary team
Assessment
-
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
cancer 2008 status post radiation now presents with acute onset right chest pain, labile blood pressure and fall. CT chest confirmed bilateral PE without RV strain. We are asked to comment on pulmonary process.
Acute bilateral PE
Pleurisy, shortness of breath, labile blood pressure
History of PE/DVT 2018
Unprovoked, on anticoagulation for 4 years
Discontinued per hematology after negative hypercoagulable workup
History of multiple falls in the past
Mild aortic stenosis/mitral regurgitation
Normal RV size/function per echo August 2023
Normal PA pressure
New onset paroxysmal atrial fibrillation
Mild tachycardia
Hyponatremia
SOB
Conditions present prior to admission
Recurrent bronchitis
History of asthma
Bronchiectasis, per CT imaging
History of recurrent sinusitis, rhinitis
Obstructive sleep apnea, total index 7.8, noncompliant with CPAP
Nocturnal hypoxia, not on home oxygen
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
Resolved per echo August 2023
History of prostate cancer radiation therapy 2008
DNR
Plan
Respiratory status improved
Supplemental oxygen-attempt to wean
Assess discharge supplemental oxygen needs prior to discharge-not on home oxygen
Nebulizers as needed
Pulmicort nebulizers continue
Singulair continues
Aspiration precautions per protocol
Patient has history of unprovoked PE/DVT, distant history of prostate cancer 2007
Left lower extremity nonocclusive DVT noted
Echocardiogram with dilated RV, hypokinesis, PA pressure 57. This is new
MR also is moderately, worse than before
No evidence of RV strain per CT chest
Mildly elevated troponin, proBNP noted
Converted to oral anticoagulant-Eliquis
Patient will likely require lifelong anticoagulation
This may be difficult as patient has a history of recurrent falls
RV changes noted per echo.
Consider repeat echo in 3 to 6 months
Complains of left lateral foot and leg pain-not calf pain, negative Meek, Dr. Cordon had examined the right foot on 12/29/2023 and he complained of immediate left foot pain??-On 12/30/2023 complains of right foot pain-and on 12/31/2023 complains of
bilateral foot pain
Uric acid level normal
Foot x-rays 12/29/2023 reviewed-arthritis
I do not believe this is DVT related
Analgesia per primary service
Additional workup and possible orthopedic evaluation per primary team
Replace electrolytes
Follow serum sodium
Hydrochlorothiazide on hold
Cardiology following-correspondence reviewed-signed off 12/26/23
Monitor for atrial fibrillation-paroxysmal atrial fibrillation noted on telemetry
Patient well-known to pulmonary-Dr. EspinalIgzvypc-Ytmemejv-jezsazdgglon left
Pulmonary follow-up in 4 to 6 weeks
Subjective Data
-
Date of Service:
Date of Service: December 31, 2023
Chief Complaint: Pulmonary Follow Up and Dyspnea Follow Up
Subjective:
No complaints of worsening shortness of breath, continues to have intermittent right and left foot/leg pains, no congestion, productive cough
Review of Systems
General: Other (Per HPI)
Objective Data
Data Reviewed
Vital Signs / I&O:
Vital Signs
Temp Pulse Resp BP Pulse Ox
98.2 F 100 20 140/86 95
12/31/23 07:56 12/31/23 08:36 12/31/23 07:56 12/31/23 08:36 12/31/23 07:56
Intake and Output
12/30/23 12/31/23 01/01/24
06:59 06:59 06:59
Intake Total 600 / 600
Balance 600 / 600
SaO2: 95
Nasal Cannula flow liters per minute: 1
Physical Exam
General: Respiratory Distress (n), Comfortable and Other (NAD, asleep in bed)
HEENT: Normocephalic, Anicteric and Moist Mucous Membranes
Cardiovascular: Regular Rhythm and Murmur (2/6 systolic murmur)
Respiratory: Clear (overall decreased), Wheeze (n), Crackles (n), Rhonchi (n) and Non-Labored Respirations
GI: Soft, Non Distended and Non Tender
Neurology: Awake, Alert and No Motor Deficits (Generally weak)
Skin: Warm, Good Color, Cyanosis (n), Jaundice (n) and Rash (n)
Labs/Micro/Reports
Lab Data
12/31/23 04:46
12/31/23 04:46
--- NOTE | 2023-12-31 12:05 | CM ---
Patient seen bedside.
spoke with patient and son in law.
Discussed skilled rehab.
Per MD, not ready today. ID consulted.
Plan: skilled rehab once medically stable.
Patient will require insurance authorization.
--- NOTE | 2023-12-31 13:45 | W.PN.HOSP.TC ---
Today's Communication/Plan
-
consult ID
consider trial of Colchicine
Pain has reduced, but still requiring Oxycodone prn
Assessment / Plan
Assessment / Plan
Assessment:
Acute bilateral PE
Non-Ischemic Myocardial Injury secondary to the above
- CT with bilateral main pulmonary artery, extending into segmental vessels. no heart strain.
- Dopplers: L nonocclusive clot involving the left femoral vein, popliteal vein, peroneal vein, and posterior tibial vein. There is also nonocclusive clot within the visualized proximal profunda femoris vein
- trop peaked at .554
- BNP elevated
- Echo: normal LVEF, but RV enlargement with decreased function (Graves sign). repeat in 3-6 months
- continue supportive care/symptom control
- continue Eliquis, starting with loading dose. Lifelong anticoagulation recommended.
- Cardiology signed off, reviewed with Pulmonary 12/28 as to etiology, does not believe ankle pain related to DVT.
Left ankle pain initially, then rt ankle 12/29. On 12/30 lateral foot is slightly red and warm.
Uric Acid 4.6, but concern this is gout
Increasing WBC
11.2-->13.6-->17.2
will consult ID
Acute Hyponatremia
- Likely secondary to increased fluid intake over the past 3 days + HCTZ use + increased ADH state secondary to pain, dyspnea, pulmonary process.
- No clear symptoms at this time attributable to Na level.
- Fluid restrict
- continue daily prn IV Lasix today; transitioned to Lasix 20mg daily Thursday 12/28 and stay off HCTZ permanently
- follow Na, 119-->120-->121-->124-->126-->128-->133-->135-->133
New onset parox A.fib
- continue BB for rate control
- continue Eliquis
Benign Hypertension
- Labile BP over the past several days - in part due to med dosing errors, volume shifts, pain, etc.
BP 124/77
- Follow for changes with PE treatment, pain control, etc.
- Continue metoprolol
- stay off HCTZ
- resumed Losartan and change to oral Lasix
Moderate Persistent Asthma
- No active wheezing appreciated on exam, SpO2 is acceptable on room air.
- Continue budesonide. Albuterol PRN.
- Follow for any changes/new symptoms.
BPH/OAB
History of Prostate Cancer s/p XRT
- Hold OAB medications acutely.
- Bladder scan protocols.
Vomiting likely from morphine side effect
- prn anti-emetics
awaiting decision on SNF
DVT Prophylaxis: Eliquis
Code Status: DNR/DNI
Anticipated Discharge: 24 - 48 hours
Subjective/Interval History
-
Date of Service: December 31, 2023
Still with foot pain though markedly less intense. No sob
Objective Data
-
Labs:
Laboratory Results
12/31/23
04:46
WBC 17.2 H
Hgb 13.0
Hct 38.4 L
Plt Count 370
Sodium 133 L
Potassium 4.9
Chloride 97 L
Carbon Dioxide 27
BUN 27 H
Creatinine 1.2
Glucose 126 H
Calcium 10.2
Vital Signs:
Vital Signs
Temp Pulse Resp BP Pulse Ox
98.3 F 98 20 136/80 95
12/31/23 11:47 12/31/23 11:47 12/31/23 11:47 12/31/23 11:47 12/31/23 11:47
I&O
12/30/23 12/31/23 01/01/24
06:59 06:59 06:59
Intake Total 600 / 600
Balance 600 / 600
Review of Systems
-
History Source: Patient and Coordinated Provider
Constitutional: Denies Fever
EENT: Reports No Symptoms Reported
Respiratory: Reports Trouble Breathing
Cardiac: Denies Chest Pain
Abdomen/GI: Reports No Symptoms; Denies Abdominal Pain
Genitourinary: Reports No Symptoms
Musculoskeletal: Denies No Symptoms (now bilateral foot pain, lateral feet, left>Rt, though much less intense)
Physical Exam
-
General: Well Developed, Well Nourished and No Apparent Distress; Negative Respiratory Distress
HEENT: Normocephalic, Atraumatic and Moist Mucous Membranes
Respiratory: Clear to Auscultation; Negative Wheezes, Rales or Rhonchi
Cardiac: Regular Rhythm and S1/S2
GI: Soft, Nontender and Nondistended
Musculoskeletal: No Clubbing, No Cyanosis (feet are warm to the touch) and Other (left laterl foot slightlyred, tender, minimally warm)
Neuro: Awake, Alert and Oriented
--- NOTE | 2023-12-31 13:54 | CHAP ---
Msgr. Nicho Anglin of [facility] in [place] anointed Jay and gave him Holy Communion.
--- NOTE | 2023-12-31 16:08 | CON.ID ---
Addendum entered and electronically signed by Elizabeth Galvan MD 12/31/23 17:30:
I personally performed a history and physical exam of the patient and discussed management with the resident. I reviewed the resident's note and agree with the documented findings and plan of care HPI/CC with the following additions/corrections:
CC: chest pain/shortness of breath
HPI:
agree with medical, surgical, allergy, family history, ROS as written
meds reviewed
Physical Exam
General: no acute distress
Cardiac: S1/S2, Tachycardia and Murmur noted
Respiratory: CTA bilaterally, no rales, wheezes or ronchi
GI: Soft, Non Tender, Non Distended and Normal Bowel Sounds
Musculoskeletal: no edema
Neuro: awake and alert
A&P
Leukocytosis
DVT/PE
Bronchiectasis
Prostate Cancer s/p XRT
Leukocytosis - may be driven by progressive eosinophilia vs other cause
Eosinophilia - AEC now 1500
- suspect gout - exquistely tender to light touch, agree with trial of colchicine
- note normal uric acid level, doesnt rule out gout
- given progressive eosinophilia would hold nonessential meds - eosinophilia may be contributing to leukocytosis
- clinical experience is that protonix commonly associated with asymptomatic eosinophilia suggest switch to famotidine
- can have outpatient follow up for eosinophilia in 4-6 weeks
- no pulmonary symptoms
- + dysuria. Pt is not sexually active with partner. Will hold off on STD testing. Will repeat UA
- send covid ag
- mild thrush noted on oral exam. Start Nystatin swish and swallow for 7 days - not the cause of leukocytosis
- no BM he says for 2 weeks, would like to see BM before dc, defer management to primary team
- PIVs without erythema or tenderness
- after above workup could consider dc
AW
Original Note:
Documented by User: Madisyn Waddell MD, Resident 12/31/23 16:52
Consultation
-
Date/Time Consultation Requested: 12/31/23 13:39
Requesting Provider: Catarino Pedroza MD
Performing Provider: Elizabeth Galvan MD
Reason for Consultation: Leukocytosis of unknown cause
Chief Complaint / Past History
Chief Complaint
Leukocytosis
History of Present Illness
88 yr old male with hx of DVT/PE, chronic LLE swelling, interstitial lung disease, bronchiectasis, recurrent sinusitis, pulm HTN, [place] pneumonia, prostate cancer, who presented to the ED on 12/23 with intermittent chest pain, worsening dyspnea
and blood pressure changes. Upon arrival he was noted to be afebrile, with elevated BP 189, hyponatremic, with elevated proBNP and troponins. WBC 12.4 with left shift. Chest CT revealed bilateral PE and he was started on heparin drip, transitioned
to Eliquis. He was also diagnosed with new onset Afib.
Urinalysis 12/25 was unremarkable. However, he has maintained an elevated white count since admission, peaking at 18.7, ongoing today.
He reported left foot pain yesterday and uric acid level was measured - 4.6
Left ankle x-ray 12/28 showed no osseous injury, and mild degenerative changes.
We are consulted to assess/manage leukocytosis of unknown cause.
Past History
Past Medical History: Other
Additional Past Medical History:
Prostate Cancer s/p XRT
Hypertension
Moderate Persistent Asthma
History of DVT / PE (2019)
History of Cardiomyopathy
OAB / BPH
Non-Melanoma Skin Cancer
Bronchiectasis
Interstitial lung disease
Pulmonary hypertension
CHF
Stroke
Past Surgical History: Other (Herniorrhaphy, Nasal Polypectomy, Mohs Surgery, Thumb Surger)
Allergy History:
No Known Allergies Allergy (Verified 01/06/23 11:50)
Medications Reviewed: Yes
Social History
Tobacco: Non-Smoker
Alcohol: Occasional
Living: Other (with partner)
Employment: Retired
Family History
Family History: Not Pertinent
Review of Systems
Review of Systems
General: Negative Fever
HEENT: Negative Pharyngitis
Respiratory: Cough
Gasteroenterology: Other (poor appetite, constipation, no diarrhea)
Genital / Urological: Dysuria and Other (not sexually active)
Musculoskeletal: Joint Pain (Left ankle pain)
Vital Signs
Temp Pulse Resp BP Pulse Ox
98.3 F 98 20 136/80 95
12/31/23 11:47 12/31/23 11:47 12/31/23 11:47 12/31/23 11:47 12/31/23 11:47
Physical Exam
Physical Exam
Constitutional: No Acute Distress and Comfortable
Pharynx: Other (no exudates); Negative Erythema
Oral: Poor Dentition (missing multiple teeth), Thrush (mild) and No Ulcers
Gastrointestinal: Soft, Non Tender, Non Distended, No Rebound and No Guarding
Genito-Urinary: Other; Negative Suprapubic Tenderness
Musculoskeletal: Joint Swelling (left ankle) and Other (Tenderness to L ankle and R 1st MTP joint)
Skin: Warm and Dry
Neurological: Awake, Alert and Other (answers questions appropriately)
Psychological: Calm
Lines: PIV (R forearm, intact)
Lab / Diagnostic Study Results
12/31/23 04:46
12/31/23 04:46
Abs Immat Gran (auto) 0.7 10^3/uL (0-0.05) H 12/31/23 04:46
Absolute Neuts (auto) 10.4 10^3/uL (1.4-6.5) H 12/31/23 04:46
Absolute Lymphs (auto) 2.0 10^3/uL (1.2-3.4) 12/31/23 04:46
Absolute Monos (auto) 2.4 10^3/uL (0.1-0.6) H 12/31/23 04:46
Absolute Basos (auto) 0.1 10^3/uL (0-0.2) 12/31/23 04:46
Immature Gran % 4.1 % (0-0.5) H 12/31/23 04:46
Neutrophils % 60.3 % (42.2-75.2) 12/31/23 04:46
Lymphocytes % 11.8 % (20.5-51.1) L 12/31/23 04:46
Monocytes % 14.1 % (1.7-9.3) H 12/31/23 04:46
Eosinophils % 9.1 % (0-6) H 12/31/23 04:46
Basophils % 0.6 % (0-2) 12/31/23 04:46
PT 16.3 Sec (11.4-14.6) H 12/25/23 08:29
INR 1.30 12/25/23 08:29
Assessment / Plan
Persistent Leukocytosis
Dysuria
Mild oral thrush
Left ankle pain and swelling
R 1st MTP joint tenderness
- Uric acid 4.6
- L ankle xray 12/28: No osseous injury appreciated. Mild degenerative change.
- UA 12/25 unremarkable
- Leukocytosis of uncertain cause. Eosinophilia and neutrophilia on CBC. Infectious vs inflammatory vs iatrogenic cause.
- Pt complains of dysuria (burning pain with urination). Pt is not sexually active with partner. Will hold off on STD testing. Will repeat UA
- Eosinophilia possibly etiology includes asthma, medication reaction. Consider holding all nonessential medications. Elevated eosinophils can be seen in PPI use, consider switch to famotidine.
- Pt denies significant alcohol use, heavy cheese or red meat consumption. Pain in L ankle, tenderness in R first MTP joint. Symptom improvement noted with colchicine so far. Likely gout.
- Mild thrush noted on oral exam. Start Nystatin swish and swallow for 7 days
- Pt states he has not had a bowel movement in 2 weeks. Will defer to hospitalist for management

Documented by User: Elizabeth Galvan MD 12/31/23 17:26
Consultation
-
Date/Time Consultation Requested: 12/31/23 13:39
Date/Time Consultation Performed: 12/31/23 14:46
[2023-12-31] MEDS: TRICOR 48 MG PO (17:30)
[2023-12-31] MEDS: MYCOSTATIN ORAL SUSPENSION 5 ML PO ×2 (17:34→20:13)
[2023-12-31] MEDS: MYCOSTATIN ORAL SUSPENSION PO (17:40)
[2023-12-31 18:03] LABS: COVID-19 Antigen Negative (Negative)
[2023-12-31] MEDS: SINGULAIR 10 MG PO (20:12)
[2023-12-31] MEDS: CLARITIN 10 MG PO (20:12)
[2023-12-31] MEDS: MILK OF MAGNESIA 30 ML PO (21:45)
[2023-12-31] MEDS: DULCOLAX 10 MG RECTAL (21:45)
[2023-12-31 22:14] LABS: Urine Albumin Negative (Neg - Trace); Urine Bilirubin Negative (Negative); Urine Character Clear (Clear); Urine Color Yellow; Urine Glucose Negative (Negative); Urine Ketone Negative (Negative); Urine Leukocyte Negative (Negative); Urine Nitrite Negative (Negative); Urine Occult Blood Negative (Negative); Urine Urobilinogen Negative (Neg - 1+)
[2024-01-01] VITALS (8 sets, daily range): BP systolic 77–128; BP diastolic 55–87; PULSE 92; O2SAT 97; BMI 23.7
[2024-01-01 06:52] LABS: Hematocrit 39.9 % (39.0-52.0); Hemoglobin 13.9 g/dL (13.0-18.0); Mean Corp Hgb Conc. 34.8 g/dL (33.0-37.0); Mean Corpuscular Hgb 29.8 pg (27.0-31.0); Mean Corpuscular Volume 85.4 fL (80.0-94.0); Mean Platelet Volume 9.1 fL (7.4-10.4); Platelet Count 364 10^3/uL (130-400); Red Blood Cell Count 4.67 10^6/uL (4.70-6.10); Red Cell Dist. Width 13.1 % (11.5-14.5); White Blood Cell Count 18.8 10^3/uL (4.8-10.8)
[2024-01-01 07:25] LABS: % Basophils 0.3 % (0-2); % Eosinophils 8.4 % (0-6); % Immature Granulocytes 4.9 % (0-0.5); % Lymphocytes 9.2 % (20.5-51.1); % Monocytes 13.5 % (1.7-9.3); % Neutrophils 63.7 % (42.2-75.2); Absolute Basophils 0.1 10^3/uL (0-0.2); Absolute Eosinophils 1.6 10^3/uL (0-0.7); Absolute Immature Granulocytes 0.9 10^3/uL (0-0.05); Absolute Lymphocytes 1.7 10^3/uL (1.2-3.4); Absolute Monocytes 2.5 10^3/uL (0.1-0.6); Nucleated Red Blood Cells % 0 % (-)
--- NOTE | 2024-01-01 08:15 | W.PN.ID1 ---
Addendum entered and electronically signed by Elizabeth Galvan MD 01/01/24 15:05:
I saw and evaluated the patient. I reviewed the resident�s note and agree with findings and plan as documented in the resident�s note with the following additions/corrections:
S:
afebrile
bp stable
no overnight events
much less tender ankle
'I feel much better!'
O:
VSS
Exam:
General: no acute distress
Cardiac: S1/S2, Tachycardia and Murmur noted
Respiratory: CTA bilaterally, no rales, wheezes or ronchi
GI: Soft, Non Tender, Non Distended and Normal Bowel Sounds
Musculoskeletal: no edema
Neuro: awake and alert
Labs:
WBC: 18.8
AEC down to 1440
Cr stable 1.2
covid ag negative
UA no pyuria
CXR: small right pleural effusion, no infiltrates
AP:
Leukocytosis
DVT/PE
Bronchiectasis
Prostate Cancer s/p XRT
Bilateral ankle pain
Leukocytosis - may be driven by progressive eosinophilia vs other cause
Eosinophilia - AEC now 1440
- suspect gout - exquisitely tender to light touch and responded to trial of colchicine - management per primay
- note normal uric acid level, doesnt rule out gout
- given chronic eosinophilia would hold nonessential meds - eosinophilia may be contributing to leukocytosis
- clinical experience is that protonix commonly associated with asymptomatic eosinophilia switched to famotidine
- can have outpatient follow up for eosinophilia in 4-6 weeks
- c/w Nystatin swish and swallow for 7 days - not the cause of leukocytosis/eosinophilia
- had BM
- stable for dc from ID perspective, can follow up with me in about 6-8 weeks if eosinophilia not resolved
Original Note:
Documented by User: Madisyn Waddell MD, Resident 01/01/24 09:54
Date of Service
Date of Service: January 01, 2024
Today's Communication
Follow CBC
Assessment / Plan
A&P
Leukocytosis
DVT/PE
Bronchiectasis
Prostate Cancer s/p XRT
- Uric acid 4.6
- L ankle xray 12/28: No osseous injury appreciated. Mild degenerative change.
- UA 12/25 unremarkable
- Leukocytosis - may be driven by progressive eosinophilia vs other cause
Eosinophilia - AEC now 1500
- suspect gout - improved tenderness with trial of colchicine. Son has gout as well
- note normal uric acid level, doesn't rule out gout
- given progressive eosinophilia would hold nonessential meds - eosinophilia may be contributing to leukocytosis
- clinical experience is that protonix commonly associated with asymptomatic eosinophilia suggest switch to famotidine
- can have outpatient follow up for eosinophilia in 4-6 weeks
- no pulmonary symptoms
- no dysuria. Pt is not sexually active with partner. Will hold off on STD testing. Repeat UA negative
- send covid ag
- mild thrush noted on oral exam. Start Nystatin swish and swallow for 7 days - not the cause of leukocytosis
- no BM he says for 2 weeks per patient, had 1 episode of liquid stool last night
- PIVs without erythema or tenderness
- after above workup could consider dc
Subjective / Review of Systems
Review of Systems: Cough (nonproductive), Chest Pain (pleuritic), No Abdominal Pain and Joint Pain (L ankle pain)
Vital Signs / Physical Exam
Vital Signs
Vital Signs
Temp Pulse Resp BP Pulse Ox
98.1 F 102 18 128/87 95
01/01/24 08:06 01/01/24 08:06 01/01/24 08:06 01/01/24 08:06 01/01/24 08:06
Physical Exam
Cardiovascular: Regular Rate and S1/S2; Negative Peripheral Edema
Pulmonary: Clear and Non Labored; Negative Wheezes, Rales or Rhonchi
Gastrointestinal: Soft, Non Tender, Non Distended, Normal Bowel Sounds, No Rebound and No Guarding
Genito-Urinary: Negative Suprapubic Tenderness or CVA Tenderness
Musculoskeletal: Joint Swelling (L ankle edema)
Skin: Warm and Dry
Neurological: Awake and Alert
Lines: PIV (R forearm, no erythema or tenderness)
Objective Data
Lab Data
Lab Results
01/01/24 04:48
12/31/23 04:46
PT 16.3 Sec (11.4-14.6) H 12/25/23 08:29
INR 1.30 12/25/23 08:29
APTT 75.7 Sec (23.4-35.0) H 12/26/23 06:34
Estimated Creat Clear 38 ml/min 12/31/23 04:46
Total Bilirubin 2.0 mg/dl (0.2-1.3) H 12/24/23 23:45
AST 51 U/L (17-59) 12/24/23 23:45
ALT 20 U/L (0-50) 12/24/23 23:45
Alkaline Phosphatase 95 U/L (38-126) 12/24/23 23:45
Most recent labs reviewed.

Documented by User: Elizabeth Galvan MD 01/01/24 15:04
Chief Complaint
-: Leukocytosis
Vital Signs / Physical Exam
Physical Exam
Constitutional: No Acute Distress
--- NOTE | 2024-01-01 09:04 | W.PN.UPDATE ---
Update Note
Progress Note Update
I saw and evaluated the patient. I reviewed the resident�s note and agree with findings and plan as documented in the resident�s note with the following additions/corrections:
S:
afebrile
bp stable
no overnight events
much less tender ankle
O:
VSS
Exam:
General: no acute distress
Cardiac: S1/S2, Tachycardia and Murmur noted
Respiratory: CTA bilaterally, no rales, wheezes or ronchi
GI: Soft, Non Tender, Non Distended and Normal Bowel Sounds
Musculoskeletal: no edema
Neuro: awake and alert
Labs:
WBC: 18.8
AEC down to 1440
Cr stable 1.2
covid ag negative
UA no pyuria
CXR: small right pleural effusion, no infiltrates
AP:
Leukocytosis
DVT/PE
Bronchiectasis
Prostate Cancer s/p XRT
Bilateral ankle pain
Leukocytosis - may be driven by progressive eosinophilia vs other cause
Eosinophilia - AEC now 1440
- suspect gout - exquisitely tender to light touch and responded to trial of colchicine - management per primay
- note normal uric acid level, doesnt rule out gout
- given chronic eosinophilia would hold nonessential meds - eosinophilia may be contributing to leukocytosis
- clinical experience is that protonix commonly associated with asymptomatic eosinophilia switched to famotidine - switched
- can have outpatient follow up for eosinophilia in 4-6 weeks
- c/wNystatin swish and swallow for 7 days - not the cause of leukocytosis/eosinophilia
- had BM
- stable for dc from ID perspective, can follow up with me in about 6-8 weeks if eosinophilia not resolved
[2024-01-01] MEDS: ROXICODONE 5 MG PO ×2 (09:10→16:09)
[2024-01-01] MEDS: COZAAR 100 MG PO (09:11)
[2024-01-01] MEDS: DETROL LA 4 MG PO (09:11)
[2024-01-01] MEDS: LASIX 20 MG PO (09:11)
[2024-01-01] MEDS: TOPROL XL 25 MG PO (09:12)
[2024-01-01] MEDS: MYCOSTATIN ORAL SUSPENSION 5 ML PO ×4 (09:12→21:57)
[2024-01-01] MEDS: ASPIR LOW (ENTERIC COATED) 81 MG PO (09:12)
[2024-01-01] MEDS: ELIQUIS 10 MG PO ×2 (09:12→21:57)
[2024-01-01] MEDS: PROTONIX 40 MG PO (09:14)
[2024-01-01] MEDS: FLUSH (NSS) 1 FLUSH IV ×2 (09:24→09:25)
--- NOTE | 2024-01-01 10:11 | W.PN.PUL.V3 ---
Today's Communication / Plan
-
Wean oxygen
Monitor leukocytosis/eosinophilia
Check chest x-ray
Colchicine
Assessment
-
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
cancer 2008 status post radiation now presents with acute onset right chest pain, labile blood pressure and fall. CT chest confirmed bilateral PE without RV strain. We are asked to comment on pulmonary process.
Acute bilateral PE
Pleurisy, shortness of breath, labile blood pressure
History of PE/DVT 2018
Unprovoked, on anticoagulation for 4 years
Discontinued per hematology after negative hypercoagulable workup
History of multiple falls in the past
Mild aortic stenosis/mitral regurgitation
Normal RV size/function per echo August 2023
Normal PA pressure
New onset paroxysmal atrial fibrillation
Mild tachycardia
Hyponatremia
SOB
Leukocytosis
Peripheral eosinophilia
Conditions present prior to admission
Recurrent bronchitis
History of asthma
Bronchiectasis, per CT imaging
History of recurrent sinusitis, rhinitis
Obstructive sleep apnea, total index 7.8, noncompliant with CPAP
Nocturnal hypoxia, not on home oxygen
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
Resolved per echo August 2023
History of prostate cancer radiation therapy 2008
DNR
Plan
Respiratory status improved
Supplemental oxygen-attempt to wean
Assess discharge supplemental oxygen needs prior to discharge-not on home oxygen
Nebulizers as needed
Pulmicort nebulizers continue
Singulair continues
Aspiration precautions per protocol
Chest x-ray 01/01/2024 pending
Patient has history of unprovoked PE/DVT, distant history of prostate cancer 2007
Left lower extremity nonocclusive DVT noted
Echocardiogram with dilated RV, hypokinesis, PA pressure 57. This is new
MR also is moderately, worse than before
No evidence of RV strain per CT chest
Mildly elevated troponin, proBNP noted
Converted to oral anticoagulant-Eliquis
Patient will likely require lifelong anticoagulation
This may be difficult as patient has a history of recurrent falls
RV changes noted per echo.
Consider repeat echo in 3 to 6 months
Complains of left lateral foot and leg pain-not calf pain, negative Homans, Dr. Cordon had examined the right foot on 12/29/2023 and he complained of immediate left foot pain??-On 12/30/2023 complains of right foot pain-and on 12/31/2023 complains of
bilateral foot pain
Uric acid level normal
Foot x-rays 12/29/2023 reviewed-arthritis
I do not believe this is DVT related
Analgesia per primary service
Additional workup and possible orthopedic evaluation per primary team
Monitor leukocytosis
Check chest x-ray
Infectious disease following-correspondence reviewed
Monitor peripheral eosinophilia
Colchicine added for potential gout
Change Protonix to famotidine with eosinophilia
Replace electrolytes
Follow serum sodium
Hydrochlorothiazide on hold
Cardiology following-correspondence reviewed-signed off 12/26/23
Monitor for atrial fibrillation-paroxysmal atrial fibrillation noted on telemetry
Reviewed with Dr. Pedroza
Patient well-known to pulmonary-Dr. EspinalHubmfok-Wjpogial-cxkholybwtbp left
Pulmonary follow-up in 4 to 6 weeks
Subjective Data
-
Date of Service:
Date of Service: January 01, 2024
Chief Complaint: Pulmonary Follow Up and Dyspnea Follow Up
Subjective:
No complaints of worsening shortness of breath, chest pain, chest congestion, increased productive cough, and has vague posterior constant mid chest pressure pain not made worse with movement, palpation, and nonpleuritic, leg pain improved
Review of Systems
General: Other (Per HPI)
Objective Data
Data Reviewed
Vital Signs / I&O:
Vital Signs
Temp Pulse Resp BP Pulse Ox
98.1 F 102 18 128/87 95
01/01/24 08:06 01/01/24 09:12 01/01/24 08:06 01/01/24 09:12 01/01/24 08:06
Intake and Output
12/31/23 01/01/24 01/02/24
06:59 06:59 06:59
Intake Total 600 / 600 480 / 480
Balance 600 / 600 480 / 480
SaO2: 95
Nasal Cannula flow liters per minute: 1
Physical Exam
General: Respiratory Distress (n), Comfortable and Other (NAD, asleep in bed)
HEENT: Normocephalic, Anicteric and Moist Mucous Membranes
Cardiovascular: Regular Rhythm and Murmur (2/6 systolic murmur)
Respiratory: Clear (overall decreased), Wheeze (n), Crackles (n), Rhonchi (n) and Non-Labored Respirations
GI: Soft, Non Distended and Non Tender
Neurology: Awake, Alert and No Motor Deficits (Generally weak)
Skin: Warm, Good Color, Cyanosis (n), Jaundice (n) and Rash (n)
Labs/Micro/Reports
Lab Data
01/01/24 04:48
12/31/23 04:46
--- NOTE | 2024-01-01 12:52 | CM ---
Addendum entered by Raquel Rae 01/01/24 15:47:
Calls placed to facilities of choice to determine bed availability. [facility] not currently anticipate a male bed to be available tomorrow. [facility] also does not anticipate a male bed for tomorrow. [facility] advised that 'beds
are tight', so will not know for sure about availability until tomorrow AM.
Additional referrals sent to [facility], [facility], [facility] and [facility].
CM to follow up in AM to determine available beds for discharge.
Original Note:
CM met with Jay's daughter and son-in-law to discuss discharge planning. SNF is still the preference; [facility], [facility], [facility] [place] are preferred facilities.
CM discussed process for transfer to SNF; need to identify facillity availability once tentative d/c date is known; then can work with insurance company for SNF authorization.
Family provided with CM office contact information and aware to call main office to speak with CM regarding any questions/concerns.
Plan: CM to continue to follow to facilitate discharge to SNF pending bed availability and insurance authorization. Family aware of same.
[2024-01-01] MEDS: TYLENOL 650 MG PO (13:35)
[2024-01-01] MEDS: LOPRESSOR 5 MG IV (13:38)
[2024-01-01] MEDS: FLUSH (NSS) 2 FLUSH IV (13:38)
--- NOTE | 2024-01-01 13:47 | W.PN.HOSP.TC ---
Today's Communication/Plan
-
Etio of elevated WBC unclear
foot aspects most likely is gout, has improved with Colchicine
Assessment / Plan
Assessment / Plan
Assessment:
Acute bilateral PE
Non-Ischemic Myocardial Injury secondary to the above
- CT with bilateral main pulmonary artery, extending into segmental vessels. no heart strain.
- Dopplers: L nonocclusive clot involving the left femoral vein, popliteal vein, peroneal vein, and posterior tibial vein. There is also nonocclusive clot within the visualized proximal profunda femoris vein
- trop peaked at .554
- BNP elevated
- Echo: normal LVEF, but RV enlargement with decreased function (Graves sign). repeat in 3-6 months
- continue supportive care/symptom control
- continue Eliquis, starting with loading dose. Lifelong anticoagulation recommended.
- Cardiology signed off, reviewed with Pulmonary 12/28 as to etiology, does not believe ankle pain related to DVT.
Left ankle pain initially, then rt ankle 12/29. On 12/30 lateral foot is slightly red and warm.
Uric Acid 4.6, but concern this is gout and was started on Colchicine with improvement
Increasing WBC
11.2-->13.6-->17.2-->18.8 with 8.4% Eos. Afebrile
appreciate consult ID. unclear etio. UA is neg, CXR shows only mild pulm edema with small Rt pleural effusion
Left upper back pain
does not sound pleuritic, most consistent with muscular/arthritic
Acute Hyponatremia
- Likely secondary to increased fluid intake over the past 3 days + HCTZ use + increased ADH state secondary to pain, dyspnea, pulmonary process.
- No clear symptoms at this time attributable to Na level.
- Fluid restrict
- continue daily prn IV Lasix today; transitioned to Lasix 20mg daily Thursday 12/28 and stay off HCTZ permanently
- follow Na, 119-->120-->121-->124-->126-->128-->133-->135-->133
New onset parox A.fib
- continue BB for rate control
- continue Eliquis
Benign Hypertension
- Labile BP appears to be stabilizing
BP 124/77
- Follow for changes with PE treatment, pain control, etc.
- Continue metoprolol
- stay off HCTZ
- resumed Losartan and change to oral Lasix
Moderate Persistent Asthma
- No active wheezing appreciated on exam, SpO2 is acceptable on room air.
- Continue budesonide. Albuterol PRN.
- Follow for any changes/new symptoms.
BPH/OAB
History of Prostate Cancer s/p XRT
- Hold OAB medications acutely.
- Bladder scan protocols.
Vomiting likely from morphine side effect
- prn anti-emetics
awaiting decision on SNF
DVT Prophylaxis: Eliquis
Code Status: DNR/DNI
Anticipated Discharge: 24 - 48 hours
Subjective/Interval History
-
Date of Service: January 01, 2024
Foot pain less pronounced since starting Colchicine
Objective Data
-
Labs:
Laboratory Results
01/01/24
04:48
WBC 18.8 H
Hgb 13.9
Hct 39.9
Plt Count 364
Vital Signs:
Vital Signs
Temp Pulse Resp BP Pulse Ox
98 F 105 20 124/76 95
01/01/24 12:03 01/01/24 13:38 01/01/24 12:03 01/01/24 12:03 01/01/24 12:03
I&O
12/31/23 01/01/24 01/02/24
06:59 06:59 06:59
Intake Total 600 / 600 480 / 480
Balance 600 / 600 480 / 480
Review of Systems
-
History Source: Patient and Coordinated Provider
Constitutional: Denies Fever
EENT: Reports No Symptoms Reported
Respiratory: Reports Trouble Breathing (better)
Cardiac: Denies Chest Pain
Abdomen/GI: Reports No Symptoms; Denies Abdominal Pain
Genitourinary: Reports No Symptoms
Musculoskeletal: Denies No Symptoms (now bilateral foot pain, lateral feet, left>Rt, though much less intense since starting Colchicine, also left upper back pain, does not worsen with breathing)
Physical Exam
-
General: Well Developed, Well Nourished and No Apparent Distress; Negative Respiratory Distress
HEENT: Normocephalic, Atraumatic and Moist Mucous Membranes
Respiratory: Clear to Auscultation; Negative Wheezes, Rales or Rhonchi
Cardiac: Regular Rhythm and S1/S2
GI: Soft, Nontender and Nondistended
Musculoskeletal: No Clubbing, No Cyanosis (feet are warm to the touch) and Other (left laterl foot reduced area of slightly red, tender, minimally warm)
Neuro: Awake, Alert and Oriented
[2024-01-01] MEDS: TRICOR 48 MG PO (18:00)
[2024-01-01] MEDS: SINGULAIR 10 MG PO (21:58)
[2024-01-01] MEDS: CLARITIN 10 MG PO (21:58)
[2024-01-02] VITALS (7 sets, daily range): BP systolic 102–135; BP diastolic 46–94; PULSE 101; O2SAT 95; BMI 23.5
[2024-01-02 05:31] LABS: Blood Urea Nitrogen 46 mg/dl (9-20); Carbon Dioxide 26 mmol/L (22-30); Chloride 97 mmol/L (98-107); Estimated Creatinine Clearance 23 ml/min; Glucose 135 mg/dl (70-99); Potassium 4.6 mmol/L (3.5-5.1); Sodium 133 mmol/L (135-145); eGFR 31.51
[2024-01-02 05:46] LABS: Hematocrit 36.6 % (39.0-52.0); Hemoglobin 12.7 g/dL (13.0-18.0); Mean Corp Hgb Conc. 34.7 g/dL (33.0-37.0); Mean Corpuscular Hgb 29.8 pg (27.0-31.0); Mean Corpuscular Volume 85.9 fL (80.0-94.0); Mean Platelet Volume 8.6 fL (7.4-10.4); Platelet Count 388 10^3/uL (130-400); Red Blood Cell Count 4.26 10^6/uL (4.70-6.10); Red Cell Dist. Width 13.1 % (11.5-14.5); White Blood Cell Count 17.8 10^3/uL (4.8-10.8)
[2024-01-02 07:08] LABS: % Basophils 0.7 % (0-2); % Eosinophils 9.5 % (0-6); % Immature Granulocytes 6.3 % (0-0.5); % Lymphocytes 11.6 % (20.5-51.1); % Neutrophils 59.9 % (42.2-75.2); Absolute Basophils 0.1 10^3/uL (0-0.2); Absolute Eosinophils 1.7 10^3/uL (0-0.7); Absolute Immature Granulocytes 1.1 10^3/uL (0-0.05); Absolute Lymphocytes 2.1 10^3/uL (1.2-3.4); Absolute Monocytes 2.1 10^3/uL (0.1-0.6); Absolute Neutrophils 10.6 10^3/uL (1.4-6.5); Nucleated Red Blood Cells % 0 % (-)
[2024-01-02 08:06] LABS: Erythrocyte Sed Rate 56 mm/hour (0-20)
--- NOTE | 2024-01-02 08:32 | W.PN.HOSP.TC ---
Today's Communication/Plan
-
never received Colchicine, but clinically improved symptoms will follow clinically at this time
DARIUS; IVF and hold ARB/Lasix
renally adjust Eliquis
Assessment / Plan
Assessment / Plan
Assessment:
DARIUS, likely pre-renal from hypotension noted 12/31
- start IVF
- hold nephrotoxins
Acute bilateral PE
Non-Ischemic Myocardial Injury secondary to the above
- CT with bilateral main pulmonary artery, extending into segmental vessels. no heart strain.
- Dopplers: L nonocclusive clot involving the left femoral vein, popliteal vein, peroneal vein, and posterior tibial vein. There is also nonocclusive clot within the visualized proximal profunda femoris vein
- trop peaked at .554
- BNP elevated
- Echo: normal LVEF, but RV enlargement with decreased function (Graves sign). repeat in 3-6 months
- continue supportive care/symptom control
- continue Eliquis; renally dosed
- Cardiology signed off
- Pulm following
bilateral foot pain
- reviewed with Pulmonary, not related to DVT
- normal uric acid
- documented that patient was placed on Colchicine for presumed gout but confirmed with RN/Pharmacy and never received Colchicine
- symptoms much improved today, will monitor for now and re-assess if becomes symptomatic again.
Leukocytosis with chronic eosinophilia
- ID evaluated; no infectious etiology
- PPI switched to Famotidine
- OP f/u in CBC in 4-6 weeks
Left upper back pain
- does not sound pleuritic, most consistent with muscular/arthritic
Acute Hyponatremia
- Likely secondary to increased fluid intake over the past 3 days + HCTZ use + increased ADH state secondary to pain, dyspnea, pulmonary process.
- No clear symptoms at this time attributable to Na level.
- Fluid restrict
- continue daily prn IV Lasix today; transitioned to Lasix 20mg daily Thursday 12/28 and stay off HCTZ permanently
- follow Na, 119-->120-->121-->124-->126-->128-->133-->135-->133
New onset parox A.fib
- continue BB for rate control
- continue Eliquis; renally dosed
Benign Hypertension
- Continue metoprolol; may need further titration
- stay off HCTZ; holding Losartan and Lasix for DARIUS
Moderate Persistent Asthma
- No active wheezing appreciated on exam, SpO2 is acceptable on room air.
- Continue budesonide. Albuterol PRN.
- Follow for any changes/new symptoms.
BPH/OAB
History of Prostate Cancer s/p XRT
- Hold OAB medications acutely.
- Bladder scan protocols.
Vomiting likely from morphine side effect
- prn anti-emetics
DVT Prophylaxis: Eliquis
Code Status: DNR/DNI
Anticipated Discharge: 24 - 48 hours
Subjective/Interval History
-
Date of Service: January 02, 2024
he reports improving in ankle pain (never received Colchicine)
denies any SOB
Objective Data
-
Labs:
Laboratory Results
01/02/24
04:42
WBC 17.8 H
Hgb 12.7 L
Hct 36.6 L
Plt Count 388
Sodium 133 L
Potassium 4.6
Chloride 97 L
Carbon Dioxide 26
BUN 46 H
Creatinine 2.0 H
Glucose 135 H
Calcium 10.0
Vital Signs:
Vital Signs
Temp Pulse Resp BP Pulse Ox
97.4 F 102 18 111/73 95
01/02/24 07:30 01/02/24 07:30 01/02/24 07:30 01/02/24 07:30 01/02/24 07:30
I&O
01/01/24 01/02/24 01/03/24
06:59 06:59 06:59
Intake Total 480 / 480 420 / 420
Output Total 300 / 300
Balance 480 / 480 120 / 120
Physical Exam
-
General: No Apparent Distress
HEENT: Normocephalic and Atraumatic
Respiratory: Negative Wheezes or Crackles
Cardiac: Regular Rhythm and S1/S2
GI: Soft
Genito-urinary: No Costovertebral Tender
Musculoskeletal: No Edema
Neuro: AO x 3
Hematologic / Lymphatic: No Lymphadenopathy
Psych: Calm
Data Reviewed
-
Total Time Spent with Patient (in minutes): 47
Labs: Labs Reviewed by me
[2024-01-02] MEDS: MYCOSTATIN ORAL SUSPENSION 5 ML PO ×3 (08:38→21:38)
[2024-01-02] MEDS: PEPCID 20 MG PO (08:38)
[2024-01-02] MEDS: DETROL LA 4 MG PO (08:38)
[2024-01-02] MEDS: ELIQUIS 10 MG PO (08:38)
[2024-01-02] MEDS: ASPIR LOW (ENTERIC COATED) 81 MG PO (08:39)
[2024-01-02] MEDS: TOPROL XL 25 MG PO (08:39)
[2024-01-02] MEDS: NSS 500 IV (08:39)
[2024-01-02] MEDS: ROXICODONE 5 MG PO ×2 (08:45→22:48)
[2024-01-02] MEDS: FLUSH (NSS) 1 FLUSH IV ×2 (08:46→08:47)
[2024-01-02] MEDS: ELIQUIS PO (09:08)
--- NOTE | 2024-01-02 09:55 | W.PN.PUL.V3 ---
Today's Communication / Plan
-
Wean oxygen
Hold diuresis
Monitor renal function
Continue Eliquis
Follow leukocytosis
Assessment
-
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
cancer 2008 status post radiation now presents with acute onset right chest pain, labile blood pressure and fall. CT chest confirmed bilateral PE without RV strain. We are asked to comment on pulmonary process.
Acute bilateral PE
Pleurisy, shortness of breath, labile blood pressure
History of PE/DVT 2018
Unprovoked, on anticoagulation for 4 years
Discontinued per hematology after negative hypercoagulable workup
History of multiple falls in the past
Mild aortic stenosis/mitral regurgitation
Normal RV size/function per echo August 2023
Normal PA pressure
New onset paroxysmal atrial fibrillation
Mild tachycardia
Hyponatremia
SOB
Leukocytosis
Peripheral eosinophilia
DARIUS
Conditions present prior to admission
Recurrent bronchitis
History of asthma
Bronchiectasis, per CT imaging
History of recurrent sinusitis, rhinitis
Obstructive sleep apnea, total index 7.8, noncompliant with CPAP
Nocturnal hypoxia, not on home oxygen
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
Resolved per echo August 2023
History of prostate cancer radiation therapy 2008
DNR
Plan
Respiratory status improved
Supplemental oxygen-attempt to wean
Assess discharge supplemental oxygen needs prior to discharge-not on home oxygen
Nebulizers as needed
Pulmicort nebulizers continue
Singulair continues
Aspiration precautions per protocol
Chest x-ray 01/01/2024-mild pulm edema and right effusion-small
Patient has history of unprovoked PE/DVT, distant history of prostate cancer 2007
Left lower extremity nonocclusive DVT noted
Echocardiogram with dilated RV, hypokinesis, PA pressure 57. This is new
MR also is moderately, worse than before
No evidence of RV strain per CT chest
Mildly elevated troponin, proBNP noted
Converted to oral anticoagulant-Eliquis
Patient will likely require lifelong anticoagulation
This may be difficult as patient has a history of recurrent falls
RV changes noted per echo.
Consider repeat echo in 3 to 6 months
Complains of left lateral foot and leg pain-not calf pain, negative Homans, Dr. Cordon had examined the right foot on 12/29/2023 and he complained of immediate left foot pain??-On 12/30/2023 complains of right foot pain-and on 12/31/2023 complains of
bilateral foot pain
Uric acid level normal
Foot x-rays 12/29/2023 reviewed-arthritis
I do not believe this is DVT related
Analgesia per primary service
Additional workup and possible orthopedic evaluation per primary team
Monitor leukocytosis-still elevated-patient nontoxic
Repeat chest x-ray 01/01/2024 summarized above-mild CHF
Infectious disease following-correspondence reviewed
Monitor peripheral eosinophilia
Colchicine added for potential gout-never received a dose and leg pain improved
Change Protonix to famotidine with eosinophilia
Replace electrolytes
Follow serum sodium
Hydrochlorothiazide on hold
Cardiology following-correspondence reviewed-signed off 12/26/23
Monitor for atrial fibrillation-paroxysmal atrial fibrillation noted on telemetry
Renal function worsening-if continues to worsen consider nephrology evaluation
Reviewed with Dr. Lopez
Patient well-known to pulmonary-Dr. EspinalAdbtwyg-Tysqsdyl-hhvlnznlpdmm left
Pulmonary follow-up in 4 to 6 weeks
Subjective Data
-
Date of Service:
Date of Service: January 02, 2024
Chief Complaint: Pulmonary Follow Up and Dyspnea Follow Up
Subjective:
Intermittent back pain, foot pain improved, no chest pain, productive cough
Review of Systems
General: Other (Per HPI)
Objective Data
Data Reviewed
Vital Signs / I&O:
Vital Signs
Temp Pulse Resp BP Pulse Ox
97.4 F 102 18 111/73 95
01/02/24 07:30 01/02/24 08:39 01/02/24 07:30 01/02/24 08:39 01/02/24 07:30
Intake and Output
01/01/24 01/02/24 01/03/24
06:59 06:59 06:59
Intake Total 480 / 480 420 / 420
Output Total 300 / 300
Balance 480 / 480 120 / 120
SaO2: 95
Nasal Cannula flow liters per minute: 1
Physical Exam
General: Respiratory Distress (n), Comfortable and Other (NAD, asleep in bed)
HEENT: Normocephalic, Anicteric and Moist Mucous Membranes
Cardiovascular: Regular Rhythm and Murmur (2/6 systolic murmur)
Respiratory: Clear (overall decreased), Wheeze (n), Crackles (n), Rhonchi (n) and Non-Labored Respirations
GI: Soft, Non Distended and Non Tender
Neurology: Awake, Alert and No Motor Deficits (Generally weak)
Skin: Warm, Good Color, Cyanosis (n), Jaundice (n) and Rash (n)
Labs/Micro/Reports
Lab Data
01/02/24 04:42
01/02/24 04:42
--- NOTE | 2024-01-02 13:24 | CM ---
Addendum entered by Raquel Rae 01/02/24 15:07:
Bed offers received from [facility], [facility], and [facility] (offered since [facility] does not have availability). left for Jay's daughter to provide these options.
The following facilities are unable to accomodate transfer this weekend: [facility], [facility], [facility], [facility]. [facility] did not respond, however I did leave a for Meeta requesting a call back.
will continue to follow for placement anticipated for Thursday, January 04, 2024. Updated therapy notes and SNF authorization will be required.
Original Note:
[facility] SNF referral updated and sent to [facility], [facility], [facility], [facility], [facility], [facility], [facility], [facility] [place] and [facility].
Discharge anticipated for 01/04/2024. Will likely need updated therapy notes prior to obtaining authorization.
[2024-01-02] MEDS: MYCOSTATIN ORAL SUSPENSION PO (13:30)
--- NOTE | 2024-01-02 14:39 | W.PN.ID1 ---
Date of Service
Date of Service: January 02, 2024
Today's Communication
hold nonessential meds
Assessment / Plan
A&P
Leukocytosis
DVT/PE
Bronchiectasis
Prostate Cancer s/p XRT
Eosinophilia - AEC now 1.7
- appreciate hospitalist clarifying that patient did not have colchicine
- given progressive eosinophilia we held nonessential meds, reviewed with hospitalist - eosinophilia may be contributing to leukocytosis
- recheck eosinophils in a few weeks outpatient with PCP, if persistent can schedule ID follow up
Chief Complaint
-: Leukocytosis
Subjective / Review of Systems
afebrile
no complaints beyond malaise, no appetite
no ankle pain
Vital Signs / Physical Exam
Vital Signs
Vital Signs
Temp Pulse Resp BP Pulse Ox
97.3 F 101 18 108/68 95
01/02/24 11:03 01/02/24 11:03 01/02/24 11:03 01/02/24 11:03 01/02/24 09:55
Physical Exam
Constitutional: No Acute Distress
Cardiovascular: Regular Rate and S1/S2; Negative Murmur or Rub
Pulmonary: Clear and Symmetric; Negative Wheezes or Rales
Gastrointestinal: Soft, Non Tender, Non Distended and Normal Bowel Sounds
Skin: Warm and Dry; Negative Rash or Jaundice
Objective Data
Lab Data
Lab Results
01/02/24 04:42
01/02/24 04:42
ESR 56 mm/hour (0-20) H 01/02/24 04:42
PT 16.3 Sec (11.4-14.6) H 12/25/23 08:29
INR 1.30 12/25/23 08:29
APTT 75.7 Sec (23.4-35.0) H 12/26/23 06:34
Estimated Creat Clear 23 ml/min 01/02/24 04:42
Total Bilirubin 2.0 mg/dl (0.2-1.3) H 12/24/23 23:45
AST 51 U/L (17-59) 12/24/23 23:45
ALT 20 U/L (0-50) 12/24/23 23:45
Alkaline Phosphatase 95 U/L (38-126) 12/24/23 23:45
Most recent labs reviewed.
Care Review
Plan reviewed with: Physician (Dr Lopez - nonessential meds)
[2024-01-02] MEDS: ELIQUIS 2.5 MG PO (20:09)
[2024-01-02] MEDS: TYLENOL 650 MG PO (20:11)
[2024-01-03 03:43] VITALS: BP 106/70
[2024-01-03 06:00] VITALS: BMI 23.8
[2024-01-03 06:10] LABS: % Basophils 0.5 % (0-2); % Eosinophils 6.7 % (0-6); % Immature Granulocytes 4.1 % (0-0.5); % Lymphocytes 7.9 % (20.5-51.1); % Monocytes 12.4 % (1.7-9.3); % Neutrophils 68.4 % (42.2-75.2); Absolute Basophils 0.1 10^3/uL (0-0.2); Absolute Eosinophils 1.2 10^3/uL (0-0.7); Absolute Immature Granulocytes 0.7 10^3/uL (0-0.05); Absolute Lymphocytes 1.4 10^3/uL (1.2-3.4); Absolute Monocytes 2.2 10^3/uL (0.1-0.6); Absolute Neutrophils 12.2 10^3/uL (1.4-6.5); Hematocrit 35.9 % (39.0-52.0); Hemoglobin 12.4 g/dL (13.0-18.0); Mean Corp Hgb Conc. 34.5 g/dL (33.0-37.0); Mean Corpuscular Hgb 29.7 pg (27.0-31.0); Mean Corpuscular Volume 85.9 fL (80.0-94.0); Mean Platelet Volume 8.7 fL (7.4-10.4); Nucleated Red Blood Cells % 0 % (-); Platelet Count 373 10^3/uL (130-400); Red Blood Cell Count 4.18 10^6/uL (4.70-6.10); White Blood Cell Count 17.9 10^3/uL (4.8-10.8)
[2024-01-03 06:28] LABS: Blood Urea Nitrogen 45 mg/dl (9-20); Carbon Dioxide 25 mmol/L (22-30); Chloride 100 mmol/L (98-107); Estimated Creatinine Clearance 29 ml/min; Glucose 129 mg/dl (70-99); Potassium 4.4 mmol/L (3.5-5.1); Sodium 134 mmol/L (135-145); eGFR 41.19
[2024-01-03 07:35] VITALS: BP 141/88
[2024-01-03] MEDS: TOPROL XL 25 MG PO (08:59)
[2024-01-03] MEDS: ELIQUIS 2.5 MG PO ×2 (08:59→20:27)
[2024-01-03] MEDS: MYCOSTATIN ORAL SUSPENSION 5 ML PO ×3 (08:59→17:25)
[2024-01-03] MEDS: ASPIR LOW (ENTERIC COATED) 81 MG PO (08:59)
--- NOTE | 2024-01-03 10:19 | CM ---
Patient with Dx DARIUS, Acute bilateral PE. Room air. PT & OT recommend skilled rehab.
Message from Dr Lopez; the patient's creatinine is not yet at his baseline. He will probably be ready for d/c on 01/04.
Spoke with patient's daughter Shauna laguna; she understands patient will not be medically ready for d/c until 01/04. Her first choice SNF is [facility], 2nd choice [facility], 3rd choice [facility], 4th choice [facility]. She is
aware that [facility] said that they will likely have a bed, and will know definitively on Friday. Daughter aware insurance auth will be needed.
Spoke with [facility]; currently there are 3 beds available, however she has not been able to reach the Internal [facility] person to confirm, and will know more on 01/04.
Plan follow up with [facility] Thursday 01/04 for bed availability.
--- NOTE | 2024-01-03 10:38 | W.PN.HOSP.TC ---
Today's Communication/Plan
-
repeat AM BMP
dc planning to SNF
Assessment / Plan
Assessment / Plan
Assessment:
DARIUS, likely pre-renal from hypotension noted 12/31
- continue IVF
- hold nephrotoxins
Acute bilateral PE
Non-Ischemic Myocardial Injury secondary to the above
- CT with bilateral main pulmonary artery, extending into segmental vessels. no heart strain.
- Dopplers: L nonocclusive clot involving the left femoral vein, popliteal vein, peroneal vein, and posterior tibial vein. There is also nonocclusive clot within the visualized proximal profunda femoris vein
- trop peaked at .554
- BNP elevated
- Echo: normal LVEF, but RV enlargement with decreased function (Graves sign). repeat in 3-6 months
- continue supportive care/symptom control
- continue Eliquis; renally dosed
- Cardiology signed off
- Pulm following
bilateral foot pain
- reviewed with Pulmonary, not related to DVT
- normal uric acid
- documented that patient was placed on Colchicine for presumed gout but confirmed with RN/Pharmacy and never received Colchicine
- symptoms much improved today and continues to be asymptomatic at present, will monitor for now and re-assess if becomes symptomatic again.
Leukocytosis with chronic eosinophilia
- ID evaluated; no infectious etiology
- PPI switched to Famotidine and other non-essential meds stopped
- OP f/u in CBC in 4-6 weeks
Left upper back pain
- does not sound pleuritic, most consistent with muscular/arthritic
Acute Hyponatremia
- Likely secondary to increased fluid intake over the past 3 days + HCTZ use + increased ADH state secondary to pain, dyspnea, pulmonary process.
- No clear symptoms at this time attributable to Na level.
- Fluid restrict
- continue daily prn IV Lasix today; transitioned to Lasix 20mg daily Thursday 12/28 and stay off HCTZ permanently
- follow Na, 119-->120-->121-->124-->126-->128-->133-->135-->134
New onset parox A.fib
- continue BB for rate control
- continue Eliquis; renally dosed
Benign Hypertension
- Continue metoprolol; may need further titration
- stay off HCTZ; holding Losartan and Lasix for DARIUS
Moderate Persistent Asthma
- No active wheezing appreciated on exam, SpO2 is acceptable on room air.
- Continue budesonide. Albuterol PRN.
- Follow for any changes/new symptoms.
BPH/OAB
History of Prostate Cancer s/p XRT
- Hold OAB medications acutely.
- Bladder scan protocols.
Vomiting likely from morphine side effect
- prn anti-emetics
DVT Prophylaxis: Eliquis
Code Status: DNR/DNI
Anticipated Discharge: 24 - 48 hours
Subjective/Interval History
-
Date of Service: January 03, 2024
denies any new complaints
Objective Data
-
Labs:
Laboratory Results
01/03/24
05:37
WBC 17.9 H
Hgb 12.4 L
Hct 35.9 L
Plt Count 373
Sodium 134 L
Potassium 4.4
Chloride 100
Carbon Dioxide 25
BUN 45 H
Creatinine 1.6 H
Glucose 129 H
Calcium 10.0
Vital Signs:
Vital Signs
Temp Pulse Resp BP Pulse Ox
97.5 F 91 20 141/88 94
01/03/24 07:35 01/03/24 07:35 01/03/24 07:35 01/03/24 07:35 01/03/24 07:35
I&O
01/02/24 01/03/24 01/04/24
06:59 06:59 06:59
Intake Total 420 / 420 960 / 960 600 / 600
Output Total 300 / 300
Balance 120 / 120 960 / 960 600 / 600
Physical Exam
-
General: No Apparent Distress
HEENT: Normocephalic and Atraumatic
Respiratory: Negative Wheezes
Cardiac: Regular Rhythm and S1/S2
GI: Soft
Genito-urinary: No Costovertebral Tender
Musculoskeletal: No Edema
Neuro: AO x 3
Psych: Calm
Data Reviewed
-
Total Time Spent with Patient (in minutes): 42
Labs: Labs Reviewed by me
--- NOTE | 2024-01-03 11:07 | W.PN.PUL3 ---
Today's Communication / Plan
-
Up OOB as tolerated
PO lasix
Monitor renal function
Continue Eliquis
Follow leukocytosis and trend absolute eos
Outpatient follow up with [facility] office will be arranged
Assessment
-
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
cancer 2008 status post radiation now presents with acute onset right chest pain, labile blood pressure and fall. CT chest confirmed bilateral PE without RV strain. We are asked to comment on pulmonary process.
Impression:
Acute bilateral PE with RV strain
Left lower extremity acute nonocclusive DVT
History of PE/DVT 2018
Unprovoked, on anticoagulation for 4 years
Discontinued per hematology after negative hypercoagulable workup
History of multiple falls in the past
Mild aortic stenosis/mitral regurgitation
Normal RV size/function per echo August 2023
Normal PA pressure
New onset paroxysmal atrial fibrillation
Mild tachycardia
Hyponatremia
SOB
Leukocytosis
Hypereosinophilia
DARIUS
Conditions present prior to admission
Recurrent bronchitis
History of asthma
Bronchiectasis, per CT imaging
History of recurrent sinusitis, rhinitis
Obstructive sleep apnea, total index 7.8, noncompliant with CPAP
Nocturnal hypoxia, not on home oxygen
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
Resolved per echo August 2023
History of prostate cancer radiation therapy 2008
DNR
Plan
Respiratory status improved and he is on room air breathing comfortably
Keep SpO2 >90-94%
Assess discharge supplemental oxygen needs prior to discharge via ambulatory pulse ox-not on home oxygen
Nebulizers as needed
Aspiration precautions per protocol
Chest x-ray 01/01/2024-mild pulm edema and right effusion-small
Patient has history of unprovoked PE/DVT, distant history of prostate cancer 2007
Left lower extremity nonocclusive DVT noted
Echocardiogram with dilated RV, hypokinesis, PA pressure 57. This is new
MR also is moderately, worse than before
RV: LV ratio is >1 on CTA chest
Mildly elevated troponin, proBNP noted
Converted to oral anticoagulant-Eliquis
Patient will likely require lifelong anticoagulation
This may be difficult as patient has a history of recurrent falls
Recommend outpatient hematology visit for hypercoagulable workup and assistance with AC treatment duration
RV changes noted per echo.
Repeat echo in 3 to 6 months
Complains of left lateral foot and leg pain-not calf pain, negative Homans sign, Dr. Cordon had examined the right foot on 12/29/2023 and he complained of immediate left foot pain??-On 12/30/2023 complains of right foot pain-and on 12/31/2023
complains of bilateral foot pain
Uric acid level normal
Foot x-rays 12/29/2023 reviewed-arthritis
I do not believe this is DVT related
Analgesia per primary service
Additional workup and possible orthopedic evaluation per primary team
Monitor leukocytosis-still elevated-patient nontoxic
Repeat chest x-ray 01/01/2024 summarized above-mild CHF
Infectious disease following-correspondence reviewed
Monitor peripheral eosinophilia
Colchicine added for potential gout-never received a dose and leg pain improved
Last dose of pantoprazole was 01/01/2024
Replace electrolytes with K>4, Mg>2
Follow serum sodium
Hydrochlorothiazide on hold
Cardiology following-correspondence reviewed-signed off 12/26/23
Monitor for atrial fibrillation-paroxysmal atrial fibrillation noted on telemetry
Trend sCr; if worsens then consult nephrology
Reviewed with Dr. Lopez
Patient well-known to pulmonary-Dr. EspinalYdirmfi-Zbapkzsu-bsiwipktgtep left
Pulmonary follow-up in 4 to 6 weeks
Pulmonary service will continue to follow along while he remains hospitalized.
Total time spent today was 35 minutes for this encounter. Time includes reviewing laboratory test/imaging results, reviewing pertinent medical records, obtaining and reviewing medical history, performing an appropriate exam, ordering medications,
tests and procedures. Time also includes documentation of this encounter, coordinating patient care and communicating with other healthcare professionals. Total time does not include separately billed tests performed on this date of service.
Subjective Data
-
Date of Service:
Date of Service: January 03, 2024
Chief Complaint: Pulmonary Follow Up and Dyspnea Follow Up
Subjective:
Seen today at bedside. He feels well. On room air breathing comfortably. Denies chest pain, ZUÑIGA, abdominal pain, fevers or chills.
Review of Systems
General: Other (Negative unless mentioned above)
Objective Data
Data Reviewed
Vital Signs / I&O / Oxygen:
Vital Signs
Temp Pulse Resp BP Pulse Ox
97.5 F 91 20 141/88 94
01/03/24 07:35 01/03/24 07:35 01/03/24 07:35 01/03/24 07:35 01/03/24 07:35
Intake and Output
01/02/24 01/03/24 01/04/24
06:59 06:59 06:59
Intake Total 420 / 420 960 / 960 600 / 600
Output Total 300 / 300
Balance 120 / 120 960 / 960 600 / 600
SaO2 94
Nasal Cannula flow liters per 1
minute
Physical Exam
General: Respiratory Distress (n), Comfortable and Other (NAD)
HEENT: Normocephalic, Anicteric and Moist Mucous Membranes
Cardiovascular: S1-S2 and Murmur (2/6 systolic murmur)
Respiratory: Clear (overall decreased), Wheeze (n), Crackles (n), Rhonchi (n) and Non-Labored Respirations
GI: Soft, Non Distended, Non Tender and Normal Bowel Sounds
Neurology: Awake, Alert and Tremors (n)
Skin: Warm, Dry, Cyanosis (n), Jaundice (n) and Rash (n)
Labs/Micro/Reports
Lab Data
01/03/24 05:37
01/03/24 05:37
[2024-01-03 11:35] VITALS: BP 101/62
[2024-01-03] MEDS: NSS 500 IV (11:43)
[2024-01-03 15:25] VITALS: BP 114/68
[2024-01-03 19:29] VITALS: BP 150/94
[2024-01-03] MEDS: LOPRESSOR 5 MG IV (20:56)
[2024-01-03] MEDS: TIGAN 200 MG IM (21:34)
[2024-01-03 23:15] VITALS: BP 145/101
--- NOTE | 2024-01-03 23:16 | PTCARENOTE ---
Pt reports nausea throughout the day, Pt has 3 unmeasurable emesis of green color. Assessment of the pt reveals distended Abd, hypoactive bowel sounds and tender to the touch. STAFFING [employer]PERATIONS MANAGER (Samantha, So Ri (Roybn) was notified about pt's change in condition and
need for Abd Xray. Pt was given IM Tigan and taken to XRay. Up on coming to the floor, pt had a large unmeasurable green color emesis. [place] Sump NG tube size 18 was inserted at low intermittent suction as per order and drains 280mL of maroon/green
fluid immediately. Pt tolerated the procedure well and expresses relief 'feel much better'. Pt was able to sleep comfortably following NG Tube insertion. Will continue to monitor the pt.
[2024-01-04] MEDS: MYCOSTATIN ORAL SUSPENSION PO ×5 (00:05→21:27)
--- NOTE | 2024-01-04 02:54 | W.PN.UPDATE ---
Update Note
Progress Note Update
Notified by nursing patient having nausea and multiple vomiting. Upon assessment, patient's abdomen firm, distended, minimal bowel sound. Patient RUBY so difficult to get information. Per nursing documentation patient's last BM 3 days ago. Rx
Abdominal xray, IM Tigan, NPO, NG tube placed by nursing - draining brown/green bile.
[2024-01-04 03:27] VITALS: BP 163/101
[2024-01-04] MEDS: LOPRESSOR 5 MG IV ×4 (04:21→23:53)
[2024-01-04 04:59] VITALS: BMI 23.3
[2024-01-04 07:34] LABS: % Basophils 0.4 % (0-2); % Eosinophils 0.1 % (0-6); % Lymphocytes 4.8 % (20.5-51.1); % Monocytes 7.6 % (1.7-9.3); % Neutrophils 84.1 % (42.2-75.2); Absolute Basophils 0.1 10^3/uL (0-0.2); Absolute Immature Granulocytes 0.7 10^3/uL (0-0.05); Absolute Lymphocytes 1.1 10^3/uL (1.2-3.4); Absolute Monocytes 1.7 10^3/uL (0.1-0.6); Hematocrit 40.9 % (39.0-52.0); Hemoglobin 13.9 g/dL (13.0-18.0); Mean Corpuscular Hgb 29.1 pg (27.0-31.0); Mean Corpuscular Volume 85.6 fL (80.0-94.0); Mean Platelet Volume 8.8 fL (7.4-10.4); Nucleated Red Blood Cells % 0 % (-); Platelet Count 443 10^3/uL (130-400); Red Blood Cell Count 4.78 10^6/uL (4.70-6.10); Red Cell Dist. Width 12.9 % (11.5-14.5); White Blood Cell Count 22.6 10^3/uL (4.8-10.8)
[2024-01-04 07:43] LABS: Blood Urea Nitrogen 46 mg/dl (9-20); Calcium 10.6 mg/dl (8.4-10.2); Carbon Dioxide 28 mmol/L (22-30); Chloride 97 mmol/L (98-107); Estimated Creatinine Clearance 29 ml/min; Glucose 146 mg/dl (70-99); Potassium 5.5 mmol/L (3.5-5.1); Sodium 138 mmol/L (135-145); eGFR 41.19
[2024-01-04 07:46] VITALS: BP 162/87
--- NOTE | 2024-01-04 08:42 | W.PN.HOSP.TC ---
Today's Communication/Plan
-
continue NGT
GI consult
meds switched to IV forms
IVF to match I/Os
Family updated
Assessment / Plan
Assessment / Plan
Assessment:
Small bowel ileus
- suspect multifactorial from pain meds, immobility, constipation
- Obs series: progressed findings suggesting moderate probable small bowel ileus. Developing obstruction cannot be completely excluded. Moderate fecal material throughout the colon.
- NGT placed, continue for decompression
- hold Narcs
- prn Anti-emetics (Tigan due to prolonged QTc)
- IVF to match I/Os
- GI consulted
DARIUS, likely pre-renal from hypotension noted 12/31
- Cr improved from 2.0 to 1.6
- IVF to match I/Os
- hold nephrotoxins
Acute bilateral PE
Non-Ischemic Myocardial Injury secondary to the above
- CT with bilateral main pulmonary artery, extending into segmental vessels. no heart strain.
- Dopplers: L nonocclusive clot involving the left femoral vein, popliteal vein, peroneal vein, and posterior tibial vein. There is also nonocclusive clot within the visualized proximal profunda femoris vein
- trop peaked at .554
- BNP elevated
- Echo: normal LVEF, but RV enlargement with decreased function (Graves sign). repeat in 3-6 months
- continue supportive care/symptom control
- holding Eliquis while NGT in place; IV heparin protocol started
- Cardiology signed off
- Pulm signed off
bilateral foot pain
- reviewed with Pulmonary, not related to DVT
- normal uric acid
- documented that patient was placed on Colchicine for presumed gout but confirmed with RN/Pharmacy and never received Colchicine
- symptoms much improved today and continues to be asymptomatic at present, will monitor for now and re-assess if becomes symptomatic again.
Leukocytosis with chronic eosinophilia
- ID evaluated; no infectious etiology
- PPI switched to Famotidine and other non-essential meds stopped
- OP f/u in CBC in 4-6 weeks
Left upper back pain
- does not sound pleuritic, most consistent with muscular/arthritic
Acute Hyponatremia
- Likely secondary to increased fluid intake over the past 3 days + HCTZ use + increased ADH state secondary to pain, dyspnea, pulmonary process.
- No clear symptoms at this time attributable to Na level.
- Fluid restrict
- continue daily prn IV Lasix today; transitioned to Lasix 20mg daily Thursday 12/28 and stay off HCTZ permanently
- follow Na, 119-->120-->121-->124-->126-->128-->133-->135-->134
New onset parox A.fib
- continue BB for rate control
- continue Eliquis; renally dosed
Benign Hypertension
- Continue metoprolol; may need further titration
- stay off HCTZ; holding Losartan and Lasix for DARIUS
Moderate Persistent Asthma
- No active wheezing appreciated on exam, SpO2 is acceptable on room air.
- Continue budesonide. Albuterol PRN.
- Follow for any changes/new symptoms.
BPH/OAB
History of Prostate Cancer s/p XRT
- Hold OAB medications acutely.
- Bladder scan protocols.
Vomiting likely from morphine side effect
- prn anti-emetics
DVT Prophylaxis: Eliquis
Code Status: DNR/DNI
Anticipated Discharge: > 48 hours
Subjective/Interval History
-
Date of Service: January 04, 2024
overnight events noted, firm abdomen and nausea/vomiting
OBs series showed ileus, NGT placed, 500 cc out since 2 AM
Patient reports no pain this morning, reports abdomen less firm
reports dry mouth
Objective Data
-
Labs:
Laboratory Results
01/04/24 01/04/24
06:52 08:26
WBC 22.6 H
Hgb 13.9
Hct 40.9
Plt Count 443 H
APTT Pending
Sodium 138
Potassium 5.5 H
Chloride 97 L
Carbon Dioxide 28
BUN 46 H
Creatinine 1.6 H
Glucose 146 H
Calcium 10.6 H
Vital Signs:
Vital Signs
Temp Pulse Resp BP Pulse Ox
98.0 F 106 18 163/101 96
01/04/24 03:27 01/04/24 04:21 01/04/24 03:27 01/04/24 04:21 01/04/24 03:27
I&O
01/03/24 01/04/24 01/05/24
06:59 06:59 06:59
Intake Total 960 / 960 1130 / 1130
Output Total 450 / 450
Balance 960 / 960 680 / 680
Physical Exam
-
General: Appears Chronically Ill; Negative Pain
HEENT: Normocephalic and Atraumatic
Respiratory: Clear to Auscultation; Negative Wheezes or Rales
Cardiac: Regular Rhythm and S1/S2
GI: Nontender and Distended (slightly)
Genito-urinary: No Costovertebral Tender
Neuro: AO x 3
Psych: Calm
Data Reviewed
-
Total Time Spent with Patient (in minutes): 46
Labs: Labs Reviewed by me
[2024-01-04] MEDS: ELIQUIS PO (09:16)
[2024-01-04] MEDS: ASPIR LOW (ENTERIC COATED) PO (09:16)
[2024-01-04] MEDS: TOPROL XL PO (09:17)
[2024-01-04] MEDS: NSS 1000 IV (09:25)
[2024-01-04] MEDS: HEPARIN 25000 UNITS/250 ML IV (09:35)
[2024-01-04 10:14] LABS: APTT 47.8 Sec (23.4-35.0)
--- NOTE | 2024-01-04 10:47 | W.PN.PUL3 ---
Today's Communication / Plan
-
Up OOB as tolerated
PO lasix
Monitor renal function
Continue Eliquis
Follow leukocytosis and trend absolute eos
NGT to LIWS
Outpatient follow up with [facility] office will be arranged
Assessment
-
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
cancer 2008 status post radiation now presents with acute onset right chest pain, labile blood pressure and fall. CT chest confirmed bilateral PE without RV strain. We are asked to comment on pulmonary process.
Impression:
Acute bilateral PE with RV strain
Left lower extremity acute nonocclusive DVT
History of PE/DVT 2018
Unprovoked, on anticoagulation for 4 years
Discontinued per hematology after negative hypercoagulable workup
History of multiple falls in the past
Mild aortic stenosis/mitral regurgitation
Normal RV size/function per echo August 2023
Normal PA pressure
New onset paroxysmal atrial fibrillation
Mild tachycardia
Hyponatremia
SOB
Leukocytosis
Hypereosinophilia
DARIUS
Nausea/vomiting with abdominal stanchion s/p NGT (placed earlier this morning on 01/03)
Conditions present prior to admission
Recurrent bronchitis
History of asthma
Bronchiectasis, per CT imaging
History of recurrent sinusitis, rhinitis
Obstructive sleep apnea, total index 7.8, noncompliant with CPAP
Nocturnal hypoxia, not on home oxygen
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
Resolved per echo August 2023
History of prostate cancer radiation therapy 2008
DNR
Plan
Respiratory status improved and he is on room air breathing comfortably
Keep SpO2 >90-94%
Assess discharge supplemental oxygen needs prior to discharge via ambulatory pulse ox-not on home oxygen
Nebulizers as needed
Aspiration precautions per protocol
Chest x-ray 01/01/2024-mild pulm edema and right effusion-small
Patient has history of unprovoked PE/DVT, distant history of prostate cancer 2007
Left lower extremity nonocclusive DVT noted
Echocardiogram with dilated RV, hypokinesis, PA pressure 57. This is new
MR also is moderately, worse than before
RV: LV ratio is >1 on CTA chest
Mildly elevated troponin, proBNP noted
Converted to oral anticoagulant-Eliquis
Patient will likely require lifelong anticoagulation
This may be difficult as patient has a history of recurrent falls
Recommend outpatient hematology visit for hypercoagulable workup and assistance with AC treatment duration
RV changes noted per echo.
Repeat echo in 3 to 6 months
Complains of left lateral foot and leg pain-not calf pain, negative Homans sign, Dr. Cordon had examined the right foot on 12/29/2023 and he complained of immediate left foot pain??-On 12/30/2023 complains of right foot pain-and on 12/31/2023
complains of bilateral foot pain
Uric acid level normal
Foot x-rays 12/29/2023 reviewed-arthritis
I do not believe this is DVT related
Analgesia per primary service
Additional workup and possible orthopedic evaluation per primary team
Monitor leukocytosis-still elevated-patient nontoxic
Repeat chest x-ray 01/01/2024 summarized above-mild CHF
Infectious disease following-correspondence reviewed
Monitor peripheral eosinophilia
Colchicine added for potential gout-never received a dose and leg pain improved
Last dose of pantoprazole was 01/01/2024
Replace electrolytes with K>4, Mg>2
Follow serum sodium
On gentle IVF with NS 0.9% at 50cc/hr
Hydrochlorothiazide on hold
Cardiology following-correspondence reviewed-signed off 12/26/23
Monitor for atrial fibrillation-paroxysmal atrial fibrillation noted on telemetry
Trend sCr; if worsens then consult nephrology
Keep NPO with NGT to LIWS
- Monitor NGT output
Reviewed with Dr. Lopez
Patient well-known to pulmonary-Dr. EspinalZerzhzf-Efhycylh-yooatwexefqu left
Pulmonary follow-up in 4 to 6 weeks
Pulmonary service will continue to follow along while he remains hospitalized.
Total time spent today was 35 minutes for this encounter. Time includes reviewing laboratory test/imaging results, reviewing pertinent medical records, obtaining and reviewing medical history, performing an appropriate exam, ordering medications,
tests and procedures. Time also includes documentation of this encounter, coordinating patient care and communicating with other healthcare professionals. Total time does not include separately billed tests performed on this date of service.
Subjective Data
-
Date of Service:
Date of Service: January 04, 2024
Chief Complaint: Pulmonary Follow Up and Dyspnea Follow Up
Subjective:
Seen and evaluated today at bedside. Nausea and vomiting overnight with firm/distended abdomen. NG tube placed by nursing staff draining brown/green bile. NG tube remains in place this morning. He is on room air breathing comfortably. He denies
SOB, ZUÑIGA, fevers or chills. Patient's daughter at bedside � all questions were answered.
Review of Systems
General: Other (Negative unless mentioned above)
Objective Data
Data Reviewed
Vital Signs / I&O / Oxygen:
Vital Signs
Temp Pulse Resp BP Pulse Ox
97.9 F 105 24 162/87 96
01/04/24 07:46 01/04/24 07:46 01/04/24 07:46 01/04/24 07:46 01/04/24 07:46
Intake and Output
01/03/24 01/04/24 01/05/24
06:59 06:59 06:59
Intake Total 960 / 960 1130 / 1130
Output Total 450 / 450
Balance 960 / 960 680 / 680
SaO2 96
Nasal Cannula flow liters per 1
minute
Physical Exam
General: Respiratory Distress (n), Comfortable and Other (NAD)
HEENT: Normocephalic, Anicteric and Moist Mucous Membranes
Cardiovascular: S1-S2 and Murmur (2/6 systolic murmur)
Respiratory: Clear (overall decreased), Wheeze (n), Crackles (n), Rhonchi (n), Non-Labored Respirations and Other (Grossly diminished breath sounds bilaterally)
GI: Soft, Distended, Non Tender, NG Tube and Other (Hypoactive bowel sounds)
Neurology: Awake, Alert and Tremors (n)
Skin: Warm, Dry, Cyanosis (n), Jaundice (n) and Rash (n)
Labs/Micro/Reports
Lab Data
01/04/24 06:52
Laboratory Results
01/04/24
09:43
APTT 47.8 H
[2024-01-04 11:07] VITALS: BP 144/85
--- NOTE | 2024-01-04 12:23 | CON.GI ---
Consultation
-
Date/Time Consultation Requested: 01/04/24 at 9am
Date/Time Consultation Performed: 01/04/24 at 11:15 am
Requesting Provider: Jessica
Performing Provider: bill
Reason for Consultation: n/v
Medical History
Chief Complaint / HPI
Chief Complaint: nausea/vomiting
History of Present Illness:
This patient is an 88-year-old man with a history 0f PE, DVT in the past who had been on anticoagulation with Eliquis. He was admitted on 12/24 and was found to have pulmonary embolism. He was on Eliquis until yesterday when he started having some
nausea and vomiting. He did have an abdominal x-ray that did show probable ileus of the small bowel. He does have an NG tube in that has dark bilious brown emesis. As per his family he has not had this in the past. He does have a remote history
of ulcers but that is over 50 years ago. He did have 2 endoscopies in 2020 and 2021 which showed short segment Tapia's esophagus without erosions or ulcers. Currently as per his family in the room and the patient does not have abdominal pain and
has not had any bowel movements.
Past Medical History
Past Medical History: Other (Prostate cancer, hypertension, asthma, DVT and PE in 2019, cardiomyopathy)
Past Surgical History: Other (Hernia)
Social History
Tobacco: Non-Smoker
Family History
Family History: Reviewed & Not Pertinent
Allergies / Home Medications
Allergy/AdvReac Type Severity Reaction Status Date / Time
No Known Allergies Allergy Verified 01/06/23 11:50
�Medication �Instructions �Recorded
fenofibrate nanocrystallized 48 mg 48 mg PO QPM High cholesterol 10/05/12
tablet
mzutcxmv-vfr-ajkwn acid 0.4 1 ea PO DAILY Supplement 10/05/12
mg-lycopene 300 mcg-lutein 250 mcg
tablet (Centrum Silver)
losartan 50 mg tablet 100 mg PO DAILY Blood pressure 09/09/18
metoprolol succinate 50 mg 50 mg PO DAILY Heart 09/09/18
tablet,extended release 24 hr disease/condition
potassium gluconate 595 mg (99 mg) 0.5 tab PO HS Electrolyte Repletion 07/19/20
tablet
omega 0-dvu-fub-fish oil 900 2 ea PO BID Supplement 07/22/20
mg-1,400 mg capsule,delayed
release (Fish Oil)
hydrochlorothiazide 12.5 mg tablet 12.5 mg PO DAILY Blood pressure 04/08/21
aspirin 81 mg tablet,delayed 81 mg PO DAILY Blood Clot 07/11/23
release Prevention/Tx
fexofenadine 60 mg tablet 180 mg PO HS Allergies 07/11/23
lansoprazole 30 mg capsule,delayed 30 mg PO DAILY Gastrointestinal 07/11/23
release Issue
montelukast 10 mg tablet 10 mg PO HS Lung/Breathing Issues 07/11/23
(Singulair)
vibegron 75 mg tablet (Gemtesa) 75 mg PO DAILY Urinary Issue 07/11/23
albuterol sulfate 2.5 mg/3 mL 2.5 mg inhalation TID 12/25/23
(0.083 %) solution for nebulization Lung/Breathing Issues
budesonide 0.5 mg/2 mL suspension 0.5 mg inhalation BID 12/25/23
for nebulization Lung/Breathing Issues
coenzyme Q10 100 mg capsule 100 mg PO BID Supplement 12/25/23
(CoQ-10)
solifenacin 10 mg tablet (Vesicare) 10 mg PO DAILY Urinary Issue 12/25/23
Review of Systems
-
All other systems: A 12 pt ROS was Negative except as stated above in HPI
Vital Signs
Temp Pulse Resp BP Pulse Ox
97.9 F 105 24 162/87 96
01/04/24 07:46 01/04/24 07:46 01/04/24 07:46 01/04/24 07:46 01/04/24 07:46
Physical Exam
Exam
General: No Apparent Distress
HEENT: Anicteric
Cardiac: S1/S2
GI: Soft and Non Distended (mildly distended)
Psych: Calm
Results
WBC 22.6 10^3/uL (4.8-10.8) H 01/04/24 06:52
Hgb 13.9 g/dL (13.0-18.0) 01/04/24 06:52
Hct 40.9 % (39.0-52.0) 01/04/24 06:52
MCV 85.6 fL (80.0-94.0) 01/04/24 06:52
Plt Count 443 10^3/uL (130-400) H 01/04/24 06:52
Absolute Neuts (auto) 19.0 10^3/uL (1.4-6.5) H 01/04/24 06:52
PT 16.3 Sec (11.4-14.6) H 12/25/23 08:29
INR 1.30 12/25/23 08:29
APTT 47.8 Sec (23.4-35.0) H 01/04/24 09:43
Sodium 138 mmol/L (135-145) 01/04/24 06:52
Potassium 5.5 mmol/L (3.5-5.1) H 01/04/24 06:52
Chloride 97 mmol/L (98-107) L 01/04/24 06:52
Carbon Dioxide 28 mmol/L (22-30) 01/04/24 06:52
BUN 46 mg/dl (9-20) H 01/04/24 06:52
Creatinine 1.6 mg/dL (0.7-1.3) H 01/04/24 06:52
Calcium 10.6 mg/dl (8.4-10.2) H 01/04/24 06:52
Total Bilirubin 2.0 mg/dl (0.2-1.3) H 12/24/23 23:45
AST 51 U/L (17-59) 12/24/23 23:45
ALT 20 U/L (0-50) 12/24/23 23:45
Alkaline Phosphatase 95 U/L (38-126) 12/24/23 23:45
Assessment / Plan
-
This patient is an 88-year-old man with a history of PE and DVT who had 1 day of nausea and emesis likely secondary to ileus. At this point I cannot rule out that he had a small Nighat-Goodrich tear. He does have an elevated white count but appears
relatively stable. For now I would do the following;
1. PPI ggt
2. follow hgb/wbc
3. if clinically worsens would get CT scan to r/o SBO
4. If emesis turns bloody would consider EGD
Data Reviewed
-
Radiology: Report Reviewed by me
-
-
Thank you for consultation and allowing me to participate in the patient's care. Please call the environmental health manager GI physician during the after hours with any questions or concerns.
[2024-01-04] MEDS: PROTONIX 100 IV ×2 (13:48→23:04)
[2024-01-04 15:12] VITALS: BP 142/86
[2024-01-04 17:45] LABS: Blood Urea Nitrogen 50 mg/dl (9-20); Calcium 10.1 mg/dl (8.4-10.2); Carbon Dioxide 26 mmol/L (22-30); Chloride 100 mmol/L (98-107); Estimated Creatinine Clearance 31 ml/min; Glucose 132 mg/dl (70-99); Potassium 4.7 mmol/L (3.5-5.1); Sodium 140 mmol/L (135-145)
[2024-01-04 19:57] VITALS: BP 129/80
[2024-01-04] MEDS: CHLORASEPTIC/SORE THROAT SPRAY 1 SPRAY PO (21:27)
[2024-01-04 23:37] VITALS: BP 126/78
[2024-01-05 00:33] LABS: APTT 119.6 Sec (23.4-35.0)
[2024-01-05 03:13] VITALS: BP 132/70
[2024-01-05 05:10] VITALS: BMI 23.2
[2024-01-05] MEDS: LOPRESSOR 5 MG IV ×3 (05:16→17:24)
[2024-01-05 07:07] LABS: % Basophils 0.5 % (0-2); % Eosinophils 5.4 % (0-6); % Immature Granulocytes 2.4 % (0-0.5); % Monocytes 10.9 % (1.7-9.3); % Neutrophils 70.8 % (42.2-75.2); Absolute Basophils 0.1 10^3/uL (0-0.2); Absolute Immature Granulocytes 0.4 10^3/uL (0-0.05); Absolute Lymphocytes 1.8 10^3/uL (1.2-3.4); Absolute Neutrophils 12.9 10^3/uL (1.4-6.5); Hematocrit 35.3 % (39.0-52.0); Mean Corpuscular Hgb 29.8 pg (27.0-31.0); Mean Corpuscular Volume 87.6 fL (80.0-94.0); Mean Platelet Volume 8.9 fL (7.4-10.4); Nucleated Red Blood Cells % 0 % (-); Platelet Count 440 10^3/uL (130-400); Red Blood Cell Count 4.03 10^6/uL (4.70-6.10); Red Cell Dist. Width 13.2 % (11.5-14.5); White Blood Cell Count 18.2 10^3/uL (4.8-10.8)
[2024-01-05 07:35] LABS: APTT > 200.0 Sec (23.4-35.0)
[2024-01-05 07:57] LABS: Blood Urea Nitrogen 54 mg/dl (9-20); Calcium 9.8 mg/dl (8.4-10.2); Carbon Dioxide 28 mmol/L (22-30); Chloride 103 mmol/L (98-107); Estimated Creatinine Clearance 31 ml/min; Glucose 104 mg/dl (70-99); Potassium 4.2 mmol/L (3.5-5.1); Sodium 141 mmol/L (135-145)
[2024-01-05 08:25] VITALS: BP 131/79
--- NOTE | 2024-01-05 09:40 | W.PN.GI.CBS2 ---
Addendum entered and electronically signed by Karan Gustafson MD 01/05/24 10:39:
I saw and examined the patient.
The WEIGHT YARDAGE CHECKER or PA's note was reviewed and I agree with the note.
Comment:
Pt with discomfort from tube, much less output from NGT than yesterday
abd: less distended
impression:
Ileus
n/v
hyponatremia
anemia
plan:
xray and if improved can trial with ngt clamped uf minimal output then can pull
continue PPI
hgb stable
if worsens would do CT scan
Original Note:
Today's Communication / Plan
-
ileus likely exacerbated by severe hyponatremia on admission then laxative use last week
repeat abd film today
keep Na corrected
NGT output 450 then 250ml cont to monitor consider clamping trial pending follow up X ray
if still stool in colon may need to restart miralax slowly
cont PPI
hbg stable 12 with no sign of active GI bleeding and bilious drainage in canister
if clinically worsens would get CT scan to r/o SBO
Assessment / Plan
-
This patient is an 88-year-old man with a history of PE and DVT and marked hyponatremia with Na down to 119 who had 1 day of nausea and emesis likely secondary to ileus. At this point I cannot rule out that he had a small Nighat-Goodrich tear. He
does have an elevated white count but appears relatively stable. For now I would do the following;
-ileus
-hyponatremia
-constipation
-PE/DVT
-new onset afib
-elevated trop with non ischemic Myocardial injury
PLAN:
ileus likely exacerbated by severe hyponatremia on admission then laxative use last week
repeat abd film today
keep Na corrected
NGT output 450 then 250ml cont to monitor consider clamping trial pending follow up X ray
if still stool in colon may need to restart miralax slowly
cont PPI
hbg stable 12 with no sign of active GI bleeding and bilious drainage in canister
if clinically worsens would get CT scan to r/o SBO
Subjective
Subjective
Date of Service: January 05, 2024
12/31 brown loose stool, NPO c/o throat pain with NGT
Objective
Data Reviewed
Laboratory Data:
Laboratory Results
01/05/24 06:28
01/05/24 06:28
Laboratory Results
PT 16.3 Sec (11.4-14.6) H 12/25/23 08:29
INR 1.30 12/25/23 08:29
APTT > 200.0 Sec (23.4-35.0) H* 01/05/24 06:28
Total Bilirubin 2.0 mg/dl (0.2-1.3) H 12/24/23 23:45
AST 51 U/L (17-59) 12/24/23 23:45
ALT 20 U/L (0-50) 12/24/23 23:45
Alkaline Phosphatase 95 U/L (38-126) 12/24/23 23:45
Vital Signs and I&O:
Vital Signs
Temp Pulse Resp BP Pulse Ox
98.1 F 88 18 131/79 95
01/05/24 08:25 01/05/24 08:25 01/05/24 08:25 01/05/24 08:25 01/05/24 08:25
I&O
01/04/24 01/05/24 01/06/24
06:59 06:59 06:59
Intake Total 1130 / 1130 1895 / 1895
Output Total 450 / 450 250 / 250
Balance 680 / 680 1645 / 1645
Physical Exam
Physical Exam
HEENT: Anicteric and Moist mucous membranes
Cardiology: Normal Sinus Rhythm
Pulmonary: Clear
GI: Soft, Distended (mild ) and Non Distended
Extremities: No Edema
Neuro: Non Focal and Other (hard of hearing )
[2024-01-05] MEDS: MYCOSTATIN ORAL SUSPENSION PO ×3 (09:43→17:22)
[2024-01-05] MEDS: PROTONIX 100 IV ×2 (09:44→20:50)
[2024-01-05] MEDS: CHLORASEPTIC/SORE THROAT SPRAY 1 SPRAY PO (09:45)
[2024-01-05] MEDS: HEPARIN 25000 UNITS/250 ML IV (09:50)
--- NOTE | 2024-01-05 10:04 | W.PN.PUL3 ---
Today's Communication / Plan
-
NPO s/p NGT in for Ileus
While NPO, OAC converted to IV heparin
Can be transitioned back to Eliquis when able to take PO
Discussed case with daughter, he will likely need lifelong AC, she is aware
Ongoing GI management for SBO
Eventual outpatient pulmonary FU reviewed as well
We will sign off at this time, please call with questions
Assessment
-
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
cancer 2008 status post radiation now presents with acute onset right chest pain, labile blood pressure and fall. CT chest confirmed bilateral PE without RV strain. We are asked to comment on pulmonary process.
Impression:
Acute bilateral PE with RV strain
Left lower extremity acute nonocclusive DVT
History of PE/DVT 2018
Unprovoked, on anticoagulation for 4 years
Discontinued per hematology after negative hypercoagulable workup
History of multiple falls in the past
Mild aortic stenosis/mitral regurgitation
Normal RV size/function per echo August 2023
Normal PA pressure
New onset paroxysmal atrial fibrillation
Mild tachycardia
Hyponatremia
SOB
Leukocytosis
Hypereosinophilia
DARIUS
Nausea/vomiting with abdominal stanchion s/p NGT (placed earlier this morning on 01/03)
SBO
Conditions present prior to admission
Recurrent bronchitis
History of asthma
Bronchiectasis, per CT imaging
History of recurrent sinusitis, rhinitis
Obstructive sleep apnea, total index 7.8, noncompliant with CPAP
Nocturnal hypoxia, not on home oxygen
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
Resolved per echo August 2023
History of prostate cancer radiation therapy 2008
DNR
Plan
Respiratory status improved and he is on room air breathing comfortably
Keep SpO2 >90-94%
Assess discharge supplemental oxygen needs prior to discharge via ambulatory pulse ox-not on home oxygen
Nebulizers as needed
Aspiration precautions per protocol
Chest x-ray 01/01/2024-mild pulm edema and right effusion-small
Patient has history of unprovoked PE/DVT, distant history of prostate cancer 2007
Left lower extremity nonocclusive DVT noted
Echocardiogram with dilated RV, hypokinesis, PA pressure 57. This is new
MR also is moderately, worse than before
RV: LV ratio is >1 on CTA chest
Mildly elevated troponin, proBNP noted
Patient will likely require lifelong anticoagulation
This may be difficult as patient has a history of recurrent falls
Now on IV heparin due to NPO status
Can be transitioned back to PO eliquis when able to resume PO
Keep NPO with NGT to LIWS
Monitor NGT output
GI Following for possible SBO
Ongoing management
Complains of left lateral foot and leg pain-not calf pain, negative Homans sign
Uric acid level normal
Foot x-rays 12/29/2023 reviewed-arthritis
I do not believe this is DVT related
Analgesia per primary service
Additional workup and possible orthopedic evaluation per primary team
Monitor leukocytosis-still elevated-patient nontoxic
Repeat chest x-ray 01/01/2024 summarized above-mild CHF
Infectious disease following-correspondence reviewed
Monitor peripheral eosinophilia
Colchicine added for potential gout-never received a dose and leg pain improved
Last dose of pantoprazole was 01/01/2024
Replace electrolytes with K>4, Mg>2
Follow serum sodium
On gentle IVF with NS 0.9% at 50cc/hr
Hydrochlorothiazide on hold
Cardiology following-correspondence reviewed-signed off 12/26/23
Monitor for atrial fibrillation-paroxysmal atrial fibrillation noted on telemetry
Trend sCr; if worsens then consult nephrology
Patient well-known to pulmonary-Dr. EspinalPghhkig-Oznrognq-yabewtvmtoki left
Pulmonary follow-up in 4 to 6 weeks
This was reviewed with daughter today
-----
Total time spent today was 50 minutes for this encounter. Time includes reviewing laboratory test/imaging results, reviewing pertinent medical records, obtaining and reviewing medical history, performing an appropriate exam, ordering medications,
tests and procedures. Time also includes documentation of this encounter, coordinating patient care and communicating with other healthcare professionals. Total time does not include separately billed tests performed on this date of service.
Subjective Data
-
Date of Service:
Date of Service: January 05, 2024
Chief Complaint: Pulmonary Follow Up and Dyspnea Follow Up
Subjective:
no acute events, maintained on RA
NGT in place
on IV heparin
Objective Data
Data Reviewed
Vital Signs / I&O / Oxygen:
Vital Signs
Temp Pulse Resp BP Pulse Ox
98.1 F 88 18 131/79 95
01/05/24 08:25 01/05/24 08:25 01/05/24 08:25 01/05/24 08:25 01/05/24 08:25
Intake and Output
01/04/24 01/05/24 01/06/24
06:59 06:59 06:59
Intake Total 1130 / 1130 1895 / 1895
Output Total 450 / 450 250 / 250
Balance 680 / 680 1645 / 1645
SaO2 95
Nasal Cannula flow liters per 1
minute
Physical Exam
General: Respiratory Distress (n), Comfortable and Other (NAD)
HEENT: Normocephalic, Anicteric and Moist Mucous Membranes
Cardiovascular: S1-S2 and Murmur (2/6 systolic murmur)
Respiratory: Clear (overall decreased), Wheeze (n), Crackles (n), Rhonchi (n), Non-Labored Respirations and Other (Grossly diminished breath sounds bilaterally)
GI: Soft, Distended, Non Tender, NG Tube and Other (Hypoactive bowel sounds)
Neurology: Awake, Alert and Tremors (n)
Skin: Warm, Dry, Cyanosis (n), Jaundice (n) and Rash (n)
Labs/Micro/Reports
Lab Data
01/05/24 06:28
01/05/24 06:28
Laboratory Results
01/04/24 01/04/24 01/05/24
09:43 16:11 00:14
APTT 47.8 H 165.0 H* 119.6 H
01/05/24
06:28
APTT > 200.0 H*
--- NOTE | 2024-01-05 10:58 | W.PN.ID1 ---
Date of Service
Date of Service: January 05, 2024
Today's Communication
- would not restart nonessential meds on discharge - eosinophilia was likely caused by a drug or drug:drug interaction
- ppi per GI
follow up with PCP with cbc with diff in about 1 month
ID service will no longer actively follow this patient please recall for further questions
Assessment / Plan
A&P
Leukocytosis
DVT/PE
Bronchiectasis
Prostate Cancer s/p XRT
Eosinophilia resolving - AEC now 1.0
- eosinophilia is resolving
- would not restart nonessential meds on discharge - eosinophilia was likely caused by a drug or drug:drug interaction
- ppi per GI
follow up with PCP with cbc with diff in about 1 month
ID service will no longer actively follow this patient please recall for further questions
Chief Complaint
-: Leukocytosis
Subjective / Review of Systems
no events reported overnight
remains afebrile
nausea and emesis 01/02 - had NGT placed to suction and felt better
now back on ppi
Vital Signs / Physical Exam
Vital Signs
Vital Signs
Temp Pulse Resp BP Pulse Ox
98.1 F 88 18 131/79 95
01/05/24 08:25 01/05/24 08:25 01/05/24 08:25 01/05/24 08:25 01/05/24 08:25
Physical Exam
Constitutional: No Acute Distress
Cardiovascular: Regular Rate and S1/S2; Negative Murmur or Rub
Pulmonary: Clear and Symmetric; Negative Wheezes or Rales
Gastrointestinal: Soft, Non Tender, Non Distended and Decreased Bowel Sounds (present but hypoactive)
Skin: Warm and Dry; Negative Rash or Jaundice
Lines: Other (NGT in place with bilious fluid)
Objective Data
Lab Data
Lab Results
01/05/24 06:28
01/05/24 06:28
ESR 56 mm/hour (0-20) H 01/02/24 04:42
PT 16.3 Sec (11.4-14.6) H 12/25/23 08:29
INR 1.30 12/25/23 08:29
APTT > 200.0 Sec (23.4-35.0) H* 01/05/24 06:28
Estimated Creat Clear 31 ml/min 01/05/24 06:28
Total Bilirubin 2.0 mg/dl (0.2-1.3) H 12/24/23 23:45
AST 51 U/L (17-59) 12/24/23 23:45
ALT 20 U/L (0-50) 12/24/23 23:45
Alkaline Phosphatase 95 U/L (38-126) 12/24/23 23:45
Most recent labs reviewed as above in addition
AEC down to 1.0 today
AXR 01/02: ileus
--- NOTE | 2024-01-05 11:48 | CM ---
CM continues to follow for transfer to SNF. Pt currently has NGT in place; [facility] and [facility] advised of no plan for discharge today.
Plan: Transfer to SNF for short term rehab when medically ready. [facility] is first choice, [facility] as a back up plan. CM to obtain authorization for SNF transfer once medically ready.
PCP - Amador Westfall
Pharmacy - [facility]
--- NOTE | 2024-01-05 12:22 | W.PN.HOSP.TC ---
Today's Communication/Plan
-
await Xray and possible NGT clamp trial per GI
continue meds as IV until PO route re-established
continue IVF
Assessment / Plan
Assessment / Plan
Assessment:
Small bowel ileus
- suspect multifactorial from pain meds, immobility, constipation
- Obs series: progressed findings suggesting moderate probable small bowel ileus. Developing obstruction cannot be completely excluded. Moderate fecal material throughout the colon.
- NGT placed, continue for decompression
- repeat Xray pending and may consider NGT clamping after
- hold Narcs
- prn Anti-emetics (Tigan due to prolonged QTc)
- IVF to match I/Os
- GI following
- will need aggressive bowel regimen post-NGT
DARIUS, likely pre-renal from hypotension noted 12/31
- Cr improved from 2.0 to 1.5
- IVF to match I/Os
- hold nephrotoxins
Acute bilateral PE
Non-Ischemic Myocardial Injury secondary to the above
- CT with bilateral main pulmonary artery, extending into segmental vessels. no heart strain.
- Dopplers: L nonocclusive clot involving the left femoral vein, popliteal vein, peroneal vein, and posterior tibial vein. There is also nonocclusive clot within the visualized proximal profunda femoris vein
- trop peaked at .554
- BNP elevated
- Echo: normal LVEF, but RV enlargement with decreased function (Graves sign). repeat in 3-6 months
- continue supportive care/symptom control
- holding Eliquis while NGT in place; IV heparin protocol started
- Cardiology signed off
- Pulm signed off
bilateral foot pain
- reviewed with Pulmonary, not related to DVT
- normal uric acid
- documented that patient was placed on Colchicine for presumed gout but confirmed with RN/Pharmacy and never received Colchicine
- symptoms much improved today and continues to be asymptomatic at present, will monitor for now and re-assess if becomes symptomatic again.
Leukocytosis with chronic eosinophilia
- ID evaluated; no infectious etiology
- PPI switched to Famotidine and other non-essential meds stopped. Later PPI re-added for +N/V
- OP f/u in CBC in 4-6 weeks
Left upper back pain
- does not sound pleuritic, most consistent with muscular/arthritic
Acute Hyponatremia
- Likely secondary to increased fluid intake over the past 3 days + HCTZ use + increased ADH state secondary to pain, dyspnea, pulmonary process.
- No clear symptoms at this time attributable to Na level.
- Fluid restrict
- continue daily prn IV Lasix today; transitioned to Lasix 20mg daily Thursday 12/28 and stay off HCTZ permanently
- follow Na, 119-->120-->121-->124-->126-->128-->133-->135-->141
New onset parox A.fib
- continue BB for rate control
- continue Eliquis; renally dosed
Benign Hypertension
- Continue metoprolol; may need further titration
- stay off HCTZ; holding Losartan and Lasix for DARIUS
Moderate Persistent Asthma
- No active wheezing appreciated on exam, SpO2 is acceptable on room air.
- Continue budesonide. Albuterol PRN.
- Follow for any changes/new symptoms.
BPH/OAB
History of Prostate Cancer s/p XRT
- Hold OAB medications acutely.
- Bladder scan protocols.
Vomiting likely from morphine side effect
- prn anti-emetics
DVT Prophylaxis: Eliquis
Code Status: DNR/DNI
Anticipated Discharge: > 48 hours
Subjective/Interval History
-
Date of Service: January 05, 2024
remains with NGT, output lower
abdomen less distended
Objective Data
-
Labs:
Laboratory Results
01/05/24 01/05/24 01/05/24
00:14 06:28 15:45
WBC 18.2 H
Hgb 12.0 L
Hct 35.3 L
Plt Count 440 H
APTT 119.6 H > 200.0 H* Pending
Sodium 141
Potassium 4.2
Chloride 103
Carbon Dioxide 28
BUN 54 H
Creatinine 1.5 H
Glucose 104 H
Calcium 9.8
Vital Signs:
Vital Signs
Temp Pulse Resp BP Pulse Ox
98.1 F 88 18 131/79 95
01/05/24 08:25 01/05/24 08:25 01/05/24 08:25 01/05/24 08:25 01/05/24 08:25
I&O
01/04/24 01/05/24 01/06/24
06:59 06:59 06:59
Intake Total 1130 / 1130 1895 / 1895
Output Total 450 / 450 250 / 250
Balance 680 / 680 1645 / 1645
Physical Exam
-
General: No Apparent Distress
HEENT: Normocephalic, Atraumatic and Other (+NGT)
Respiratory: Negative Wheezes
Cardiac: Regular Rhythm and S1/S2
GI: Soft
Genito-urinary: No Costovertebral Tender
Neuro: AO x 3
Hematologic / Lymphatic: No Lymphadenopathy
Psych: Calm
Data Reviewed
-
Total Time Spent with Patient (in minutes): 41
Labs: Labs Reviewed by me
[2024-01-05 12:28] VITALS: BP 123/88
[2024-01-05] MEDS: NSS 500 IV (12:57)
[2024-01-05] MEDS: MIRALAX 17 GRAMS TUBE (15:50)
[2024-01-05 16:28] VITALS: BP 149/73
[2024-01-05 17:17] LABS: APTT 62.2 Sec (23.4-35.0)
[2024-01-05] MEDS: HEPARIN 5200 UNITS IV (17:30)
[2024-01-05 19:37] VITALS: BP 148/84
[2024-01-05] MEDS: MYCOSTATIN ORAL SUSPENSION 5 ML PO (21:00)
[2024-01-05 23:41] VITALS: BP 146/80
[2024-01-06] VITALS (7 sets, daily range): BP systolic 124–161; BP diastolic 56–96; PULSE 94–95; O2SAT 95; BMI 23.4
[2024-01-06 00:16] LABS: APTT > 200 Sec (23.4-35.0)
[2024-01-06] MEDS: LOPRESSOR 5 MG IV ×5 (00:22→23:46)
[2024-01-06] MEDS: DUONEB 3 ML INH (05:22)
[2024-01-06] MEDS: PROTONIX 100 IV ×3 (06:15→23:48)
[2024-01-06] MEDS: PULMICORT INH (07:53)
[2024-01-06] MEDS: VENTOLIN NEBULES INH (07:53)
[2024-01-06 08:24] LABS: % Basophils 1.1 % (0-2); % Eosinophils 5.1 % (0-6); % Immature Granulocytes 3.4 % (0-0.5); % Lymphocytes 10.6 % (20.5-51.1); % Monocytes 12.7 % (1.7-9.3); % Neutrophils 67.1 % (42.2-75.2); Absolute Basophils 0.1 10^3/uL (0-0.2); Absolute Eosinophils 0.7 10^3/uL (0-0.7); Absolute Immature Granulocytes 0.4 10^3/uL (0-0.05); Absolute Lymphocytes 1.4 10^3/uL (1.2-3.4); Absolute Monocytes 1.7 10^3/uL (0.1-0.6); Absolute Neutrophils 8.8 10^3/uL (1.4-6.5); Hematocrit 34.4 % (39.0-52.0); Hemoglobin 11.8 g/dL (13.0-18.0); Mean Corp Hgb Conc. 34.3 g/dL (33.0-37.0); Mean Corpuscular Hgb 29.2 pg (27.0-31.0); Mean Corpuscular Volume 85.1 fL (80.0-94.0); Mean Platelet Volume 10.8 fL (7.4-10.4); Nucleated Red Blood Cells % 0 % (-); Platelet Count 259 10^3/uL (130-400); Red Blood Cell Count 4.04 10^6/uL (4.70-6.10); Red Cell Dist. Width 13.2 % (11.5-14.5)
[2024-01-06] MEDS: MYCOSTATIN ORAL SUSPENSION 5 ML PO ×2 (08:24→12:29)
[2024-01-06] MEDS: MIRALAX TUBE (08:29)
[2024-01-06 08:58] LABS: Blood Urea Nitrogen 48 mg/dl (9-20); Calcium 9.3 mg/dl (8.4-10.2); Carbon Dioxide 19 mmol/L (22-30); Chloride 110 mmol/L (98-107); Estimated Creatinine Clearance 35 ml/min; Glucose 90 mg/dl (70-99); Potassium 4.2 mmol/L (3.5-5.1); Sodium 145 mmol/L (135-145); eGFR 52.84
[2024-01-06 09:07] LABS: APTT 54.6 Sec (23.4-35.0)
--- NOTE | 2024-01-06 09:09 | W.PN.HOSP.TC ---
Today's Communication/Plan
-
trial clears
bowel regimen; request GI assistance as no appreciable BM in nearly 3 weeks
Assessment / Plan
Assessment / Plan
Assessment:
Small bowel ileus
- suspect multifactorial from pain meds, immobility, constipation
- Obs series: progressed findings suggesting moderate probable small bowel ileus. Developing obstruction cannot be completely excluded. Moderate fecal material throughout the colon.
- repeat xray with improvement
- NGT removed after successful clamp trial
- diet: start clears
- aggressive bowel regimen
- hold Narcs
- prn Anti-emetics (Tigan due to prolonged QTc)
- GI following
DARIUS, likely pre-renal from hypotension noted 12/31
- Cr improved from 2.0 to 1.3
- hold nephrotoxins
Acute bilateral PE
Non-Ischemic Myocardial Injury secondary to the above
- CT with bilateral main pulmonary artery, extending into segmental vessels. no heart strain.
- Dopplers: L nonocclusive clot involving the left femoral vein, popliteal vein, peroneal vein, and posterior tibial vein. There is also nonocclusive clot within the visualized proximal profunda femoris vein
- trop peaked at .554
- BNP elevated
- Echo: normal LVEF, but RV enlargement with decreased function (Graves sign). repeat in 3-6 months
- continue supportive care/symptom control
- holding Eliquis until PO well established; IV heparin protocol continues
- Cardiology signed off
- Pulm signed off
bilateral foot pain
- reviewed with Pulmonary, not related to DVT
- normal uric acid
- documented that patient was placed on Colchicine for presumed gout but confirmed with RN/Pharmacy and never received Colchicine
- symptoms much improved today and continues to be asymptomatic at present, will monitor for now and re-assess if becomes symptomatic again.
Leukocytosis with chronic eosinophilia
- ID evaluated; no infectious etiology
- PPI switched to Famotidine and other non-essential meds stopped. Later PPI re-added for +N/V (noted to have rising eosinophilia when re-introduced)
- OP f/u in CBC in 4-6 weeks
Left upper back pain
- does not sound pleuritic, most consistent with muscular/arthritic
Acute Hyponatremia
- Likely secondary to increased fluid intake over the past 3 days + HCTZ use + increased ADH state secondary to pain, dyspnea, pulmonary process.
- No clear symptoms at this time attributable to Na level.
- Fluid restrict
- continue daily prn IV Lasix today; transitioned to Lasix 20mg daily Thursday 12/28 and stay off HCTZ permanently
- follow Na, 119-->120-->121-->124-->126-->128-->133-->135-->145
New onset parox A.fib
- continue BB for rate control
- continue Eliquis; renally dosed
Benign Hypertension
- Continue metoprolol; may need further titration
- stay off HCTZ; holding Losartan and Lasix for DARIUS
Moderate Persistent Asthma
- No active wheezing appreciated on exam, SpO2 is acceptable on room air.
- Continue budesonide. Albuterol PRN.
- Follow for any changes/new symptoms.
BPH/OAB
History of Prostate Cancer s/p XRT
- Hold OAB medications acutely.
- Bladder scan protocols.
Vomiting likely from morphine side effect
- prn anti-emetics
DVT Prophylaxis: Eliquis
Code Status: DNR/DNI
Anticipated Discharge: > 48 hours
Subjective/Interval History
-
Date of Service: January 06, 2024
NGT removed
denies any abdominal pain
no BM yet
Objective Data
-
Labs:
Laboratory Results
01/05/24 01/06/24 01/06/24
23:33 07:49 08:37
WBC 13.0 H
Hgb 11.8 L
Hct 34.4 L
Plt Count 259 D
APTT > 200 H* 54.6 H
Sodium 145
Potassium 4.2
Chloride 110 H
Carbon Dioxide 19 L
BUN 48 H
Creatinine 1.3
Glucose 90
Calcium 9.3
Vital Signs:
Vital Signs
Temp Pulse Resp BP Pulse Ox
97.5 F 96 12 143/56 96
01/06/24 07:40 01/06/24 07:40 01/06/24 07:40 01/06/24 07:40 01/06/24 07:40
I&O
01/05/24 01/06/24 01/07/24
06:59 06:59 06:59
Intake Total 1895 / 1895 526 / 526
Output Total 250 / 250 140 / 140
Balance 1645 / 1645 386 / 386
Physical Exam
-
General: No Apparent Distress
HEENT: Normocephalic and Atraumatic
Respiratory: Negative Wheezes
Cardiac: Regular Rhythm and S1/S2
GI: Soft
Genito-urinary: No Costovertebral Tender
Neuro: AO x 3
Hematologic / Lymphatic: No Lymphadenopathy
Psych: Calm
Data Reviewed
-
Total Time Spent with Patient (in minutes): 42
Labs: Labs Reviewed by me
[2024-01-06] MEDS: HEPARIN 5200 UNITS IV (09:37)
[2024-01-06] MEDS: SENOKOT 8.6 MG PO ×2 (09:46→22:09)
[2024-01-06] MEDS: MIRALAX 17 GRAMS PO (09:46)
--- NOTE | 2024-01-06 11:56 | W.PN.GI.CBS2 ---
Today's Communication / Plan
-
Enema and await output
NPO ok for meds/clears
CTAP IV oral contrast
Assessment / Plan
-
Jay is an 88-year-old man with a history of PE and DVT and marked hyponatremia with Na down to 119 who had 1 day of nausea and emesis likely secondary to ileus and severe constipation without BM in about 2 wks. AXR Moderate small bowel
dilatation. Minimally progressed. Probably due to small bowel ileus. Obstruction not excluded. Moderate fecal material in the colon. Mostly in the right colon. Slightly improved. He is not clear if ever had colonoscopy before.
Impression
-ileus and severe constipation
-hyponatremia
-PE/DVT
-new onset afib
-elevated trop with non ischemic Myocardial injury
-GERD
-Tapia's esophagus
Plan
- Pt pulled NGT out 01/04
- NPO ok for clears and meds given nausea
- Awaiting enema x1 today
- CTAP IV and oral contrast ordered
- Add on TSH
Will follow with you
Subjective
Subjective
Date of Service: January 06, 2024
He reports abd pain and nausea/vomiting. He pulled NGT overnight. Reports no BM in about 2wks time. Not get received enema
Objective
Data Reviewed
Laboratory Data:
Laboratory Results
01/06/24 07:49
01/06/24 07:49
Laboratory Results
PT 16.3 Sec (11.4-14.6) H 12/25/23 08:29
INR 1.30 12/25/23 08:29
APTT 54.6 Sec (23.4-35.0) H 01/06/24 08:37
Total Bilirubin 2.0 mg/dl (0.2-1.3) H 12/24/23 23:45
AST 51 U/L (17-59) 12/24/23 23:45
ALT 20 U/L (0-50) 12/24/23 23:45
Alkaline Phosphatase 95 U/L (38-126) 12/24/23 23:45
Vital Signs and I&O:
Vital Signs
Temp Pulse Resp BP Pulse Ox
98.2 F 97 16 142/88 97
01/06/24 11:20 01/06/24 11:20 01/06/24 11:20 01/06/24 11:20 01/06/24 11:20
I&O
01/05/24 01/06/24 01/07/24
06:59 06:59 06:59
Intake Total 1895 / 1895 526 / 526
Output Total 250 / 250 140 / 140
Balance 1645 / 1645 386 / 386
Physical Exam
Physical Exam
GEN: No acute distress, conversant, pleasant hard of hearing
HEENT: anicteric, extraocular movements intact, clear oropharynx without exudates, poor dentition
GI: soft, obese mildly-distended, not tender to palpation, normal active bowel sounds, no hepatosplenomegaly
EXT: warm, well perfused, traceedema bilaterally
NEURO: AAOx3, non-focal, diminished pulses bilaterally
[2024-01-06] MEDS: OMNIPAQUE 50 ML PO (12:29)
[2024-01-06] MEDS: NSS 500 IV (12:44)
[2024-01-06] MEDS: VENTOLIN NEBULES 2.5 MG INH ×2 (12:58→19:41)
--- NOTE | 2024-01-06 16:44 | CM ---
CM continues to follow for transfer to SNF when medically ready. Jay has an ileus and constipation, bowel regimen will hopefully alleviate the constipation and back up of stool.
Plan is for transfer to [facility] vs. [facility] depending on bed availability at time of discharge. SNF authorization will need to be obtained.
Plan: CM will continue to follow for SNF auth and transportation when medically cleared.
[2024-01-06] MEDS: PULMICORT 0.5 MG INH (19:41)
[2024-01-06] MEDS: HEPARIN 25000 UNITS/250 ML IV (22:13)
[2024-01-07] VITALS (7 sets, daily range): BP systolic 109–157; BP diastolic 58–84; PULSE 110; O2SAT 97; BMI 24.0
[2024-01-07] MEDS: LOPRESSOR 5 MG IV ×4 (05:07→23:52)
[2024-01-07] MEDS: PULMICORT 0.5 MG INH ×2 (07:17→19:33)
[2024-01-07] MEDS: VENTOLIN NEBULES 2.5 MG INH ×3 (07:17→19:33)
[2024-01-07 07:31] LABS: % Basophils 0.7 % (0-2); % Eosinophils 7.5 % (0-6); % Immature Granulocytes 4.2 % (0-0.5); % Lymphocytes 13.7 % (20.5-51.1); % Monocytes 13.5 % (1.7-9.3); % Neutrophils 60.4 % (42.2-75.2); Absolute Basophils 0.1 10^3/uL (0-0.2); Absolute Immature Granulocytes 0.6 10^3/uL (0-0.05); Absolute Lymphocytes 1.8 10^3/uL (1.2-3.4); Absolute Monocytes 1.8 10^3/uL (0.1-0.6); Absolute Neutrophils 8.1 10^3/uL (1.4-6.5); Hematocrit 32.5 % (39.0-52.0); Hemoglobin 10.7 g/dL (13.0-18.0); Mean Corp Hgb Conc. 32.9 g/dL (33.0-37.0); Mean Corpuscular Hgb 28.3 pg (27.0-31.0); Nucleated Red Blood Cells % 0 % (-); Platelet Count 450 10^3/uL (130-400); Red Blood Cell Count 3.78 10^6/uL (4.70-6.10); Red Cell Dist. Width 13.2 % (11.5-14.5); White Blood Cell Count 13.3 10^3/uL (4.8-10.8)
[2024-01-07 07:40] LABS: APTT 77.6 Sec (23.4-35.0)
[2024-01-07 07:47] LABS: Procalcitonin 0.15 ng/ml (0.0-0.25)
[2024-01-07] MEDS: SENOKOT 8.6 MG PO ×2 (07:50→20:55)
[2024-01-07] MEDS: MIRALAX 17 GRAMS PO (07:50)
[2024-01-07 07:56] LABS: Blood Urea Nitrogen 33 mg/dl (9-20); Calcium 9.1 mg/dl (8.4-10.2); Carbon Dioxide 26 mmol/L (22-30); Chloride 106 mmol/L (98-107); Estimated Creatinine Clearance 38 ml/min; Glucose 94 mg/dl (70-99); Potassium 4.4 mmol/L (3.5-5.1); Sodium 143 mmol/L (135-145); eGFR 58.17
[2024-01-07] MEDS: PROTONIX 100 IV (10:13)
--- NOTE | 2024-01-07 13:02 | W.PN.HOSP.TC ---
Today's Communication/Plan
-
await AXR; consider clears if GI agrees
transition meds back to PO status
Assessment / Plan
Assessment / Plan
Assessment:
Small bowel ileus
- suspect multifactorial from pain meds, immobility, constipation
- Obs series: progressed findings suggesting moderate probable small bowel ileus. Developing obstruction cannot be completely excluded. Moderate fecal material throughout the colon.
- repeat xray with improvement
- NGT removed after successful clamp trial
- diet: start clears
- aggressive bowel regimen with several BMs in past 24 hours
- await repeat Xray, hopefully can start clears
- hold Narcs
- prn Anti-emetics (Tigan due to prolonged QTc)
- GI following
DARIUS, likely pre-renal from hypotension noted 12/31
- Cr improved from 2.0 to 1.2
- hold nephrotoxins
Acute bilateral PE
Non-Ischemic Myocardial Injury secondary to the above
- CT with bilateral main pulmonary artery, extending into segmental vessels. no heart strain.
- Dopplers: L nonocclusive clot involving the left femoral vein, popliteal vein, peroneal vein, and posterior tibial vein. There is also nonocclusive clot within the visualized proximal profunda femoris vein
- trop peaked at .554
- BNP elevated
- Echo: normal LVEF, but RV enlargement with decreased function (Graves sign). repeat in 3-6 months
- continue supportive care/symptom control
- transition back to Eliquis
- Cardiology signed off
- Pulm signed off
bilateral foot pain
- reviewed with Pulmonary, not related to DVT
- normal uric acid
- documented that patient was placed on Colchicine for presumed gout but confirmed with RN/Pharmacy and never received Colchicine
- symptoms much improved today and continues to be asymptomatic at present, will monitor for now and re-assess if becomes symptomatic again.
Leukocytosis with chronic eosinophilia
- ID evaluated; no infectious etiology
- PPI switched to Famotidine and other non-essential meds stopped. Later PPI re-added for +N/V (noted to have rising eosinophilia when re-introduced)
- OP f/u in CBC in 4-6 weeks
Left upper back pain
- does not sound pleuritic, most consistent with muscular/arthritic
Acute Hyponatremia
- Likely secondary to increased fluid intake over the past 3 days + HCTZ use + increased ADH state secondary to pain, dyspnea, pulmonary process.
- No clear symptoms at this time attributable to Na level.
- Fluid restrict
- continue daily prn IV Lasix today; transitioned to Lasix 20mg daily Thursday 12/28 and stay off HCTZ permanently
- follow Na, 119-->120-->121-->124-->126-->128-->133-->135-->143
New onset parox A.fib
- continue BB for rate control
- continue Eliquis; renally dosed
Benign Hypertension
- Continue metoprolol; may need further titration
- stay off HCTZ; holding Losartan and Lasix for DARIUS
Moderate Persistent Asthma
- No active wheezing appreciated on exam, SpO2 is acceptable on room air.
- Continue budesonide. Albuterol PRN.
- Follow for any changes/new symptoms.
BPH/OAB
History of Prostate Cancer s/p XRT
- Hold OAB medications acutely.
- Bladder scan protocols.
Vomiting likely from morphine side effect
- prn anti-emetics
DVT Prophylaxis: Eliquis
Code Status: DNR/DNI
Anticipated Discharge: > 48 hours
Subjective/Interval History
-
Date of Service: January 07, 2024
several BMs yesterday and overnight into today
awaiting AM xray
Objective Data
-
Labs:
Laboratory Results
01/07/24 01/07/24
06:15 13:45
WBC 13.3 H
Hgb 10.7 L
Hct 32.5 L
Plt Count 450 H D
APTT 77.6 H Pending
Sodium 143
Potassium 4.4
Chloride 106
Carbon Dioxide 26
BUN 33 H
Creatinine 1.2
Glucose 94
Calcium 9.1
Vital Signs:
Vital Signs
Temp Pulse Resp BP Pulse Ox
97.5 F 102 24 109/58 98
01/07/24 11:05 01/07/24 11:05 01/07/24 11:05 01/07/24 11:05 01/07/24 11:05
I&O
01/06/24 01/07/24 01/08/24
06:59 06:59 06:59
Intake Total 526 / 526 1939
Output Total 140 / 140
Balance 386 / 386 1939
Physical Exam
-
General: No Apparent Distress
HEENT: Normocephalic and Atraumatic
Respiratory: Negative Wheezes
Cardiac: Regular Rhythm and S1/S2
GI: Soft
Genito-urinary: No Costovertebral Tender
Neuro: AO x 3
Psych: Calm
Data Reviewed
-
Total Time Spent with Patient (in minutes): 44
Labs: Labs Reviewed by me
--- NOTE | 2024-01-07 13:17 | W.PN.GI.CBS2 ---
Today's Communication / Plan
-
Full liquid diet
Ok to resume oral anticoagulation if desired by primary team
Miralax daily basis
Assessment / Plan
-
Jay is an 88-year-old man with a history of PE and DVT and marked hyponatremia with Na down to 119 who had 1 day of nausea and emesis likely secondary to ileus and severe constipation without BM in about 2 wks. AXR Moderate small bowel
dilatation. Minimally progressed. Probably due to small bowel ileus. Obstruction not excluded. Moderate fecal material in the colon. Mostly in the right colon. Slightly improved. He is not clear if ever had colonoscopy before.
Impression
-ileus and severe constipation
-hyponatremia
-PE/DVT
-new onset afib
-elevated trop with non ischemic Myocardial injury
-GERD
-Tapia's esophagus
Plan
- Pt pulled NGT out 01/04, copious BMs 01/05 (after 2.5wks without BM)
- AXR today improved
- Start back full liquid diet
- Miralax daily
- CTAP IV and oral contrast with SB distension without obstruction
- Ok to resume oral AC if desired by primary service
Will follow with you
Subjective
Subjective
Date of Service: January 07, 2024
He passed copious BMs yesterday. Denies any further abd pain, nausea or vomiting
Objective
Data Reviewed
Laboratory Data:
Laboratory Results
01/07/24 06:15
01/07/24 06:15
Laboratory Results
PT 16.3 Sec (11.4-14.6) H 12/25/23 08:29
INR 1.30 12/25/23 08:29
APTT Cancelled 01/07/24 13:45
Total Bilirubin 2.0 mg/dl (0.2-1.3) H 12/24/23 23:45
AST 51 U/L (17-59) 12/24/23 23:45
ALT 20 U/L (0-50) 12/24/23 23:45
Alkaline Phosphatase 95 U/L (38-126) 12/24/23 23:45
Vital Signs and I&O:
Vital Signs
Temp Pulse Resp BP Pulse Ox
97.5 F 96 16 109/58 98
01/07/24 11:05 01/07/24 13:12 01/07/24 13:12 01/07/24 11:05 01/07/24 11:05
I&O
01/06/24 01/07/24 01/08/24
06:59 06:59 06:59
Intake Total 526 / 526 1939
Output Total 140 / 140
Balance 386 / 386 1939
Physical Exam
Physical Exam
GEN: No acute distress, conversant, pleasant
HEENT: anicteric, extraocular movements intact, clear oropharynx without exudates
GI: soft, mildly-distended, not tender to palpation, normal active bowel sounds, no hepatosplenomegaly
EXT: warm, well perfused, trace edema bilaterally
NEURO: AAOx3, non-focal
[2024-01-07] MEDS: ELIQUIS 5 MG PO ×2 (14:01→20:55)
[2024-01-08 03:55] VITALS: BP 132/78
[2024-01-08] MEDS: LOPRESSOR 5 MG IV (05:51)
[2024-01-08 06:00] VITALS: BMI 23.9
[2024-01-08] MEDS: VENTOLIN NEBULES 2.5 MG INH ×3 (06:19→19:21)
[2024-01-08] MEDS: PULMICORT 0.5 MG INH ×2 (06:19→19:21)
[2024-01-08 07:19] LABS: Hematocrit 30.9 % (39.0-52.0); Hemoglobin 10.2 g/dL (13.0-18.0); Mean Corpuscular Hgb 28.5 pg (27.0-31.0); Mean Corpuscular Volume 86.3 fL (80.0-94.0); Mean Platelet Volume 8.8 fL (7.4-10.4); Platelet Count 454 10^3/uL (130-400); Red Blood Cell Count 3.58 10^6/uL (4.70-6.10); Red Cell Dist. Width 13.2 % (11.5-14.5); White Blood Cell Count 10.3 10^3/uL (4.8-10.8)
[2024-01-08 07:22] LABS: Blood Urea Nitrogen 24 mg/dl (9-20); Calcium 8.7 mg/dl (8.4-10.2); Carbon Dioxide 26 mmol/L (22-30); Chloride 107 mmol/L (98-107); Estimated Creatinine Clearance 42 ml/min; Glucose 91 mg/dl (70-99); Sodium 141 mmol/L (135-145); eGFR > 60.00
[2024-01-08 07:45] VITALS: BP 119/70
[2024-01-08 08:18] LABS: % Eosinophils 10.8 % (0-6); % Lymphocytes 15.3 % (20.5-51.1); % Monocytes 12.7 % (1.7-9.3); % Neutrophils 54.2 % (42.2-75.2); Absolute Basophils 0.1 10^3/uL (0-0.2); Absolute Eosinophils 1.1 10^3/uL (0-0.7); Absolute Immature Granulocytes 0.6 10^3/uL (0-0.05); Absolute Lymphocytes 1.6 10^3/uL (1.2-3.4); Absolute Monocytes 1.3 10^3/uL (0.1-0.6); Absolute Neutrophils 5.6 10^3/uL (1.4-6.5); Nucleated Red Blood Cells % 0 % (-)
--- NOTE | 2024-01-08 09:07 | W.PN.GI.CBS2 ---
Today's Communication / Plan
-
Adv to low residue diet
GI will sign off
C/w miralax and senna adjunct faculty for medical terminology
OP FU with myself and consideration of colonoscopy then
Assessment / Plan
-
Jay is an 88-year-old man with a history of PE and DVT and marked hyponatremia with Na down to 119 who had 1 day of nausea and emesis likely secondary to ileus and severe constipation without BM in about 2 wks. AXR Moderate small bowel
dilatation. Minimally progressed. Probably due to small bowel ileus. Obstruction not excluded. Moderate fecal material in the colon. Mostly in the right colon. Slightly improved. He is not clear if ever had colonoscopy before.
Impression
-ileus and severe constipation
CTAP IV and oral contrast with SB distension without obstruction
-hyponatremia
-PE/DVT
-new onset afib
-elevated trop with non ischemic Myocardial injury
-GERD
-Tapia's esophagus
Plan
- Pt pulled NGT out 01/04, copious BMs 01/05 (after 2.5wks without BM)
- AXR 01/06 improved
- Adv to lowr esidue diet
- Miralax and senna daily basis
- FU OP to consider colonoscopy.
GI will sign off please call for questions
Subjective
Subjective
Date of Service: January 08, 2024
No further abd pain, nausea/vomitnig. Tolerating FLD without issue. Passing BMs
Objective
Data Reviewed
Laboratory Data:
Laboratory Results
01/08/24 04:56
01/08/24 04:56
Laboratory Results
PT 16.3 Sec (11.4-14.6) H 12/25/23 08:29
INR 1.30 12/25/23 08:29
APTT Cancelled 01/07/24 13:45
Total Bilirubin 2.0 mg/dl (0.2-1.3) H 12/24/23 23:45
AST 51 U/L (17-59) 12/24/23 23:45
ALT 20 U/L (0-50) 12/24/23 23:45
Alkaline Phosphatase 95 U/L (38-126) 12/24/23 23:45
Vital Signs and I&O:
Vital Signs
Temp Pulse Resp BP Pulse Ox
98 F 91 20 119/70 94
01/08/24 07:45 01/08/24 07:45 01/08/24 07:45 01/08/24 07:45 01/08/24 07:45
I&O
01/07/24 01/08/24 01/09/24
06:59 06:59 06:59
Intake Total 1939 720 / 720
Balance 1939 720 / 720
Physical Exam
Physical Exam
GEN: No acute distress, conversant, pleasant
HEENT: anicteric, extraocular movements intact, clear oropharynx without exudates
GI: soft, mildly-distended, not tender to palpation, normal active bowel sounds, no hepatosplenomegaly
EXT: warm, well perfused, trace edema bilaterally
NEURO: AAOx3, non-focal
[2024-01-08] MEDS: TOPROL XL 25 MG PO (09:17)
[2024-01-08] MEDS: SENOKOT 8.6 MG PO (09:17)
[2024-01-08] MEDS: MIRALAX 17 GRAMS PO (09:18)
[2024-01-08] MEDS: ELIQUIS 5 MG PO ×2 (09:18→19:49)
[2024-01-08] MEDS: PEPCID 20 MG PO ×2 (10:33→19:49)
[2024-01-08 11:15] VITALS: BP 128/73
--- NOTE | 2024-01-08 11:44 | W.PN.HOSP.TC ---
Today's Communication/Plan
-
dc to SNF in 24 hours
Assessment / Plan
Assessment / Plan
Assessment:
Small bowel ileus
- suspect multifactorial from pain meds, immobility, constipation
- Obs series: progressed findings suggesting moderate probable small bowel ileus. Developing obstruction cannot be completely excluded. Moderate fecal material throughout the colon.
- repeat xray with improvement
- NGT removed after successful clamp trial
- aggressive bowel regimen with several BMs in past 24 hours
- at discharge will continue LRD, bowel regimen and GI f/u
DARIUS, likely pre-renal from hypotension noted 12/31
- Cr improved from 2.0 to 1.1
- hold nephrotoxins
Acute bilateral PE
Non-Ischemic Myocardial Injury secondary to the above
- CT with bilateral main pulmonary artery, extending into segmental vessels. no heart strain.
- Dopplers: L nonocclusive clot involving the left femoral vein, popliteal vein, peroneal vein, and posterior tibial vein. There is also nonocclusive clot within the visualized proximal profunda femoris vein
- trop peaked at .554
- BNP elevated
- Echo: normal LVEF, but RV enlargement with decreased function (Graves sign). repeat in 3-6 months
- continue supportive care/symptom control
- continue Eliquis
- Cardiology signed off
- Pulm signed off
bilateral foot pain
- reviewed with Pulmonary, not related to DVT
- normal uric acid
- documented that patient was placed on Colchicine for presumed gout but confirmed with RN/Pharmacy and never received Colchicine
- symptoms much improved today and continues to be asymptomatic at present, will monitor for now and re-assess if becomes symptomatic again.
Leukocytosis with chronic eosinophilia
- ID evaluated; no infectious etiology
- PPI switched to Famotidine and other non-essential meds stopped. Later PPI re-added for +N/V (noted to have rising eosinophilia when re-introduced)
- OP f/u in CBC in 4-6 weeks
Left upper back pain
- does not sound pleuritic, most consistent with muscular/arthritic
Acute Hyponatremia
- Likely secondary to increased fluid intake over the past 3 days + HCTZ use + increased ADH state secondary to pain, dyspnea, pulmonary process.
- No clear symptoms at this time attributable to Na level.
- Fluid restrict
- continue daily prn IV Lasix today; transitioned to Lasix 20mg daily Thursday 12/28 and stay off HCTZ permanently
- follow Na, 119-->120-->121-->124-->126-->128-->133-->135-->141
New onset parox A.fib
- continue BB for rate control
- continue Eliquis; renally dosed
Benign Hypertension
- Continue metoprolol; may need further titration
- stay off HCTZ; holding Losartan and Lasix for DARIUS
Moderate Persistent Asthma
- No active wheezing appreciated on exam, SpO2 is acceptable on room air.
- Continue budesonide. Albuterol PRN.
- Follow for any changes/new symptoms.
BPH/OAB
History of Prostate Cancer s/p XRT
- Hold OAB medications acutely.
- Bladder scan protocols.
Vomiting likely from morphine side effect
- prn anti-emetics
DVT Prophylaxis: Eliquis
Code Status: DNR/DNI
Anticipated Discharge: Within 24 hours
Subjective/Interval History
-
Date of Service: January 08, 2024
tolerating FLD; no nausea/vomiting
having BMs
Objective Data
-
Labs:
Laboratory Results
01/08/24
04:56
WBC 10.3
Hgb 10.2 L
Hct 30.9 L
Plt Count 454 H
Sodium 141
Potassium 4.0
Chloride 107
Carbon Dioxide 26
BUN 24 H
Creatinine 1.1
Glucose 91
Calcium 8.7
Vital Signs:
Vital Signs
Temp Pulse Resp BP Pulse Ox
98 F 90 20 120/70 94
01/08/24 07:45 01/08/24 09:17 01/08/24 07:45 01/08/24 09:17 01/08/24 09:00
I&O
01/07/24 01/08/24 01/09/24
06:59 06:59 06:59
Intake Total 1939 720 / 720
Balance 1939 720 / 720
Physical Exam
-
General: No Apparent Distress
HEENT: Normocephalic and Atraumatic
Respiratory: Negative Wheezes
Cardiac: Regular Rhythm and S1/S2
GI: Soft
Neuro: AO x 3
Hematologic / Lymphatic: No Lymphadenopathy
Psych: Calm
Data Reviewed
-
Total Time Spent with Patient (in minutes): 41
Labs: Labs Reviewed by me
[2024-01-08] MEDS: LOPRESSOR IV (12:30)
[2024-01-08 15:40] VITALS: BP 122/71
--- NOTE | 2024-01-08 15:54 | CM ---
Addendum entered by Jillian Torrez 01/08/24 17:23:
tee from called to approve 7 days with nrd auth [id number].call review to [phone].sent text to elsie with info.patient will need van transport to [facility] tomorrow.
Original Note:
patient with bl pe on eliquis,tolerating full liquids,to advance diet.tt from attending to send patient to snf tomorrow.had a bed at [facility].called [facility] and they can take patient tomorrow.covid test ordreed.elsie is off tomorrow but asked
us to call to facility and speak with her coverage to set patient up.
called [employer] m/c insurance to start auth for [facility].i spoke with kelly.pending auth #[id number].kelly will get back to me or leave [facility].
phone number to call report is [phone] and fax number is [phone].
[2024-01-08 16:35] LABS: COVID-19 Antigen Negative (Negative)
[2024-01-08 19:30] VITALS: BP 109/72
[2024-01-08] MEDS: SENOKOT PO (19:58)
[2024-01-08 23:54] VITALS: BP 100/58
[2024-01-09 03:25] VITALS: BP 105/68
[2024-01-09 06:00] VITALS: BMI 23.6
[2024-01-09 06:55] LABS: Blood Urea Nitrogen 18 mg/dl (9-20); Calcium 8.8 mg/dl (8.4-10.2); Carbon Dioxide 24 mmol/L (22-30); Chloride 108 mmol/L (98-107); Estimated Creatinine Clearance 46 ml/min; Glucose 99 mg/dl (70-99); Potassium 4.1 mmol/L (3.5-5.1); Sodium 139 mmol/L (135-145); eGFR > 60.00
[2024-01-09 07:10] LABS: Hematocrit 30.8 % (39.0-52.0); Hemoglobin 10.3 g/dL (13.0-18.0); Mean Corp Hgb Conc. 33.4 g/dL (33.0-37.0); Mean Corpuscular Hgb 29.3 pg (27.0-31.0); Mean Corpuscular Volume 87.7 fL (80.0-94.0); Mean Platelet Volume 8.9 fL (7.4-10.4); Platelet Count 412 10^3/uL (130-400); Red Blood Cell Count 3.51 10^6/uL (4.70-6.10); Red Cell Dist. Width 13.3 % (11.5-14.5); White Blood Cell Count 9.5 10^3/uL (4.8-10.8)
[2024-01-09] MEDS: PULMICORT 0.5 MG INH (07:16)
[2024-01-09] MEDS: VENTOLIN NEBULES 2.5 MG INH (07:16)
[2024-01-09 07:31] VITALS: BP 130/78
[2024-01-09 07:51] LABS: % Basophils 1.1 % (0-2); % Eosinophils 12.2 % (0-6); % Immature Granulocytes 6.3 % (0-0.5); % Monocytes 13.4 % (1.7-9.3); Absolute Basophils 0.1 10^3/uL (0-0.2); Absolute Eosinophils 1.2 10^3/uL (0-0.7); Absolute Immature Granulocytes 0.6 10^3/uL (0-0.05); Absolute Lymphocytes 1.6 10^3/uL (1.2-3.4); Absolute Monocytes 1.3 10^3/uL (0.1-0.6); Absolute Neutrophils 4.7 10^3/uL (1.4-6.5); Nucleated Red Blood Cells % 0 % (-)
[2024-01-09] MEDS: ELIQUIS 5 MG PO (09:10)
[2024-01-09] MEDS: MIRALAX PO (09:10)
[2024-01-09] MEDS: SENOKOT PO (09:10)
[2024-01-09] MEDS: TOPROL XL 25 MG PO (09:10)
[2024-01-09] MEDS: PEPCID 20 MG PO (09:11)
--- NOTE | 2024-01-09 10:30 | CM ---
Addendum entered by Raquel Rae 01/09/24 12:29:
Mr. Álvarez will be transferred to [facility] today via w/c van. Covid negative; Emilee at [facility] notified of result and transport time. Jay's daughter will call to pay for w/c van; $120 to [facility].
Call received from [facility] who was looking for information regarding discharge so they could resume services. I advised that Jay was being discharge to [facility] for short term rehab. [place] will contact [facility] to
coordinate resumption of care when Jay is ready to return home.
[facility] Report: [phone]
[facility]
Original Note:
Mr. Álvarez is ready for discharge today and bed available at [facility]. [facility] authorization [id number] approved for 7 days with next review date of 01/15/2024. [facility] requesting covid test prior to transfer; provided NRD and phone number to
call review update: [phone].
Dr. Lopez aware of need for covid test request.
W/C van transport to be arranged once covid is resulted. will continue to follow to finalize transfer plans.
[2024-01-09 11:32] VITALS: BP 120/60
--- NOTE | 2024-01-09 11:55 | W.PN.HOSP.TC ---
Today's Communication/Plan
-
dc to SNF
Assessment / Plan
Assessment / Plan
Assessment:
Small bowel ileus
- suspect multifactorial from pain meds, immobility, constipation
- Obs series: progressed findings suggesting moderate probable small bowel ileus. Developing obstruction cannot be completely excluded. Moderate fecal material throughout the colon.
- repeat xray with improvement
- NGT removed after successful clamp trial
- aggressive bowel regimen with several BMs in past 24 hours
- at discharge will continue LRD, bowel regimen and GI f/u
DARIUS, likely pre-renal from hypotension noted 12/31
- Cr improved from 2.0 to 1.1
Acute bilateral PE
Non-Ischemic Myocardial Injury secondary to the above
- CT with bilateral main pulmonary artery, extending into segmental vessels. no heart strain.
- Dopplers: L nonocclusive clot involving the left femoral vein, popliteal vein, peroneal vein, and posterior tibial vein. There is also nonocclusive clot within the visualized proximal profunda femoris vein
- trop peaked at .554
- BNP elevated
- Echo: normal LVEF, but RV enlargement with decreased function (Graves sign). repeat in 3-6 months
- continue supportive care/symptom control
- continue Eliquis
- Cardiology.pulm f/u OP
bilateral foot pain
- reviewed with Pulmonary, not related to DVT
- normal uric acid
- documented that patient was placed on Colchicine for presumed gout but confirmed with RN/Pharmacy and never received Colchicine
- symptoms much improved today and continues to be asymptomatic at present, will monitor for now and re-assess if becomes symptomatic again.
Leukocytosis with chronic eosinophilia
- ID evaluated; no infectious etiology
- PPI switched to Famotidine and other non-essential meds stopped. Later PPI re-added for +N/V (noted to have rising eosinophilia when re-introduced)
- OP f/u in CBC in 4-6 weeks
Left upper back pain
- does not sound pleuritic, most consistent with muscular/arthritic
Acute Hyponatremia
- Likely secondary to increased fluid intake over the past 3 days + HCTZ use + increased ADH state secondary to pain, dyspnea, pulmonary process.
- No clear symptoms at this time attributable to Na level.
- Fluid restrict
- DC off diuretics as sodium overall stable
- follow Na, 119-->120-->121-->124-->126-->128-->133-->135-->141
New onset parox A.fib
- continue BB for rate control
- continue Eliquis; renally dosed
Benign Hypertension
- Continue metoprolol; may need further titration
- stay off HCTZ; continue Losartan
Moderate Persistent Asthma
- No active wheezing appreciated on exam, SpO2 is acceptable on room air.
- Continue budesonide. Albuterol PRN.
- Follow for any changes/new symptoms.
BPH/OAB
History of Prostate Cancer s/p XRT
- Hold OAB medications acutely.
- Bladder scan protocols.
Vomiting likely from morphine side effect
- prn anti-emetics
DVT Prophylaxis: Eliquis
Code Status: DNR/DNI
More than 30 minutes spent in discharge including
Final examination of the patient
Summarizing hospital stay
Instructions for continuing care to all relevant caregivers
Preparation of discharge records, prescriptions, and referral forms
Total time spent (in minutes): 41
Anticipated Discharge: Today
Subjective/Interval History
-
Date of Service: January 09, 2024
doing well no complaints
tolerating diet
Objective Data
-
Labs:
Laboratory Results
01/09/24
04:49
WBC 9.5
Hgb 10.3 L
Hct 30.8 L
Plt Count 412 H
Sodium 139
Potassium 4.1
Chloride 108 H
Carbon Dioxide 24
BUN 18
Creatinine 1.0
Glucose 99
Calcium 8.8
Vital Signs:
Vital Signs
Temp Pulse Resp BP Pulse Ox
97.5 F 88 18 120/60 98
01/09/24 11:32 01/09/24 11:32 01/09/24 11:32 01/09/24 11:32 01/09/24 11:32
I&O
01/08/24 01/09/24 01/10/24
06:59 06:59 06:59
Intake Total 720 / 720
Balance 720 / 720
Physical Exam
-
General: No Apparent Distress
HEENT: Normocephalic and Atraumatic
Respiratory: Negative Wheezes
Cardiac: Regular Rhythm
GI: Soft
Genito-urinary: No Costovertebral Tender
Musculoskeletal: No Edema
Neuro: AO x 3
Hematologic / Lymphatic: No Lymphadenopathy
Psych: Calm
Data Reviewed
-
Total Time Spent with Patient (in minutes): 41
Labs: Labs Reviewed by me
--- NOTE | 2024-01-09 11:58 | W.DS.TRANS ---
DC Summary - [employer] [facility]
-
Discharge Instructions:
Discharge Diagnosis/Procedures Acute PE, hyponatremia, ankle pains, small bowel
ileus/constipation, eosinophilia
Diet Low Residue,Low Cholesterol
Activity As tolerated
Others Tests repeat Echo in 3-6 months with Cardiology
Other Services OT,PT
Instructions:
Stand-Alone Forms:
Changes to Home Medications: Yes
Discharge Medications:
DC Medications w/original date entered in [facility]
fenofibrate nanocrystallized 48 mg tablet 48 mg PO QPM High cholesterol 10/05/12
uqxfjovl-kpo-sbnwy acid 0.4 mg-lycopene 300 mcg-lutein 250 mcg tablet (Centrum Silver) 1 ea PO DAILY Supplement 10/05/12
losartan 50 mg tablet 100 mg PO DAILY Blood pressure 09/09/18
omega 1-wla-chl-fish oil 900 mg-1,400 mg capsule,delayed release (Fish Oil) 2 ea PO BID Supplement 07/22/20
aspirin 81 mg tablet,delayed release 81 mg PO DAILY Blood Clot Prevention/Tx 07/11/23
fexofenadine 60 mg tablet 180 mg PO HS Allergies 07/11/23
montelukast 10 mg tablet (Singulair) 10 mg PO HS Lung/Breathing Issues 07/11/23
vibegron 75 mg tablet (Gemtesa) 75 mg PO DAILY Urinary Issue 07/11/23
albuterol sulfate 2.5 mg/3 mL (0.083 %) solution for nebulization 2.5 mg inhalation TID Lung/Breathing Issues 12/25/23
budesonide 0.5 mg/2 mL suspension for nebulization 0.5 mg inhalation BID Lung/Breathing Issues 12/25/23
coenzyme Q10 100 mg capsule (CoQ-10) 100 mg PO BID Supplement 12/25/23
solifenacin 10 mg tablet (Vesicare) 10 mg PO DAILY Urinary Issue 12/25/23
acetaminophen 325 mg tablet 650 mg (2 x 325 mg) PO Q4HPRN PRN Mild Pain / Temp > 101 #100 tabs 01/08/24
apixaban 5 mg tablet (Eliquis) 5 mg PO BID #60 tabs 01/08/24
famotidine 20 mg tablet 20 mg PO BID #60 tabs 01/08/24
metoprolol succinate 25 mg tablet,extended release 24 hr 25 mg PO DAILY #30 tabs 01/08/24
polyethylene glycol 3350 17 gram oral powder packet (HealthyLax) 17 g PO DAILY #30 ea 01/08/24
sennosides 8.6 mg tablet (Senna Laxative) 8.6 mg PO BID #60 tabs 01/08/24
Home Medication Changes
HCTZ stopped
PPI stopped
Pending Results: No
Total time spent discharging patient (in min): 41
== END 2024-01-09 14:30 | DRG 176 ==
LOC: 4 EAST ACU 02:13
PROVIDERS: Internal Medicine; Student in an Organized Health Care Education/Training Program; ADMITTING PHYSICIAN Hospitalist; ATTENDING PHYSICIAN Internal Medicine; CONSULT PHYSICIAN Internal Medicine; CONSULT PHYSICIAN Student in an Organized Health Care Education/Training Program; EMERGENCY PHYSICIAN Emergency Medicine; FAMILY PHYSICIAN Internal Medicine; OTHER PHYSICIAN Internal Medicine Cardiovascular Disease; OTHER PHYSICIAN Internal Medicine Critical Care Medicine
DX: I26.99 Other pulmonary embolism without acute cor pulmonale (principal); K56.7 Ileus, unspecified; N17.9 Acute kidney failure, unspecified; I5A Non-ischemic myocardial injury (non-traumatic); E87.1 Hypo-osmolality and hyponatremia; B37.0 Candidal stomatitis; J90 Pleural effusion, not elsewhere classified; I82.4Z2 Acute embolism and thrombosis of unspecified deep veins of left distal lower extremity; K56.609 Unspecified intestinal obstruction, unspecified as to partial versus complete obstruction; Z79.01 Long term (current) use of anticoagulants; I95.9 Hypotension, unspecified; D72.10 Eosinophilia, unspecified; I11.0 Hypertensive heart disease with heart failure; I50.9 Heart failure, unspecified; I27.20 Pulmonary hypertension, unspecified; J45.40 Moderate persistent asthma, uncomplicated; I48.0 Paroxysmal atrial fibrillation; I35.0 Nonrheumatic aortic (valve) stenosis; K22.70 Barrett's esophagus without dysplasia; Z11.52 Encounter for screening for COVID-19
CPT/HCPCS: 71046; 71275; 73600; 74018; 74022; 74177; 80048; 80053; 80061; 81003; 82533; 83880; 83930; 83935; 84145; 84300; 84443; 84484; 84550; 85025; 85027; 85379; 85610; 85652; 85730; 87811; 93005; 93306; 93970; 94640; 96365; 97116; 97163; 97166; 97530; 97535; 99291; Q9967

== ENCOUNTER → 2024-02-12 11:51 | Outpatient (REF) | payer OTHER, SELFPAY ==
[2024-02-12 15:50] LABS: ALT (SGPT) 13 U/L (0-50); AST (SGOT) 21 U/L (17-59); Albumin 3.2 g/dl (3.5-5.0); Alkaline Phosphatase 92 U/L (38-126); Blood Urea Nitrogen 14 mg/dl (9-20); Calcium 9.2 mg/dl (8.4-10.2); Carbon Dioxide 24 mmol/L (22-30); Chloride 105 mmol/L (98-107); Glucose 115 mg/dl (70-99); Potassium 3.9 mmol/L (3.5-5.1); Sodium 143 mmol/L (135-145); Total Bilirubin 0.7 mg/dl (0.2-1.3); Total Protein 6.8 g/dl (6.3-8.2); eGFR > 60.00
[2024-02-12 15:54] LABS: % Basophils 0.8 % (0-2); % Eosinophils 18.5 % (0-6); % Immature Granulocytes 0.5 % (0-0.5); % Monocytes 11.3 % (1.7-9.3); % Neutrophils 54.9 % (42.2-75.2); Absolute Basophils 0.1 10^3/uL (0-0.2); Absolute Eosinophils 1.5 10^3/uL (0-0.7); Absolute Lymphocytes 1.1 10^3/uL (1.2-3.4); Absolute Monocytes 0.9 10^3/uL (0.1-0.6); Absolute Neutrophils 4.4 10^3/uL (1.4-6.5); Hematocrit 35.2 % (39.0-52.0); Hemoglobin 11.4 g/dL (13.0-18.0); Mean Corp Hgb Conc. 32.4 g/dL (33.0-37.0); Mean Corpuscular Hgb 28.9 pg (27.0-31.0); Mean Corpuscular Volume 89.1 fL (80.0-94.0); Mean Platelet Volume 9.1 fL (7.4-10.4); Nucleated Red Blood Cells % 0 % (-); Platelet Count 308 10^3/uL (130-400); Red Blood Cell Count 3.95 10^6/uL (4.70-6.10); Red Cell Dist. Width 14.6 % (11.5-14.5)
[2024-02-12 16:14] LABS: NT-proBNP 1570 pg/ml
[2024-02-12 16:20] LABS: TSH Reflex To Free T4 2.05 uIU/ml (0.47-4.68)
== END ==
LOC: HWRAD 11:51
PROVIDERS: ATTENDING PHYSICIAN Student in an Organized Health Care Education/Training Program; FAMILY PHYSICIAN Internal Medicine; OTHER PHYSICIAN Internal Medicine Cardiovascular Disease; REFERRING PHYSICIAN Internal Medicine Critical Care Medicine
DX: R41.89 Other symptoms and signs involving cognitive functions and awareness (principal); R06.89 Other abnormalities of breathing; R60.0 Localized edema
CPT/HCPCS: 36415; 71046; 80053; 83880; 84443; 85025

== ENCOUNTER → 2024-02-19 11:31 | Outpatient (REF) | payer OTHER, SELFPAY ==
[2024-02-19 16:28] LABS: Urine Albumin Negative (Neg - Trace); Urine Bilirubin Negative (Negative); Urine Character Clear (Clear); Urine Color Yellow; Urine Glucose Negative (Negative); Urine Ketone Negative (Negative); Urine Leukocyte Negative (Negative); Urine Nitrite Negative (Negative); Urine Occult Blood 3+ (Negative); Urine Urobilinogen Negative (Neg - 1+)
[2024-02-19 18:23] LABS: Urine Red Blood Cell 30-40 /HPF (0-2)
== END ==
LOC: HWRAD 11:31
PROVIDERS: ATTENDING PHYSICIAN Student in an Organized Health Care Education/Training Program; REFERRING PHYSICIAN Internal Medicine
DX: R93.89 Abnormal findings on diagnostic imaging of other specified body structures (principal); R41.89 Other symptoms and signs involving cognitive functions and awareness
CPT/HCPCS: 71250; 81003; 81015; 87086

== ENCOUNTER → 2024-02-24 09:54 | Outpatient (REF) | payer OTHER, SELFPAY ==
[2024-02-24 10:15] VITALS: BP 170/100; BP_SYST 76
[2024-02-24 11:00] VITALS: BP 163/76
[2024-02-24 11:00] LABS: Body Fluid pH < 6.80
[2024-02-24 11:17] LABS: Body Fluid Glucose 58 mg/dl; Body Fluid LDH 279 U/L; Body Fluid Protein 3.8 g/dl
[2024-02-24 11:18] LABS: Body Fluid Mononuclear 56.6 %; Body Fluid Polymorphonuclear 43.4 %; Body Fluid WBC 431 /CUMM
[2024-02-24 11:30] LABS: Body Fluid Second Tech EF
== END ==
LOC: RADI 09:54
PROVIDERS: ATTENDING PHYSICIAN Internal Medicine Critical Care Medicine; FAMILY PHYSICIAN Internal Medicine
DX: J90 Pleural effusion, not elsewhere classified (principal)
CPT/HCPCS: 88305; 32555; 71045; 82945; 83615; 83986; 84157; 87015; 87070; 87102; 87116; 87205; 88112; 89051

== ENCOUNTER 2024-03-14 17:02 | Emergency (ER) | payer OTHER, SELFPAY ==
[2024-03-14] VITALS (9 sets, daily range): BP systolic 183–214; BP diastolic 70–117; BMI 22.9
--- NOTE | 2024-03-14 17:50 | ED.GENMED ---
History of Present Illness
<Elaine Hansen PA-C - Last Filed: 03/14/24 21:07>
General
Chief Complaint: Blood Pressure Problem
Source: patient
Exam Limitations: none
Time Seen by Provider: 03/14/24 17:50
Nursing documentation reviewed up to this point in time: agreed with
History of Present Illness
History of Present Illness:
88-year-old male with a past medical history of A-fib on Eliquis, hypertension compliant with his medications, CVA, PE, presents emergency department today with concerns of elevated blood pressure. Patient reports that he checks his blood pressure
multiple times a day every day. Patient reports that this morning, he noted that he had a frontal headache and when he checked his blood pressure, he saw that systolically his blood pressure was in the 200s. His baseline blood pressure runs in the
130s to 140s. He is compliant with his metoprolol and losartan. The last change his medications was in December when his metoprolol was decreased from 50-25. He is unsure why. He states that his headache is now resolved. He denies chest pain,
shortness of breath, nausea, vomiting, syncopal episodes, decreased urinary output. He denies back pain.
Past History
<Elaine Hansen PA-C - Last Filed: 03/14/24 21:07>
Past History
ED Past Medical History: Asthma, Cancer (Prostate CA with Radiation), COPD, GERD, HTN (borderline) and Other (Bronchitis, BPH, Chronic sinus infections, DVT)
ED Past Surgical History: Orthopedic (THUMB) and Other (UMBILICAL AND VENTRAL HERNIA REPAIR 01/25/13)
Social History
Tobacco: 2nd hand smoke exposure
Alcohol: None
Drug: None
Personal:
Living: alone
Employment: Retired
Family History
Family History: Hypertension; Negative Sudden
Review of Systems
<Elaine Hansen PA-C - Last Filed: 03/14/24 21:07>
Review of Systems
All Other Systems: ROS reviewed and negative except as documented in HPI and ROS
Phy Exam
<Elaine Hansen PA-C - Last Filed: 03/14/24 21:07>
Physical Exam
Physical Exam:
General: Patient is well appearing and in no acute distress; non-toxic
Skin: Warm and dry, no rashes or lesions
Head: Normocephalic, atraumatic
Eyes: Sclera non-icteric. EOMs intact. PERRLA.
Cardiac: Regular rate and rhythm, no murmurs
Peripheral Vascular: Mild right-sided pedal edema
Pulm: Normal respiratory effort, no wheezes, rales,
Abdomen: No abdominal tenderness to palpation
Neuro: CN II-XII intact, no focal neurologic deficits. 5/5 strength in bilateral upper and lower extremities.
Psychiatric: Appropriate mood and affect.
Course
<Elaine Hansen PA-C - Last Filed: 03/14/24 21:07>
Orders/Labs/Results
Orders:
Orders
03/14/24 17:52
CT Head W/o Iv Contrast Urgent
Comment:
Reason For Exam: frontal headache
03/14/24 17:57
Complete Blood Count/With Diff Urgent
Comprehensive Metabolic Panel Urgent
03/14/24 19:05
Electrocardiogram (*1) Urgent
Reason for Study: Hypertension, Benign
EKG- Treatment ONCE
03/14/24 19:12
Troponin I Urgent
03/14/24 19:53
Clonidine [Catapres] 0.1 mg PO NOW STA
Abnormal Lab Results
03/14/24
17:57
RBC 4.62 L 10^6/uL
(4.70-6.10)
Hgb 12.9 L g/dL
(13.0-18.0)
Hct 38.8 L %
(39.0-52.0)
Absolute Eos (auto) 1.2 H 10^3/uL
(0-0.7)
Lymphocytes % 17.8 L %
(20.5-51.1)
Eosinophils % 15.5 H %
(0-6)
Glucose 111 H mg/dl
(70-99)
03/14/24 17:57
03/14/24 17:57
Vital Signs
Initial and Last Documented VS:
Initial Vital Signs
Temp Pulse Resp BP Pulse Ox
98.0 F 63 18 200/91 98
03/14/24 17:04 03/14/24 17:04 03/14/24 17:04 03/14/24 17:04 03/14/24 17:04
Last Documented Vital Signs
Temp Pulse Resp BP Pulse Ox
98.0 F 63 15 183/88 97
03/14/24 17:04 03/14/24 20:45 03/14/24 20:45 03/14/24 20:43 03/14/24 18:00
<Tara Regan MD - Last Filed: 03/14/24 19:45>
Orders/Labs/Results
Orders:
Orders
03/14/24 17:52
CT Head W/o Iv Contrast Urgent
Comment:
Reason For Exam: frontal headache
03/14/24 17:57
Complete Blood Count/With Diff Urgent
Comprehensive Metabolic Panel Urgent
03/14/24 19:05
Electrocardiogram (*1) Urgent
Reason for Study: Hypertension, Benign
EKG- Treatment ONCE
03/14/24 19:12
Troponin I Urgent
03/14/24 19:53
Clonidine [Catapres] 0.1 mg PO NOW STA
Abnormal Lab Results
03/14/24
17:57
RBC 4.62 L 10^6/uL
(4.70-6.10)
Hgb 12.9 L g/dL
(13.0-18.0)
Hct 38.8 L %
(39.0-52.0)
Absolute Eos (auto) 1.2 H 10^3/uL
(0-0.7)
Lymphocytes % 17.8 L %
(20.5-51.1)
Eosinophils % 15.5 H %
(0-6)
Glucose 111 H mg/dl
(70-99)
03/14/24 17:57
03/14/24 17:57
Vital Signs
Initial and Last Documented VS:
Initial Vital Signs
Temp Pulse Resp BP Pulse Ox
98.0 F 63 18 200/91 98
03/14/24 17:04 03/14/24 17:04 03/14/24 17:04 03/14/24 17:04 03/14/24 17:04
Last Documented Vital Signs
Temp Pulse Resp BP Pulse Ox
98.0 F 63 15 183/88 97
03/14/24 17:04 03/14/24 20:45 03/14/24 20:45 03/14/24 20:43 03/14/24 18:00
Chastitylt;Elaine Hansen PA-C - Last Filed: 03/14/24 21:07>
MDM/Problems Addressed
Differential Diagnosis Includes:
Differentials include intraparenchymal hemorrhage, essential hypertension, hypertensive urgency, tension headache,
MDM/Problems Addressed:
88-year-old male presents emergency department today with concerns of high blood pressure. He noted a headache today with this as well. His blood pressure was systolically in the 190s to 200s. He also complained of a headache earlier which has
now resolved.. On physical exam, he is very well-appearing, he is in no acute distress, he has a nonfocal neurologic exam. CT of the head was obtained which was negative for any acute intracranial abnormalities. EKG shows no concerning ischemic
changes, troponin undetectable, CBC and CMP unremarkable. Considering patient now asymptomatic, his blood pressure still persistently elevated, did reach out to patient's cardiology group who feels that patient can likely be safely discharged with
close outpatient follow-up. Patient was given a dose of clonidine here and was observed for period of time, patient's blood pressure came down to 183/88. Patient has not developed any new symptoms. Patient stable for discharge. Discussed return
precautions, [facility] cardiology states that they will call patient to get patient in for sooner outpatient follow-up appointment within this week. Patient stable for discharge.
Chronic conditions affecting care:
A-fib on Eliquis, PE, DVT, hypertension, hyperlipidemia
<Elaine Hansen PA-C - Last Filed: 03/14/24 21:07>
*Pulse Oximetry
Patient hypoxic: no
*EKG
Interpreted by ED Provider?: Yes
Interpretation: abnormal
Comparison EKG: changes noted (T wave inversion no longer evident in inferior and anterior leads)
Heart Rate: 64
Rate: normal
Rhythm: sinus
[place]: normal axis
Interval: normal interval
QRS Pattern: other (Left anterior fascicular block)
*Critical Care Note
Total Time (30-74mins, 75-104mins- exclusive of procedures): Not Applicable
Data Reviewed
Review of Other/Old Records Reveals: Records (Reviewed discharge summary from 12/13/2023, patient seen for acute hyponatremia and bilateral pulmonary embolisms. Reviewed previous ER physician documentation patient was seen for persistent hypertension
and had been trialed on different medications)
Source: patient and records
<Elaine Hansen PA-C - Last Filed: 03/14/24 21:07>
Patient Management
Escalation/DeEscalation of care consider admission/obs:
Admit not indicated, patient stable for discharge.
ED Attending Note
<Elaine Hansen PA-C - Last Filed: 03/14/24 21:07>
-
Portions of this chart may have been created with voice recognition software.� Occasional wrong word or��sound alike� substitutions may have occurred due to the inherent limitations of voice recognition software.
<Tara Regan MD - Last Filed: 03/14/24 19:45>
ED Attending Note
Patient seen and examined by attending physician: Yes
I performed the substantive portion of visit, reviewed & personally made and approve the management plan that is documented in note by myself or WIN.: Yes
ED Attending Note:
88-year-old male with longstanding history of hypertension complains of mild headache earlier today and noticed blood pressure was high which prompted his visit here. Patient is awake alert hard of hearing but pleasant making jokes with me.
Headache now resolved. Workup unremarkable here. Blood pressure noted to be elevated still, asymptomatic hypertension. Will discuss with cardiology recommendations before discharge
Discharge Plan
Departure
Patient Disposition: Home (Routine Discharge)
Date of Disposition: 03/14/24
Time of Disposition: 20:56
Patient with high blood pressure during this ER visit?: Yes
Condition: Good
Discharge Problem:
Hypertension
Instructions: High Blood Pressure (DC), BLOOD PRESSURE
Prescriptions:
No Action
Centrum Silver 1 EACH tablet
1 ea PO DAILY
fenofibrate nanocrystallized 48 MG tablet
48 mg PO QPM
losartan 50 MG tablet
100 mg PO DAILY
Rx Instructions:
07/11/23-PATIENT ONLY SUPPOSE TO BE TAKING ONE (100MG DAILY) BUT TAKES 2 DAILY (200MG DAILY) A DAY
Fish Oil 1 EACH capsule,delayed release(DR/EC)
2 ea PO BID
fexofenadine 60 mg Tablet
180 mg PO HS
aspirin 81 mg Tablet,Delayed Release (Dr/Ec)
81 mg PO DAILY
montelukast [Singulair] 10 mg Tablet
10 mg PO HS
Gemtesa 75 mg Tablet
75 mg PO DAILY
albuterol sulfate 2.5 mg /3 mL (0.083 %) Solution For Nebulization
2.5 mg INHALATION TID
budesonide 0.5 mg/2 mL Suspension For Nebulization
0.5 mg INHALATION BID
coenzyme Q10 [CoQ-10] 100 mg Capsule
100 mg PO BID
solifenacin [Vesicare] 10 mg Tablet
10 mg PO DAILY
sennosides [Senna Laxative] 8.6 mg Tablet
8.6 mg PO BID Qty: 60 0RF
acetaminophen 325 mg Tablet
650 mg PO Q4HPRN PRN (Reason: Mild Pain / Temp > 101) Qty: 100 0RF
polyethylene glycol 3350 [HealthyLax] 17 gram Powder In Packet
17 g PO DAILY Qty: 30 0RF
famotidine 20 mg Tablet
20 mg PO BID Qty: 60 0RF
metoprolol succinate 25 mg Tablet Extended Release 24 Hr
25 mg PO DAILY Qty: 30 0RF
Eliquis 5 mg Tablet
5 mg PO BID Qty: 60 0RF
Referrals:
Amador Westfall MD [Family Provider] -
Activity Restrictions/Additional Instructions:
Please check your blood pressure no more than once daily.
Please return to emergency department should you develop chest pain, shortness of breath, lightheadedness, dizziness, persistent headache, intractable nausea or vomiting, abdominal pain, syncopal episodes, or any other signs or symptoms concerning
to you.
You should receive a call from Dr. Gallegos's office. If you do not receive a call within the next 2 days, please call to schedule follow-up appointment.
Interventions
Interventions:
*Risk Screen - Suicide Last Done: 03/14/24 17:34
*General Assessment Last Done: 03/14/24 17:34
*Neglect/Abuse Screening Last Done: 03/14/24 18:30
ED- Fall Risk Assessment Last Done: 03/14/24 17:37
*ED COVID-19 Vaccine History Last Done: 03/14/24 17:33
ED- Cardiac Assessment Last Done: 03/14/24 17:37
ED- Neurological Assessment Last Done: 03/14/24 17:37
ED- Pulmonary Assessment Last Done: 03/14/24 17:37
Discharge Date and Time
Print Language: UPPER SORBIAN
[2024-03-14 18:14] LABS: % Basophils 0.8 % (0-2); % Eosinophils 15.5 % (0-6); % Immature Granulocytes 0.4 % (0-0.5); % Lymphocytes 17.8 % (20.5-51.1); % Monocytes 8.2 % (1.7-9.3); % Neutrophils 57.3 % (42.2-75.2); Absolute Basophils 0.1 10^3/uL (0-0.2); Absolute Eosinophils 1.2 10^3/uL (0-0.7); Absolute Lymphocytes 1.4 10^3/uL (1.2-3.4); Absolute Monocytes 0.6 10^3/uL (0.1-0.6); Absolute Neutrophils 4.5 10^3/uL (1.4-6.5); Hematocrit 38.8 % (39.0-52.0); Hemoglobin 12.9 g/dL (13.0-18.0); Mean Corp Hgb Conc. 33.2 g/dL (33.0-37.0); Mean Corpuscular Hgb 27.9 pg (27.0-31.0); Mean Platelet Volume 8.3 fL (7.4-10.4); Nucleated Red Blood Cells % 0 % (-); Platelet Count 285 10^3/uL (130-400); Red Blood Cell Count 4.62 10^6/uL (4.70-6.10); Red Cell Dist. Width 14.5 % (11.5-14.5); White Blood Cell Count 7.8 10^3/uL (4.8-10.8)
[2024-03-14 18:29] LABS: ALT (SGPT) 12 U/L (0-50); AST (SGOT) 24 U/L (17-59); Albumin 3.8 g/dl (3.5-5.0); Alkaline Phosphatase 84 U/L (38-126); Blood Urea Nitrogen 12 mg/dl (9-20); Calcium 9.4 mg/dl (8.4-10.2); Carbon Dioxide 27 mmol/L (22-30); Chloride 105 mmol/L (98-107); Estimated Creatinine Clearance 38 ml/min; Glucose 111 mg/dl (70-99); Potassium 4.1 mmol/L (3.5-5.1); Sodium 144 mmol/L (135-145); Total Bilirubin 0.8 mg/dl (0.2-1.3); Total Protein 7.7 g/dl (6.3-8.2); eGFR 58.17
[2024-03-14 19:49] LABS: Troponin I < 0.012 ng/ml
== END 2024-03-14 21:11 | disposition home or self-care (01) ==
LOC: EMR 17:02
PROVIDERS: Physician Assistant; EMERGENCY PHYSICIAN Emergency Medicine; FAMILY PHYSICIAN Internal Medicine
DX: I10 Essential (primary) hypertension (principal); I48.91 Unspecified atrial fibrillation; Z79.01 Long term (current) use of anticoagulants; Z77.22 Contact with and (suspected) exposure to environmental tobacco smoke (acute) (chronic); Z85.46 Personal history of malignant neoplasm of prostate; J44.89 Other specified chronic obstructive pulmonary disease; N40.0 Benign prostatic hyperplasia without lower urinary tract symptoms; Z86.718 Personal history of other venous thrombosis and embolism; Z86.73 Personal history of transient ischemic attack (TIA), and cerebral infarction without residual deficits
CPT/HCPCS: 99284; 70450; 80053; 84484; 85025; 93005

== ENCOUNTER → 2024-03-17 12:19 | Outpatient (REF) | payer OTHER, SELFPAY ==
[2024-03-17 16:28] LABS: PSA, Total - Diagnostic 0.62 ng/ml (0.0-4.0)
== END ==
LOC: HWLAB 12:19
PROVIDERS: ATTENDING PHYSICIAN Specialist; FAMILY PHYSICIAN Internal Medicine
DX: R97.21 Rising PSA following treatment for malignant neoplasm of prostate (principal)
CPT/HCPCS: 36415; 84153

== ENCOUNTER → 2024-05-06 13:52 | Outpatient (REF) | payer OTHER, MEDICARE, SELFPAY | LOC: RAD 13:52 | PROVIDERS: ATTENDING PHYSICIAN Nurse Practitioner Adult Health; FAMILY PHYSICIAN Internal Medicine | DX: I82.402 Acute embolism and thrombosis of unspecified deep veins of left lower extremity (principal) | CPT/HCPCS: 93971 ==

== ENCOUNTER → 2024-05-10 13:30 | Outpatient (REF) | payer OTHER, SELFPAY | LOC: HWRAD 13:30 | PROVIDERS: ATTENDING PHYSICIAN Internal Medicine Critical Care Medicine; FAMILY PHYSICIAN Internal Medicine; REFERRING PHYSICIAN Internal Medicine Cardiovascular Disease | DX: J90 Pleural effusion, not elsewhere classified (principal) | CPT/HCPCS: 71250 ==

== ENCOUNTER → 2024-05-11 11:00 | Outpatient (REF) | payer OTHER, SELFPAY | LOC: HWRCS 11:00 | PROVIDERS: ATTENDING PHYSICIAN Nurse Practitioner; FAMILY PHYSICIAN Internal Medicine | DX: I48.0 Paroxysmal atrial fibrillation (principal); I26.99 Other pulmonary embolism without acute cor pulmonale; I10 Essential (primary) hypertension; I34.0 Nonrheumatic mitral (valve) insufficiency | CPT/HCPCS: 93306 ==

== ENCOUNTER → 2024-06-09 15:07 | Outpatient (REF) | payer OTHER, SELFPAY | LOC: HWRAD 15:07 | DX: J18.9 Pneumonia, unspecified organism (principal) | CPT/HCPCS: 71046 ==

== ENCOUNTER → 2024-07-02 11:27 | Outpatient (REF) | payer OTHER, SELFPAY ==
[2024-07-02 16:06] LABS: PSA, Total - Diagnostic 1.31 ng/ml (0.0-4.0)
== END ==
LOC: HWLAB 11:27
PROVIDERS: ATTENDING PHYSICIAN Specialist; FAMILY PHYSICIAN Internal Medicine
DX: R97.21 Rising PSA following treatment for malignant neoplasm of prostate (principal)
CPT/HCPCS: 36415; 84153

== ENCOUNTER 2024-08-03 22:40 | Emergency (ER) | payer OTHER, SELFPAY ==
[2024-08-03 22:58] VITALS: BP 191/107
[2024-08-03 23:06] LABS: % Basophils 0.6 % (0-2); % Eosinophils 8.7 % (0-6); % Immature Granulocytes 1.4 % (0-0.5); % Lymphocytes 21.7 % (20.5-51.1); % Monocytes 11.5 % (1.7-9.3); % Neutrophils 56.1 % (42.2-75.2); Absolute Eosinophils 0.6 10^3/uL (0-0.7); Absolute Immature Granulocytes 0.1 10^3/uL (0-0.05); Absolute Lymphocytes 1.6 10^3/uL (1.2-3.4); Absolute Monocytes 0.8 10^3/uL (0.1-0.6); Absolute Neutrophils 4.1 10^3/uL (1.4-6.5); Hematocrit 40.7 % (39.0-52.0); Hemoglobin 13.4 g/dL (13.0-18.0); Mean Corp Hgb Conc. 32.9 g/dL (33.0-37.0); Mean Corpuscular Volume 88.1 fL (80.0-94.0); Mean Platelet Volume 8.6 fL (7.4-10.4); Nucleated Red Blood Cells % 0 % (-); Platelet Count 267 10^3/uL (130-400); Red Blood Cell Count 4.62 10^6/uL (4.70-6.10); Red Cell Dist. Width 13.9 % (11.5-14.5); White Blood Cell Count 7.2 10^3/uL (4.8-10.8)
[2024-08-03 23:29] LABS: ALT (SGPT) 15 U/L (0-50); AST (SGOT) 27 U/L (17-59); Albumin 3.8 g/dl (3.5-5.0); Alkaline Phosphatase 85 U/L (38-126); Blood Urea Nitrogen 16 mg/dl (9-20); Calcium 9.5 mg/dl (8.4-10.2); Carbon Dioxide 26 mmol/L (22-30); Chloride 108 mmol/L (98-107); Glucose 101 mg/dl (70-99); Potassium 4.4 mmol/L (3.5-5.1); Sodium 142 mmol/L (135-145); Total Bilirubin 0.7 mg/dl (0.2-1.3); Total Protein 7.3 g/dl (6.3-8.2); eGFR > 60.00
[2024-08-03 23:33] LABS: Troponin I 0.013 ng/ml
[2024-08-03 23:54] VITALS: BP 167/98
[2024-08-03 23:58] VITALS: BMI 23.5
[2024-08-04] VITALS (11 sets, daily range): BP systolic 134–196; BP diastolic 77–105
--- NOTE | 2024-08-04 01:16 | ED.GENMED ---
History of Present Illness
General
Chief Complaint: Blood Pressure Problem
Time Seen by Provider: 08/03/24 23:51
History of Present Illness
History of Present Illness:
This a pleasant 89-year-old male who presents with hypertension. He states that much of the day he had high blood pressure. He has been checking it off and on. This afternoon he developed arm pain so he came into the emergency department for
evaluation. Patient denies chest pain or shortness of breath.
Past History
Past History
ED Past Medical History: Asthma, Cancer (Prostate CA with Radiation), COPD, GERD, HTN (borderline) and Other (Bronchitis, BPH, Chronic sinus infections, DVT)
ED Past Surgical History: Orthopedic (THUMB) and Other (UMBILICAL AND VENTRAL HERNIA REPAIR 01/25/13)
Social History
Tobacco: 2nd hand smoke exposure
Alcohol: None
Drug: None
Personal:
Living: alone
Employment: Retired
Family History
Family History: Hypertension; Negative Sudden
Phy Exam
Physical Exam
Physical Exam:
Physical Exam
Vital signs and allergy list reviewed and agreed with.
GENERAL: Alert , in no apparent distress conversant and smiling, daughter at the bedside
EYE: pupils equal, EOMI, anicteric
NECK: Supple, no significant adenopathy. No masses. Trachea midline
ENT: Oropharynx is clear, mmm.
CARDIAC: Regular rate and rhythm . No M/R/G
LUNGS: Clear breath sounds bilaterally, no acute respiratory distress, no wheezes/rales/rhonchi
ABDOMEN: Soft, without focal tenderness, no r/g, Normal BSx4q
NEUROLOGICAL: Alert and oriented, no focal neuro deficits
SKIN: Warm and dry, skin intact.
MUSCULOSKELETAL: No edema, well perfused. Moves all 4 extremities
PSYCH: Normal and appropriate interaction.
Course
Orders/Labs/Results
Orders:
Orders
08/03/24 22:43
EKG [Electrocardiogram (*1)] Urgent
Reason for Study: Chest Pain
EKG- Treatment ONCE
08/03/24 23:00
Complete Blood Count/With Diff Urgent
Comprehensive Metabolic Panel Urgent
Troponin I Urgent
08/04/24 00:19
CR Chest - 2 Views Urgent
Comment:
Reason For Exam: htn
08/04/24 01:21
Metoprolol [Lopressor] 5 mg IV NOW STA
08/04/24 01:36
Metoprolol [Lopressor] 25 mg .ROUTE .STK-MED ONE
08/04/24 01:38
Metoprolol [Lopressor] 25 mg PO NOW STA
Abnormal Lab Results
08/03/24
23:00
RBC 4.62 L 10^6/uL
(4.70-6.10)
MCHC 32.9 L g/dL
(33.0-37.0)
Abs Immat Gran (auto) 0.1 H 10^3/uL
(0-0.05)
Absolute Monos (auto) 0.8 H 10^3/uL
(0.1-0.6)
Immature Gran % 1.4 H %
(0-0.5)
Monocytes % 11.5 H %
(1.7-9.3)
Eosinophils % 8.7 H %
(0-6)
Chloride 108 H mmol/L
(98-107)
Glucose 101 H mg/dl
(70-99)
08/03/24 23:00
08/03/24 23:00
Vital Signs
Initial and Last Documented VS:
Initial Vital Signs
Temp Pulse Resp BP Pulse Ox
98.0 F 67 18 191/107 97
08/03/24 22:58 08/03/24 22:58 08/03/24 22:58 08/03/24 22:58 08/03/24 22:58
Last Documented Vital Signs
Temp Pulse Resp BP Pulse Ox
98.0 F 78 19 196/95 97
08/03/24 22:58 08/04/24 01:39 08/04/24 00:40 08/04/24 02:09 08/04/24 02:09
*Critical Care Note
Total Time (30-74mins, 75-104mins- exclusive of procedures): Not Applicable
Update Note
Update Note:
Chest x-ray shows infiltrates that were previously seen albeit fainter in the past. Patient was at pulmonology today and daughter states that there was no concern for pneumonia. Patient is on doxycycline. Patient has no complaints. I did discuss
radiology over read of the x-ray. They will get a call should the official read differ from my read.
ED Attending Note
-
Portions of this chart may have been created with voice recognition software.� Occasional wrong word or��sound alike� substitutions may have occurred due to the inherent limitations of voice recognition software.
Discharge Plan
Departure
Patient Disposition: Home (Routine Discharge)
Date of Disposition: 08/04/24
Time of Disposition: 01:18
Patient with high blood pressure during this ER visit?: No
Condition: Good
Discharge Problem:
Hypertension
Instructions: High Blood Pressure (DC), BLOOD PRESSURE
Prescriptions:
No Action
Centrum Silver 1 EACH tablet
1 ea PO DAILY
fenofibrate nanocrystallized 48 MG tablet
48 mg PO QPM
losartan 50 MG tablet
100 mg PO DAILY
Rx Instructions:
07/11/23-PATIENT ONLY SUPPOSE TO BE TAKING ONE (100MG DAILY) BUT TAKES 2 DAILY (200MG DAILY) A DAY
Fish Oil 1 EACH capsule,delayed release(DR/EC)
2 ea PO BID
fexofenadine 60 mg Tablet
180 mg PO HS
aspirin 81 mg Tablet,Delayed Release (Dr/Ec)
81 mg PO DAILY
montelukast [Singulair] 10 mg Tablet
10 mg PO HS
Gemtesa 75 mg Tablet
75 mg PO DAILY
albuterol sulfate 2.5 mg /3 mL (0.083 %) Solution For Nebulization
2.5 mg INHALATION TID
budesonide 0.5 mg/2 mL Suspension For Nebulization
0.5 mg INHALATION BID
coenzyme Q10 [CoQ-10] 100 mg Capsule
100 mg PO BID
solifenacin [Vesicare] 10 mg Tablet
10 mg PO DAILY
sennosides [Senna Laxative] 8.6 mg Tablet
8.6 mg PO BID Qty: 60 0RF
acetaminophen 325 mg Tablet
650 mg PO Q4HPRN PRN (Reason: Mild Pain / Temp > 101) Qty: 100 0RF
polyethylene glycol 3350 [HealthyLax] 17 gram Powder In Packet
17 g PO DAILY Qty: 30 0RF
famotidine 20 mg Tablet
20 mg PO BID Qty: 60 0RF
metoprolol succinate 25 mg Tablet Extended Release 24 Hr
25 mg PO DAILY Qty: 30 0RF
Eliquis 5 mg Tablet
5 mg PO BID Qty: 60 0RF
Referrals:
Amador Westfall MD [Family Provider] -
Activity Restrictions/Additional Instructions:
It was a pleasure meeting you and taking part in your care. We hope for your continued healing and wellness.
Please read discharge instructions in their entirety. However, they are for general education and may not describe your exact diagnosis at discharge. Information on your ER visit and medical conditions were discussed with you along with appropriate
follow up information...
If indicated, please take your medications as instructed and indicated on discharge paperwork.
Please schedule a follow up appointment as directed. Call to schedule an appointment
Please return to the emergency department with ANY change in, persisting, or worsening of symptoms. If any of your symptoms do not improve, or persist, or become more severe within 6-12 hours, please return to the emergency department for further
care.
Please return to the emergency department if you develop a headache, neck pain/stiffness, fever greater than 100.4F, chest pain, shortness of breath, persistent nausea, vomiting, slurred speech, difficulty walking, numbness/tingling, weakness, signs
of infection or any other symptoms that are worrisome to you.
If you have any questions or concerns please do not hesitate to call the Hospital at or E-mail me directly at [email or web address]
Interventions
Interventions:
*Risk Screen - Suicide Last Done: 08/03/24 22:58
*General Assessment Last Done: 08/04/24 00:00
*Neglect/Abuse Screening Last Done: 08/03/24 22:58
*ED- Fall Risk Assessment Last Done: 08/03/24 22:58
*ED COVID-19 Vaccine History Last Done: 08/03/24 22:58
ED- Cardiac Assessment Last Done: 08/04/24 00:00
ED- Neurological Assessment Last Done: 08/04/24 00:00
ED- Pulmonary Assessment Last Done: 08/04/24 00:00
Discharge Date and Time
Print Language: IVORIAN
[2024-08-04] MEDS: LOPRESSOR 25 MG PO (01:39)
[2024-08-04] MEDS: CATAPRES 0.1 MG PO (03:04)
== END 2024-08-04 07:03 | disposition home or self-care (01) ==
LOC: EMR 22:40
PROVIDERS: Student in an Organized Health Care Education/Training Program; EMERGENCY PHYSICIAN Student in an Organized Health Care Education/Training Program; FAMILY PHYSICIAN Internal Medicine
DX: I10 Essential (primary) hypertension (principal)
CPT/HCPCS: 99285; 71046; 80053; 84484; 85025; 93005

== ENCOUNTER 2024-09-10 22:13 | Emergency (ER) | payer OTHER, SELFPAY ==
[2024-09-10 22:19] VITALS: BP 173/106
--- NOTE | 2024-09-11 01:36 | ED.GENMED ---
History of Present Illness
General
Chief Complaint: Fall
Time Seen by Provider: 09/11/24 01:36
History of Present Illness
History of Present Illness:
TIME OF INITIAL ENCOUNTER: 1 AM
HPI: Patient came in by ambulance after he slipped on papers at home. He denies head injury but is on Eliquis. He does not have much pain at rest but he does have severe pain when he attempts to move. He was wheezing earlier but does not feel
that he is wheezing now. He braced himself as he fell on his right side and had his arms outstretched injuring the right hand but has no significant pain at the palmar aspect of the right hand where he has bruising.
EXAM:
GENERAL: Well appearing in no distress except when he moves he seems to have significant pain, hard of hearing
CERVICAL SPINE: No midline c-spine tenderness with excellent AROM
HEAD: No evidence of craniofacial trauma
CHEST: No chest wall tenderness anteriorly however there is rather severe pain posteriorly on the right side
LUNGS: Equal lung sounds, no respiratory distress
ABDOMEN: No abdominal tenderness, no peritoneal signs
EXTREMITIES: Normal active range of motion, no tenderness, some scattered abrasions noted but he has excellent active range of motion at the hips and knees
NEURO: Excellent strength all extremities, appropriate mental status, normal speech/language
NUMBER AND COMPLEXITY OF PROBLEMS ADDRESSED AT THE ENCOUNTER
� Chronic conditions affecting care: A-fib on Eliquis, DVT, high blood pressure, prostate cancer, hard of hearing
� Acute Exacerbation and/or Progression of Chronic Illness: This is an acute problem
� Differential Diagnosis includes: Chest wall contusion, rib fractures, pneumothorax
AMOUNT AND/OR COMPLEXITY OF DATA TO BE REVIEWED AND ANALYZED
� I performed an independent evaluation of and my interpretation is:
EKG:
CT: Multiple right-sided fractures noted
X-rays: X-ray suggests right rib fractures however osteopenia limits detail, hip and pelvis negative
Laboratory Studies: White count 12.8, hemoglobin 12.7, chemistries unremarkable, blood noted on urinalysis however the pain appears to be localized to the mid ribs as opposed to in the renal region fentanyl
Other:
� Review of other/old records: The patient was seen here about a month ago with hypertension related concerns. He was also found to be hyponatremic a year ago.
� Clinical information was obtained by an independent historian: I spoke to family at bedside
� Prescriptions/Medications Considered but not given:
� Further testing considered but not performed:
RISK OF COMPLICATIONS AND/OR MORBIDITY OR MORTALITY OF PATIENT MANAGEMENT
� Social determinants of health affecting care: Lives at home
� Discussion with other providers: I spoke to vision radiologist who confirms right-sided fractures. I spoke to Dr. Samaniego at [facility] who accepts for transfer
� Escalation of care including admission/observation vs risk of discharge considered:
ANY OTHER UPDATES:
2 AM: Called [facility] for transfer as patient is 89 years old with multiple rib fractures. He is hemodynamically stable. Pain primarily only when he moves. Will give low-dose fentanyl.
Past History
Past History
ED Past Medical History: Asthma, Cancer (Prostate CA with Radiation), COPD, GERD, HTN (borderline) and Other (Bronchitis, BPH, Chronic sinus infections, DVT)
ED Past Surgical History: Orthopedic (THUMB) and Other (UMBILICAL AND VENTRAL HERNIA REPAIR 01/25/13)
Social History
Tobacco: 2nd hand smoke exposure
Alcohol: None
Drug: None
Personal:
Living: alone
Employment: Retired
Family History
Family History: Hypertension; Negative Sudden
Phy Exam
Physical Exam
Physical Exam:
See HPI
Course
Orders/Labs/Results
Orders:
Orders
09/11/24 00:13
Ribs, Right 3 View W/PA Chest [CR Ribs-right 3 Vw W/pa Chest*] Urgent
Comment:
Reason For Exam: fall
09/11/24 00:15
Hip, Right 2-3 Views [CR Hip - RT w/wo Pel 2-3 Vw*] Urgent
Comment:
Reason For Exam: fall, hip pain
Include a pelvis x-ray?: Yes
09/11/24 01:47
CT Chest W/o Iv Contrast Urgent
Comment:
Reason For Exam: trauma severe R posterior chest wall pain
CT Head W/o Iv Contrast Urgent
Comment:
Reason For Exam: fall on eliquis
Acetaminophen [Tylenol] 1,000 mg PO NOW STA
09/11/24 03:04
Basic Metabolic Panel Urgent
Complete Blood Count/With Diff Urgent
09/11/24 03:08
Fentanyl Citrate/Pf [Sublimaze] 50 mcg IV NOW STA
09/11/24 04:01
Urinalysis Reflex To Culture Urgent
Date Specimen was Collected: 09/11/24
Time Specimen was Collected: 03:59
Urine Microscopic Reflex Cult Urgent
Urine Culture Urgent
PABLITO Source: U
Specimen Description:
Date Specimen was Collected: 09/11/24
Time Specimen was Collected: 03:59
Abnormal Lab Results
09/11/24 09/11/24
03:04 04:01
WBC 12.8 H 10^3/uL
(4.8-10.8)
RBC 4.37 L 10^6/uL
(4.70-6.10)
Hgb 12.7 L g/dL
(13.0-18.0)
Hct 37.2 L %
(39.0-52.0)
Abs Immat Gran (auto) 0.1 H 10^3/uL
(0-0.05)
Absolute Neuts (auto) 9.3 H 10^3/uL
(1.4-6.5)
Absolute Lymphs (auto) 1.1 L 10^3/uL
(1.2-3.4)
Absolute Monos (auto) 1.3 H 10^3/uL
(0.1-0.6)
Absolute Eos (auto) 0.9 H 10^3/uL
(0-0.7)
Immature Gran % 1.0 H %
(0-0.5)
Lymphocytes % 8.9 L %
(20.5-51.1)
Monocytes % 9.9 H %
(1.7-9.3)
Eosinophils % 7.0 H %
(0-6)
Chloride 109 H mmol/L
(98-107)
Carbon Dioxide 21 L mmol/L
(22-30)
BUN 26 H mg/dl
(9-20)
Glucose 119 H mg/dl
(70-99)
Ur Occult Blood Reflex 4+ A
(Negative)
Urine Urobilinogen 2+ A
(Neg - 1+)
Leukocyte Esterase Rfl 1+ A
(Negative)
Urine RBC >100 A /HPF
(0-2)
Urine Bacteria (Reflex) Many A
(Negative)
Urine Albumin (Reflex) 2+ A
(Neg - Trace)
09/11/24 03:04
09/11/24 03:04
Vital Signs
Initial and Last Documented VS:
Initial Vital Signs
Temp Pulse Resp BP Pulse Ox
36.9 C 83 16 173/106 98
09/10/24 22:19 09/10/24 22:19 09/10/24 22:19 09/10/24 22:19 09/10/24 22:19
Last Documented Vital Signs
Temp Pulse Resp BP Pulse Ox
36.9 C 81 19 147/83 95
09/10/24 22:19 09/11/24 05:00 09/11/24 05:00 09/11/24 05:00 09/11/24 05:00
*Critical Care Note
Total Time (30-74mins, 75-104mins- exclusive of procedures): Not Applicable
ED Attending Note
-
Portions of this chart may have been created with voice recognition software.� Occasional wrong word or��sound alike� substitutions may have occurred due to the inherent limitations of voice recognition software.
Discharge Plan
Departure
Patient Disposition: Acute Care Hospital
Date of Disposition: 09/11/24
Time of Disposition: 03:06
Discharge Problem:
Multiple fractures of ribs
Prescriptions:
No Action
Centrum Silver 1 EACH tablet
1 ea PO DAILY
fenofibrate nanocrystallized 48 MG tablet
48 mg PO QPM
losartan 50 MG tablet
100 mg PO DAILY
Rx Instructions:
07/11/23-PATIENT ONLY SUPPOSE TO BE TAKING ONE (100MG DAILY) BUT TAKES 2 DAILY (200MG DAILY) A DAY
Fish Oil 1 EACH capsule,delayed release(DR/EC)
2 ea PO BID
fexofenadine 60 mg Tablet
180 mg PO HS
aspirin 81 mg Tablet,Delayed Release (Dr/Ec)
81 mg PO DAILY
montelukast [Singulair] 10 mg Tablet
10 mg PO HS
Gemtesa 75 mg Tablet
75 mg PO DAILY
albuterol sulfate 2.5 mg /3 mL (0.083 %) Solution For Nebulization
2.5 mg INHALATION TID
budesonide 0.5 mg/2 mL Suspension For Nebulization
0.5 mg INHALATION BID
coenzyme Q10 [CoQ-10] 100 mg Capsule
100 mg PO BID
solifenacin [Vesicare] 10 mg Tablet
10 mg PO DAILY
sennosides [Senna Laxative] 8.6 mg Tablet
8.6 mg PO BID Qty: 60 0RF
acetaminophen 325 mg Tablet
650 mg PO Q4HPRN PRN (Reason: Mild Pain / Temp > 101) Qty: 100 0RF
polyethylene glycol 3350 [HealthyLax] 17 gram Powder In Packet
17 g PO DAILY Qty: 30 0RF
famotidine 20 mg Tablet
20 mg PO BID Qty: 60 0RF
metoprolol succinate 25 mg Tablet Extended Release 24 Hr
25 mg PO DAILY Qty: 30 0RF
Eliquis 5 mg Tablet
5 mg PO BID Qty: 60 0RF
Referrals:
Amador Westfall MD [Family Provider] -
Hospital Transfer
Other hospital: [facility]
I certify that the patient requires transfer: Yes
Discussed case with accepting physician: Dr. Samaniego
Reason for transfer: continuity of care PCP
Interventions
Interventions:
*Risk Screen - Suicide Last Done: 09/10/24 22:19
*General Assessment Last Done: 09/11/24 02:02
*Neglect/Abuse Screening Last Done: 09/10/24 22:19
*ED- Fall Risk Assessment Last Done: 09/11/24 00:16
*ED COVID-19 Vaccine History Last Done: 09/11/24 02:01
*Nursing Disposition Last Done: 09/11/24 05:00
ED-Musculoskeletal Assessment Last Done: 09/11/24 01:55
ED- Neurological Assessment Last Done: 09/11/24 04:45
ED-Skin Assessment Last Done: 09/11/24 04:45
Discharge Date and Time
Discharge Date/Time: 09/11/24 04:45
Print Language: POLISH
[2024-09-11] MEDS: TYLENOL 1000 MG PO (01:50)
[2024-09-11 01:54] VITALS: BMI 23.5
[2024-09-11 01:56] VITALS: BP 140/105
[2024-09-11 02:00] VITALS: BP 161/85
[2024-09-11 03:14] LABS: % Basophils 0.5 % (0-2); % Lymphocytes 8.9 % (20.5-51.1); % Monocytes 9.9 % (1.7-9.3); % Neutrophils 72.7 % (42.2-75.2); Absolute Basophils 0.1 10^3/uL (0-0.2); Absolute Eosinophils 0.9 10^3/uL (0-0.7); Absolute Immature Granulocytes 0.1 10^3/uL (0-0.05); Absolute Lymphocytes 1.1 10^3/uL (1.2-3.4); Absolute Monocytes 1.3 10^3/uL (0.1-0.6); Absolute Neutrophils 9.3 10^3/uL (1.4-6.5); Hematocrit 37.2 % (39.0-52.0); Hemoglobin 12.7 g/dL (13.0-18.0); Mean Corp Hgb Conc. 34.1 g/dL (33.0-37.0); Mean Corpuscular Hgb 29.1 pg (27.0-31.0); Mean Corpuscular Volume 85.1 fL (80.0-94.0); Mean Platelet Volume 8.6 fL (7.4-10.4); Nucleated Red Blood Cells % 0 % (-); Platelet Count 248 10^3/uL (130-400); Red Blood Cell Count 4.37 10^6/uL (4.70-6.10); White Blood Cell Count 12.8 10^3/uL (4.8-10.8)
[2024-09-11] MEDS: SUBLIMAZE 50 MCG IV (03:16)
[2024-09-11 03:19] VITALS: BP 162/96
[2024-09-11 03:36] LABS: Blood Urea Nitrogen 26 mg/dl (9-20); Calcium 9.1 mg/dl (8.4-10.2); Carbon Dioxide 21 mmol/L (22-30); Chloride 109 mmol/L (98-107); Estimated Creatinine Clearance 39 ml/min; Glucose 119 mg/dl (70-99); Potassium 4.3 mmol/L (3.5-5.1); Sodium 139 mmol/L (135-145); eGFR 52.51
[2024-09-11 04:01] VITALS: BP 167/78
[2024-09-11 04:33] LABS: Urine Albumin 2+ (Neg - Trace); Urine Bilirubin Negative (Negative); Urine Character Slightly Cloudy (Clear); Urine Color Amber; Urine Glucose Negative (Negative); Urine Ketone Negative (Negative); Urine Leukocyte 1+ (Negative); Urine Nitrite Negative (Negative); Urine Occult Blood 4+ (Negative); Urine Urobilinogen 2+ (Neg - 1+)
[2024-09-11 04:46] LABS: Urine Amorphous Seen; Urine Squamous Cell >30 /LPF (Few)
[2024-09-11 04:47] LABS: Urine Bacteria Many (Negative); Urine Mucus Many; Urine Red Blood Cell >100 /HPF (0-2)
[2024-09-11 05:00] VITALS: BP 147/83
== END 2024-09-11 04:45 | disposition short-term general hospital (02) ==
LOC: EMR 22:13
PROVIDERS: EMERGENCY PHYSICIAN Emergency Medicine; FAMILY PHYSICIAN Internal Medicine
DX: S22.41XA Multiple fractures of ribs, right side, initial encounter for closed fracture (principal); W19.XXXA Unspecified fall, initial encounter; Y92.009 Unspecified place in unspecified non-institutional (private) residence as the place of occurrence of the external cause; I10 Essential (primary) hypertension; M41.9 Scoliosis, unspecified; N40.0 Benign prostatic hyperplasia without lower urinary tract symptoms; Z77.22 Contact with and (suspected) exposure to environmental tobacco smoke (acute) (chronic); Z79.01 Long term (current) use of anticoagulants; Z82.49 Family history of ischemic heart disease and other diseases of the circulatory system; Z86.718 Personal history of other venous thrombosis and embolism
CPT/HCPCS: 99284; 96374; 70450; 71101; 71250; 73502; 80048; 81003; 81015; 85025; 87077; 87086; 87147; 87186